=== PATIENT | female | born 1940 | race Caucasian/White ===

== ENCOUNTER 2016-12-04 13:43 | Emergency (ER) | payer MEDICARE ==
[2016-12-04 14:06] VITALS: BP 151/93
--- NOTE | 2016-12-04 14:31 | UC ---
Ear Complaint HPI - HPI Summary HPI Summary: GRAUDUAL ONSET OF DECREASED HEARING OVER THE PAST MONTH. H/O CERUMEN IMPACTIONS. NO OTHER COMPLAINTS. - History of Current Complaint Chief Complaint: UCEar Stated Complaint: LEFT EAR COMPLAINT Time Seen by Provider: 12/04/16 14:17 Hx Obtained From: Patient Hx Last Menstrual Period: n/a Onset/Duration: Gradual Onset, Lasting Weeks, Still Present Severity Initially: Moderate Severity Currently: Moderate Aggravating Factors: Nothing Alleviating Factors: Nothing Associated Signs/Symptoms: Positive: Hearing Loss - Allergies/Home Medications Allergies/Adverse Reactions: Allergies Allergy/AdvReac Type Severity Reaction Status Date / Time Sulfa Drugs Allergy Hives Verified 12/04/16 13:50 PMH/Surg Hx/FS Hx/Imm Hx Endocrine History Of: Denies: Diabetes, Thyroid Disease Cardiovascular History Of: Reports: Cardiac Disorders - RAPID HEART BEAT, Hypertension Respiratory History Of: Denies: COPD, Asthma GI/ History Of: Denies: Ulcer - Surgical History Surgical History: Yes Surgery Procedure, Year, and Place: L4/L5 and L5/S1 [place] [facility] [place] Family History Known Family History: Positive: Cardiac Disease - father with CAD, HTN DM, Hypertension, Diabetes - Social History Occupation: Retired Lives: With Family - SPOUSE RECENTLY PAST. Alcohol Use: None Substance Use Type: None Smoking Status (MU): Never Smoked Tobacco - Immunization History Most Recent Influenza Vaccination: Current for Season Review of Systems Constitutional: Negative Skin: Negative Eyes: Negative ENT: Other - SEE HPI Respiratory: Negative Cardiovascular: Negative Gastrointestinal: Negative Genitourinary: Negative Motor: Negative Neurovascular: Negative Musculoskeletal: Negative Neurological: Negative Psychological: Negative All Other Systems Reviewed And Are Negative: Yes Physical Exam Triage Information Reviewed: Yes Appearance: Well-Appearing, No Pain Distress, Well-Nourished Vital Signs: Initial Vital Signs Temp 98.4 F 12/04/16 13:53 Pulse 84 12/04/16 13:53 Resp 16 12/04/16 13:53 BP 151/93 12/04/16 13:53 Pulse Ox 96 12/04/16 13:53 Vital Signs Reviewed: Yes Eyes: Positive: Conjunctiva Clear. Negative: Discharge ENT: Positive: Hearing grossly normal, Pharynx normal. Negative: TMs normal - TM OCCLUDED WITH CERUMEN ON LEFT, Tonsillar swelling, Muffled/hoarse voice Neck: Positive: Supple, Nontender, No Lymphadenopathy Respiratory: Positive: Lungs clear, Normal breath sounds, No respiratory distress, No accessory muscle use Cardiovascular: Positive: RRR, No Murmur Musculoskeletal Exam: Normal Neurological: Positive: Alert, Muscle Tone Normal Psychological: Positive: Age Appropriate Behavior Skin Exam: Normal Re-Evaluation - Re-Evaluation First Eval Re-Evaluation Time: 14:30 - S/P IRRIGATION Change: Improved Ear Complaint Course/Dx - Differential Dx/Diagnosis Differential Diagnosis/HQI/PQRI: Cerumen Impaction, Otitis Externa, Otitis Media Provider Diagnoses: CERUMEN IMPACTION Discharge - Discharge Plan Condition: Stable Disposition: HOME Patient Education Materials: Cerumen Impaction (ED) Referrals: Suri Villavicencio MD [Primary Care Provider] - If Needed
== END 2016-12-04 14:43 | disposition home or self-care (01) ==
LOC: UCCORT 13:43
DX: H61.22 Impacted cerumen, left ear (principal); I10 Essential (primary) hypertension; Z88.2 Allergy status to sulfonamides
CPT/HCPCS: 99212; G0463

== ENCOUNTER 2018-07-16 06:42 | Inpatient (IN) | payer MEDICARE ==
--- OUTSIDE RECORDS SUMMARY | 2018-07-16 06:55 | XMS REPORT | Continuity of Care Document ---
:1940 External Reference #:[id number] Author Name Richa Eduardo Care Team Providers Name Role Phone Suri Villavicencio MD Primary Care Physician Unavailable Payers Type Date Identification Numbers Payment Provider Subscriber Policy Number: [id number] Medicare Carola Champion PayID: [id number] [address] [place] [address] Policy Number: [id number] [facility] [employer]. Program Carola Champion PayID: [id number] [address] [place] [address] Advance Directives Description No Information Available Problems Date Description Provider Status Onset: 10/27/2010 Spinal stenosis of lumbar region Suri Villavicencio M.D. Active Onset: 10/27/2010 Benign hypertensive heart disease without Suri Villavicencio M.D. Active congestive heart failure Onset: 10/27/2010 Carotid artery occlusion Suri Villavicencio M.D. Active Onset: 10/27/2010 Hyperlipidemia Suri Villavicencio M.D. Active Onset: 10/27/2010 Mitral valve disorder Suri Villavicencio M.D. Active Onset: 10/27/2010 Right bundle branch block Suri Villavicencio M.D. Active Family History Date Family Member(s) Problem(s) Comments General dad had diabetes, mother had cad Father Diabetes Mellitus, II Mother Coronary Artery Disease (CAD) Social History Type Date Description Comments Sex Unknown Marital Status , has cognitive impairment she is primary caregiver Cigarette Use Negative For Never Smoked Cigarettes ETOH Use Denies alcohol use Recreational Drug Use Denies Drug Use Tobacco Use Start: Unknown Patient has never smoked Smoking Status Reviewed: 03/06/18 Patient has never smoked Allergies, Adverse Reactions, Alerts Date Description Reaction Status Severity Comments 07/31/2005 Tagamet Active diarrhea 11/07/2005 Sulfa Active 10/27/2010 Benadryl Active excessive sedation Medications Medication Date Status Form Strength Qnty SIG Indications Ordering Provider Metoprolol 05/14/ Active Tablets ER 25mg 90tab 1 by I11.9 Suri Succinate ER 2017 24HR s mouth Saud, every M.D. evening mdd 1 Betamethasone 04/11/ Active Ointment 0.1% 45gm small L20.9 Suri Valerate 2016 amount to isabel Villavicencio M.DRell area twice a day Pramipexole 03/07/ Active Tablets 0.125mg 90tab one at M48.06 Suri Dihydrochloride 2016 s bedtime Ashley Villavicencio Omeprazole 05/10/ Active Capsules 40mg 90cap Take One K21.[address] s Capsule Saud, By Mouth M.DRell Every Day Enalapril Maleate 05/23/ Active Tablets 2.5mg 180ta Take One Suri 2009 bs Tablet By Saud, Mouth M.D. Twice A Day Blood Pressure 05/10/ Active Kit 1unit as I11.9 Suri Kit Manual 2009 s directed Ashley Villavicencio Aspirin 07/31/ Active Chewtabs 81mg 1 PO qd Suri 2004 Ashley Villavicencio Methimazole / Active Tablets 10mg 1 tab by Unknown 0000 mouth once a day Diclofenac Sodium 03/06/ Hx Tablets DR 50mg 60tab 1 by Suri 2017 - s mouth Saud, 04/29/ twice M.D. 2018 daily Capsaicin 03/06/ Hx Cream 0.1% 42.50 apply to Suri 2018 - 0gm right Saud, 03/13/ hand 4 M.D. 2018 times daily as needed Azithromycin 07/03/ Hx Tablets 250mg 6tabs 2 by J20.9 Suri 2017 - mouth Saud, 10/25/ today, 1 M.D. 2018 by mouth day 2 thru 5 Cyclobenzaprine 11/13/ Hx Tablets 10mg 45tab take 1 M51.9 Suri HCL 2017 - s tablet by Saud, 10/25/ mouth M.D. 2018 three times a day if needed Lidocaine 11/13/ Hx Ointment 5% 60gm apply to S33.5xxA Suri 2017 - affected Saud, 04/11/ area up M.D. 2016 to twice a day Naproxen 11/13/ Hx Tablets 500mg 30tab 1 by S33.5xxA Suri 2016 mouth Saud, 06/25/ twice a M.D. 2017 day as needed Amoxicillin/Clavu 08/09/ Hx Tablets 500-125mg 20tab 1 po bid J01.90 Suri lanate Potassium 2015 Saud, 09/26/ M.D. 2016 Amoxicillin/Clavu 05/29/ Hx Tablets 500-125mg 20tab 1 po bid J20.9 Suri lanate Potassium 2015 Saud, 08/09/ M.D. 2016 Ropinirole HCL 12/29/ Hx Tablets 0.25mg 90tab 1 tab by G25.81 Suri 2015 mouth Saud, 03/07/ every M.D. 2016 night at bedtime may increase to every 8 hours as needed for leg spasms Amoxicillin/Clavu 09/27/ Hx Tablets 500-125mg 20tab 1 po bid J20.8 Suri lanate Potassium 2015 Saud, M.D. 2016 Silver 07/15/ Hx Cream 1% 50gms apply to 682.2 Suri Sulfadiazine 2012 - open Saud, 12/14/ areas bid M.D. 2014 Gabapentin 06/18/ Hx Capsules 100mg 30cap 1 po at 724.02 Suri 2012 hs Saud, M.D. 2016 Metoprolol 02/13/ Hx Tablets ER 25mg 60tab take one I11.9 Suri Succinate ER 2011 - 24HR s tablet by Saud, 05/14/ mouth M.D. 2017 every other day Omeprazole 05/10/ Hx Capsules 40mg 1 po bid 530.81 Suri 2010 Carlton Villavicencio, 05/10/ M.D. 2010 Erythromycin Base 11/09/ Hx Tablets 500mg 20tab 1 by J20.8 Suri 2010 mouth Saud, 12/29/ twice a M.D. 2015 day Benadryl 10/19/ Hx Capsules 25mg 50cap 1 po prn 977.9 Suir 2010 jolly Villavicencio, 10/27/ directed M.D. 2010 Amoxicillin/Clavu 10/19/ Hx Tablets 500-125mg 20tab 1 po bid 977.9 Suri lanate Potassium 2010 Saud, M.D. 2010 Cyclobenzaprine 09/14/ Hx Tablets 10mg 60tab take 1 M51.9 Suri HCL 2010 - tablet by Saud, 11/13/ mouth M.D. 2016 three times a day if needed Naproxen Sodium 09/14/ Hx Tablets 550mg 60tab 1 po bid 722.93 Suri 2010 - s Saud, M.D. 2015 Amlodipine 09/08/ Hx Tablets 5mg 30tab 1 po qd 402.10 Suri Besylate 2010 - s Saud, M.D. 2010 Tramadol HCL 05/10/ Hx Tablets 50mg 60tab 1 po q 6 Suri 2009 - s hours prn Saud, 02/13/ pain M.D. 2011 Omeprazole Hx Capsules 20mg 30cap 1 po qd 530.81 Suri 2009 - DR warren at Saud, 05/10/ bedtime M.D. 2010 Cyclobenzaprine 11/11/ Hx Tablets 5mg 20tab i bid 722.20 Suri HCL 2009 - s Saud, M.D. 2010 Lidoderm 11/11/ Hx Patches 5% 30uni apply 722.20 Suri 2009 - ts patch to Saud, 02/13/ affected M.D. 2011 area of back change daily Flector 11/11/ Hx Patches 1.3% 5unit 1 patch 722.20 Suri 2009 - s to Saud, 02/13/ affected M.D. 2011 area Voltaren 11/11/ Hx Gel 1% 1tube 4 inches 722.20 Suri 2009 - as Saud, 02/13/ directed M.D. 2011 to affected area qid. Fish Oil 07/29/ Hx Capsules 1000mg 1 cap qd Suri 2008 - Saud, 02/13/ M.D. 2011 Lotrisone 01/29/ Hx Cream 0.05%;1 % 15gm Apply AD 692.89 Suri 2005 - sherin Saud, M.D. 2005 Ranitidine 11/07/ Hx Tablets 75mg 15tab 1 qd 995.3 Suri 2005 - s Saud M.D. 2005 Bactrim DS 10/23/ Hx Tablets 160mg;800 14tab 1 PO bid Suri 2006 - mg s Saud, M.DRell 2006 Amoxil 09/25/ Hx Tablets 500mg QS 1 PO tid 381.10 Suri 2005 - X 5 Days Saud, M.DRell 2005 Vasotec 07/31/ Hx Tablets 2.5mg 100ta po qd Suri 2004 - bs Saud, .D. 2009 Vitamin C 07/31/ Hx Tablets 500mg 1 PO qd Suri 2004 Carlton Villavicencio, M.D. 2011 Vitamin E 07/31/ Hx Capsules 400Units 1 PO qd Suri 2004 Saud, M.D. 2011 Calcium Carbonate 07/31/ Hx Tablets 500mg 1 po qd Suri / Vit D 2004 Saud, .D. 2017 Famotidine / Hx Tablets 20mg Unknown 0000 - 2017 Oxycodone-Acetami 00/ Hx Tablets 5-325mg Take One Unknown nophen 0000 - Tablet By 2017 Every 4 To 6 Hours Maximum Daily Dose 6 Ondansetron / Hx Tablets 4mg Unknown 0000 - Dispers 2017 Oxycodone-Acetami 00/ Hx Tablets 5-325mg Unknown nophen 0000 - 2017 Medications Administered in Office Medication Date Status Form Strength Qnty SIG Indications Ordering Provider B-12 Injection Administered Injection Suri Villavicencio M.D. Immunizations CPT Code Status Date Vaccine Lot # [id number] Given 05/14/2018 Influenza Virus (Afluria) Split Virus 3 Years Of Age And Older Q2035 Given 04/30/2017 Influenza Virus (Afluria) Split Virus 3 Years [id number] Of Age And Older Q2037 Given 07/03/2016 Influenza Vaccine (Fluvirin) 3 Years Of Age Or [id number] Older Q2035 Given 06/09/2015 Influenza Virus (Afluria) Split Virus 3 Years [id number] Of Age And Older Q2037 Given 05/04/2014 Influenza Vaccine (Fluvirin) 3 Years Of Age Or Older Q2037 Given 05/04/2014 Influenza Vaccine (Fluvirin) 3 Years Of Age Or [id number] Older Q2035 Given 06/18/2013 Influenza Virus (Afluria) Split Virus 3 Years [id number] Of Age And Older Q2037 Given 06/17/2012 Influenza Vaccine (Fluvirin) 3 Years Of Age Or [id number] Older Q2036 Given 04/27/2011 Flulaval [id number] 82526 Given 05/23/2010 Influenza Vaccine [id number] 35593 Given 05/06/2009 Influenza Vaccine [id number] 90701 Given 01/28/2009 Tetanus Shot [id number] 31817 Given 05/28/2008 Influenza Vaccine [id number] 54399 Given 05/31/2007 Influenza Vaccine [id number] 60005 Given 05/28/2006 Influenza Vaccine [id number] 14454 Given 06/13/2005 Influenza Vaccine [id number] 71453 Given 06/13/2005 Influenza Vaccine 55972 Given 07/22/2004 Influenza Vaccine 40402 Given 04/20/2002 [place] [address] Given 05/20/1997 DT Immunization DIP/Tet (History Only) Vital Signs Date Vital Result Comment 06/25/2018 10:54am BP Systolic 150 mmHg BP Diastolic 80 mmHg Heart Rate 90 /min Height 60 inches 5'0" Weight 160.00 lb BMI (Body Mass Index) 31.2 kg/m2 O2 % BldC Oximetry 94 % 05/14/2018 1:53pm BP Systolic 136 mmHg BP Diastolic 70 mmHg Heart Rate 101 /min Respiratory Rate 18 /min Height 60 inches 5'0" Weight 169.00 lb BMI (Body Mass Index) 33.0 kg/m2 O2 % BldC Oximetry 96 % 04/29/2018 9:58am BP Systolic 138 mmHg BP Diastolic 70 mmHg Heart Rate 116 /min Respiratory Rate 18 /min Height 60 inches 5'0" Weight 169.00 lb BMI (Body Mass Index) 33.0 kg/m2 O2 % BldC Oximetry 95 % 04/01/2018 2:48pm BP Systolic 138 mmHg BP Diastolic 80 mmHg Heart Rate 106 /min Respiratory Rate 18 /min Height 60 inches 5'0" Weight 167.00 lb BMI (Body Mass Index) 32.6 kg/m2 O2 % BldC Oximetry 95 % 03/13/2018 3:24pm BP Systolic 154 mmHg BP Diastolic 80 mmHg Height 60 inches 5'0" Weight 167.00 lb BMI (Body Mass Index) 32.6 kg/m2 03/06/2018 9:44am BP Systolic 152 mmHg BP Diastolic 70 mmHg Height 60 inches 5'0" Weight 167.00 lb BMI (Body Mass Index) 32.6 kg/m2 10/25/2017 9:49am BP Systolic 178 mmHg BP Diastolic 84 mmHg BP Systolic Recheck 140 mmHg BP Diastolic Recheck 82 mmHg Height 60 inches 5'0" Weight 173.00 lb BMI (Body Mass Index) 33.8 kg/m2 07/03/2017 10:36am BP Systolic 160 mmHg BP Diastolic 90 mmHg Heart Rate 86 /min Body Temperature 96.0 F O2 % BldC Oximetry 96 % 04/30/2017 11:19am BP Systolic 160 mmHg BP Diastolic 80 mmHg Height 60 inches 5'0" Weight 177.00 lb BMI (Body Mass Index) 34.6 kg/m2 04/11/2017 1:41pm BP Systolic 158 mmHg BP Diastolic 90 mmHg Height 60 inches 5'0" 12/27/2016 9:57am BP Systolic 140 mmHg BP Diastolic 80 mmHg Height 62 inches 5'2" Weight 177.00 lb BMI (Body Mass Index) 32.4 kg/m2 11/13/2016 1:30pm BP Systolic 150 mmHg BP Diastolic 80 mmHg 09/26/2016 2:38pm BP Systolic 130 mmHg BP Diastolic 90 mmHg 09/12/2016 10:37am BP Systolic 140 mmHg BP Diastolic 90 mmHg 08/09/2016 2:49pm BP Systolic 148 mmHg BP Diastolic 72 mmHg Body Temperature 97.7 F 07/03/2016 11:10am BP Systolic 142 mmHg BP Diastolic 80 mmHg Height 60 inches 5'0" Weight 178.00 lb BMI (Body Mass Index) 34.8 kg/m2 05/29/2016 11:33am BP Systolic 150 mmHg BP Diastolic 90 mmHg Body Temperature 99.5 F 04/18/2016 11:15am BP Systolic 122 mmHg BP Diastolic 74 mmHg Height 60 inches 5'0" Weight 165.00 lb BMI (Body Mass Index) 32.2 kg/m2 03/07/2016 2:22pm BP Systolic 140 mmHg BP Diastolic 80 mmHg 12/30/2015 10:24am BP Systolic 136 mmHg BP Diastolic 70 mmHg Height 60 inches 5'0" Weight 175.00 lb BMI (Body Mass Index) 34.2 kg/m2 09/27/2015 11:50am BP Systolic 130 mmHg BP Diastolic 80 mmHg 06/09/2015 10:58am BP Systolic 140 mmHg BP Diastolic 80 mmHg Height 60 inches 5'0" Weight 176.00 lb BMI (Body Mass Index) 34.4 kg/m2 03/08/2015 11:31am BP Systolic 140 mmHg BP Diastolic 80 mmHg Height 60 inches 5'0" Weight 178.00 lb BMI (Body Mass Index) 34.8 kg/m2 12/14/2014 2:53pm BP Systolic 128 mmHg BP Diastolic 80 mmHg Body Temperature 98.7 F 12/08/2014 11:02am BP Systolic 156 mmHg BP Diastolic 86 mmHg Height 60 inches 5'0" Weight 174.00 lb BMI (Body Mass Index) 34.0 kg/m2 11/09/2014 11:40am BP Systolic 140 mmHg BP Diastolic 80 mmHg 06/15/2014 1:37pm BP Systolic 148 mmHg BP Diastolic 90 mmHg BP Systolic Recheck 136 mmHg BP Diastolic Recheck 82 mmHg Height 60 inches 5'0" Weight 168.00 lb BMI (Body Mass Index) 32.8 kg/m2 12/16/2013 2:02pm BP Systolic 116 mmHg BP Diastolic 70 mmHg Height 60 inches 5'0" Weight 166.00 lb BMI (Body Mass Index) 32.4 kg/m2 07/23/2013 11:13am BP Systolic 140 mmHg BP Diastolic 70 mmHg 06/18/2013 11:12am BP Systolic 130 mmHg BP Diastolic 80 mmHg Height 60 inches 5'0" Weight 169.00 lb BMI (Body Mass Index) 33.0 kg/m2 03/17/2013 10:55am BP Systolic 122 mmHg BP Diastolic 70 mmHg Height 60 inches 5'0" Weight 171.00 lb BMI (Body Mass Index) 33.4 kg/m2 12/16/2012 11:03am BP Systolic 142 mmHg BP Diastolic 88 mmHg Height 60 inches 5'0" Weight 171.00 lb BMI (Body Mass Index) 33.4 kg/m2 08/01/2012 11:50am BP Systolic 140 mmHg BP Diastolic 74 mmHg 06/17/2012 11:08am BP Systolic 142 mmHg BP Diastolic 84 mmHg Height 60 inches 5'0" Weight 172.00 lb BMI (Body Mass Index) 33.6 kg/m2 02/14/2012 11:11am BP Systolic 136 mmHg BP Diastolic 78 mmHg Height 60 inches 5'0" Weight 174.00 lb BMI (Body Mass Index) 34.0 kg/m2 08/09/2011 2:19pm BP Systolic 130 mmHg BP Diastolic 70 mmHg BP Systolic Recheck 114 mmHg BP Diastolic Recheck 68 mmHg Height 60 inches 5'0" Weight 171.00 lb BMI (Body Mass Index) 33.4 kg/m2 05/10/2011 2:55pm BP Systolic 141 mmHg BP Diastolic 80 mmHg Height 60 inches 5'0" Weight 174.00 lb BMI (Body Mass Index) 34.0 kg/m2 04/27/2011 11:16am BP Systolic 130 mmHg BP Diastolic 70 mmHg Weight 174.00 lb 03/20/2011 2:18pm BP Systolic 132 mmHg BP Diastolic 72 mmHg Height 60 inches 5'0" Weight 175.00 lb BMI (Body Mass Index) 34.2 kg/m2 01/23/2011 10:33am BP Systolic 138 mmHg BP Diastolic 70 mmHg Height 60 inches 5'0" Weight 175.00 lb BMI (Body Mass Index) 34.2 kg/m2 11/09/2010 10:27am BP Systolic 132 mmHg BP Diastolic 80 mmHg Body Temperature 98.6 F Height 60 inches 5'0" Weight 175.00 lb BMI (Body Mass Index) 34.2 kg/m2 10/27/2010 12:21pm BP Systolic 120 mmHg BP Diastolic 72 mmHg 10/19/2010 1:32pm BP Systolic 146 mmHg BP Diastolic 80 mmHg Weight 169.00 lb 10/06/2010 10:05am BP Systolic 140 mmHg BP Diastolic 70 mmHg Weight 169.00 lb 09/14/2010 10:29am BP Systolic 156 mmHg BP Diastolic 88 mmHg Weight 169.00 lb 09/08/2010 12:33pm BP Systolic 160 mmHg BP Diastolic 90 mmHg 09/06/2010 10:17am BP Systolic 164 mmHg BP Diastolic 92 mmHg Weight 170.00 lb 08/10/2010 9:52am BP Systolic 138 mmHg BP Diastolic 72 mmHg Height 60 inches 5'0" Weight 170.00 lb BMI (Body Mass Index) 33.2 kg/m2 05/23/2010 10:40am BP Systolic 148 mmHg BP Diastolic 78 mmHg 05/23/2010 10:15am BP Systolic 160 mmHg BP Diastolic 84 mmHg 05/10/2010 12:13pm BP Systolic 180 mmHg BP Diastolic 86 mmHg 05/10/2010 11:18am BP Systolic 210 mmHg BP Diastolic 88 mmHg Height 62 inches 5'2" Weight 173.00 lb BMI (Body Mass Index) 31.6 kg/m2 02/15/2010 10:59am BP Systolic 122 mmHg BP Diastolic 70 mmHg Height 59.50 inches 4'11.50" Weight 170.00 lb BMI (Body Mass Index) 33.8 kg/m2 11/29/2009 10:30am BP Systolic 138 mmHg BP Diastolic 82 mmHg 11/15/2009 10:44am BP Systolic 140 mmHg BP Diastolic 86 mmHg 11/11/2009 1:39pm BP Systolic 128 mmHg BP Diastolic 80 mmHg 07/29/2009 11:50am BP Systolic 146 mmHg BP Diastolic 84 mmHg 07/29/2009 10:28am BP Systolic 154 mmHg BP Diastolic 90 mmHg Weight 170.00 lb 01/28/2009 10:24am BP Systolic 146 mmHg BP Diastolic 78 mmHg Height 59.50 inches 4'11.50" Weight 169.00 lb BMI (Body Mass Index) 33.6 kg/m2 10/02/2008 10:23am BP Systolic 130 mmHg BP Diastolic 80 mmHg Height 59.50 inches 4'11.50" Weight 168.00 lb BMI (Body Mass Index) 33.4 kg/m2 07/30/2008 10:12am BP Systolic 144 mmHg BP Diastolic 90 mmHg Height 59.50 inches 4'11.50" Weight 172.00 lb BMI (Body Mass Index) 34.2 kg/m2 03/18/2008 10:10am BP Systolic 124 mmHg BP Diastolic 68 mmHg Height 59.50 inches 4'11.50" Weight 173.00 lb BMI (Body Mass Index) 34.4 kg/m2 01/30/2008 9:55am BP Systolic 140 mmHg BP Diastolic 88 mmHg Height 59.50 inches 4'11.50" Weight 175.00 lb BMI (Body Mass Index) 34.8 kg/m2 08/01/2007 10:23am BP Systolic 144 mmHg BP Diastolic 86 mmHg Height 59.50 inches 4'11.50" Weight 173.00 lb BMI (Body Mass Index) 34.4 kg/m2 01/24/2007 12:10pm BP Systolic 146 mmHg BP Diastolic 78 mmHg Height 59.50 inches 4'11.50" Weight 175.00 lb BMI (Body Mass Index) 34.8 kg/m2 07/30/2006 1:49pm BP Systolic 138 mmHg BP Diastolic 70 mmHg Height 59.50 inches 4'11.50" Weight 178.00 lb BMI (Body Mass Index) 35.3 kg/m2 01/29/2006 1:54pm BP Systolic 132 mmHg BP Diastolic 84 mmHg Weight 175.00 lb 11/07/2005 12:01pm BP Systolic 130 mmHg BP Diastolic 84 mmHg 10/13/2005 12:03pm BP Systolic 130 mmHg BP Diastolic 82 mmHg Body Temperature 97.7 F Weight 176.00 lb 09/25/2005 1:43pm BP Systolic 142 mmHg BP Diastolic 92 mmHg Weight 176.00 lb Results Test Date Facility Test Result H/L Range Note Laboratory test 01/15/2018 [facility] SEE RESULT [address] [place] [place] [address] [phone] CBC W/ Diff & 10/15/2017 [facility] WBC 5.7 3.8-10.[address] thous/[place] [address] [phone] RBC 5.21 mill/L High 3.80-5.10 Hemoglobin 13.1 g/dL 11.7-15.5 Hematocrit 39.7 % 35.0-45.0 MCV 76.3 FL Low 80.0-100.0 MCH 25.1 pg Low 27.0-33.0 MCHC 32.8 g/dL 32.0-36.0 RDW 14.6 % 11.0-15.0 Platelet Count 188 thous/L 140-400 Platelet Sufficiency PENDING MPV 8.3 FL 7.5-12.5 Neutrophils,Absolute 2710 cells/L 4160-5502 Bands,Absolute PENDING Metamyelocytes,Absolute PENDING Myelocytes,Absolute PENDING Promyelocytes,Absolute PENDING Lymphocytes,Absolute 2370 cells/L 850-3900 Monocytes,Absolute 400 cells/L 200-950 Eosinophils,Absolute 160 cells/L 15-500 Basophils,Absolute 20 cells/L 0-200 Blast Cells,Absolute PENDING Nucleated RBC,Absolute PENDING Total Neutrophils,% 48 % 40-75 Bands,% PENDING Metamyelocytes,% PENDING Myelocytes,% PENDING Promyelocytes,% PENDING Total Lymphocytes,% 42 % 12-47 Monocytes,% 7 % 4-12 Eosinophils,% 3 % 0-4 Basophils,% 0 % 0-1 2 Blasts,% PENDING Nucleated RBC PENDING RBC Morphology PENDING Anisocytosis PENDING Poikilocytosis PENDING Microcytosis PENDING Macrocytosis PENDING Polychromasia PENDING Hypochromasia PENDING Target Cells PENDING Basophilic Stippling PENDING Comment PENDING Basic Metabolic Panel 10/15/2017 [facility] Sodium 141 mmol/L 135-[address] [place] [address] [phone] Potassium 4.2 mmol/L 3.5-5.3 Chloride 106 mmol/L 98-110 Carbon Dioxide 28 mmol/L 20-31 Calcium 9.0 mg/dL 8.6-10.4 Glucose 108 mg/dL High 65-99 3 Urea Nitrogen (BUN) 13 mg/dL 7-25 Creatinine 0.74 mg/dL 0.60-0.93 4 BUN/Creatinine Ratio 17.7 6-22 Egfr Non-Afr. Citizen Of [place] 78 ML/MIN/1.73M2 > Or=60 Egfr 91 ML/MIN/1.73M2 > Or=60 Lipid Panel 10/15/2017 [facility] Cholesterol 161 mg/dL <[address] [place] [address] [phone] HDL Cholesterol 29 mg/dL Low >50 Cholesterol/HDL Ratio 5.6 CALC High <5.0 LDL Chol,Calculated 103 mg/dL High 0-100 5 Triglycerides 170 mg/dL High <150 Non-HDL Cholesterol 132 mg/dL High <130 6 Laboratory test 10/15/2017 [facility] Hemoglobin A1c 5.8 % High 0-5.6 [address] [place] [address] [phone] Laboratory test 07/18/2017 [facility] SEE RESULT [address] [place] [place] [address] [phone] Laboratory test 05/22/2017 [facility] SEE RESULT [address] [place] [place] [address] [phone] Basic Metabolic 04/24/2017 [facility] Sodium 140 mmol/L 135-[address] [place] [address] [phone] Potassium 4.3 mmol/L 3.5-5.3 Chloride 104 mmol/L 98-110 Carbon Dioxide 25 mmol/L 20-31 Calcium 9.2 mg/dL 8.6-10.4 Glucose 129 mg/dL High 65-99 10 Urea Nitrogen 15 mg/dL 7-25 Creatinine 0.82 mg/dL 0.60-0.93 11 BUN/Creatinine Ratio 17.9 6-22 Egfr Non-Afr. Citizen Of [place] 69 ML/MIN/1.73M2 > Or=60 Egfr 80 ML/MIN/1.73M2 > Or=60 Laboratory test 04/24/2017 [facility] Hemoglobin A1c 6.1 % High 0-5.6 [address] [place], [place] [id number] [phone] TSH & T4,Free 04/24/2017 [facility] TSH 1.14 0.40-4.[address] mIU/L [place], [place] [id number] [phone] T4,Free 1.7 ng/dL 0.8-1.8 Iron Deficiency Profile 04/24/2017 [facility] Iron,Total 79 g/dL 45- [address] [place] [address] [phone] Tibc 395 g/dL 250-450 % Saturation 20 % 11-50 Ferritin 19 NG/ML Low 20-288 Ua RFX Micro & 04/19/2017 [facility] Urine Color YELLOW Yellow 14 Culture II [address] [place] [address] [phone] Urine Clarity CLEAR Clear Urine Glucose - Dipstick NEGATIVE mg/dL Negative Urine Bilirubin - Dipstick NEGATIVE Negative Urine Ketone NEGATIVE mg/dL Negative Urine Specific Dale >=1.030 1.010-1.030 Urine Blood NEGATIVE Negative Urine PH 5.0 Low 6.5-7.5 Urine Protein - Dipstick TRACE mg/dL Negative Urine Urobilinogen - Dipstick 0.2 E.U./dL 0.2-1.0 Urine Nitrite - Dipstick NEGATIVE Negative Urine Leuk Esterase NEGATIVE Negative Source: URINE, CLEAN CAT <SEE NOTE> 15 CBS W/Automated 04/19/2017 [facility] White Blood 6.7 K/uL 3.1-10.[address] [place] [address] [phone] Red Blood Count 5.26 M/uL 3.90-5.40 Hemoglobin 13.9 gm/dL 11.6-15.8 Hematocrit 41.2 % 36.0-46.1 Mean Cell Volume 78.3 fl Low 80.9-99.0 Mean Corpuscular HGB 26.4 pg 25.9-32.7 Mean Corpuscular HGB Conc 33.7 g/dL 30.8-34.3 Platelet Count 197 K/uL 150-400 Red Cell Distri Width SD 38.6 fl 3-47 Red Cell Distri Width %CV 13.6 % 11.7-14.4 Mean Platelet Volume 9.5 fL 8.9-12.4 Neut% 55.3 % 40.4-72.8 Lymph % 33.6 % 20.0-42.0 [place] % 8.1 % 4.3-13.2 Eo% 2.7 % 0.0-6.6 Bas% 0.3 % 0.0-1.1 Neut# 3.68 K/uL 1.8-7.0 Lymph # 2.24 K/uL 1.0-4.0 [place] # 0.54 K/uL 0.3-0.9 Eos # 0.18 K/uL 0.0-0.5 Baso # 0.02 K/uL 0.0-0.1 Comprehensive 04/19/2017 [facility] Glucose 190 mg/ dL High 74-106 Metabolic Panel [address] [place], [place] [id number] [phone] BUN 17 mg/dL 7-18 Creatinine 1.0 mg/dL 0.6-1.3 Glom Filtration Rate, Estimate 57 mL/min >60 If >60 mL/min >60 16 BUN/Creat 17.0 ratio Sodium 143 mmol/L 136-145 Potassium 4.0 mmol/L 3.5-5.1 Chloride 109 mmol/L High 98-107 Carbon Dioxide 27 mmol/L 21-32 Anion Gap 7 mEq/L Low 8-16 Calcium 9.0 mg/dL 8.5-10.1 Total Protein 7.7 g/dL 6.4-8.2 Albumin 3.7 g/dL 3.4-5.0 Globulin 4.0 g/dL 1.9-4.3 Alb/Glob 0.9 ratio Bilirubin,Total 0.5 mg/dL 0.2-1.0 Sgot/Ast 42 U/L High 15-37 SGPT/Alt 57 U/L 12-78 Alkaline Phosphatase 113 U/L 45-117 Laboratory test 04/19/2017 [facility] Lipase 353 U/L 73-[address] [place] [address] [phone] Laboratory test 04/19/2017 [facility] Troponin-I < 0.015 [address] ng/[place] [address] [phone] CBC W/ Diff & PLT 12/20/2016 [facility] WBC 6.1 3.8-10.[address] [place] [address] [phone] RBC 5.35 mill/L High 3.80-5.10 Hemoglobin 13.7 g/dL 11.7-15.5 Hematocrit 42.5 % 35.0-45.0 MCV 79.5 FL Low 80.0-100.0 MCH 25.6 pg Low 27.0-33.0 MCHC 32.2 g/dL 32.0-36.0 RDW 14.1 % 11.0-15.0 Platelet Count 213 thous/L 140-400 Platelet Sufficiency PENDING MPV 8.3 FL 7.5-12.5 Neutrophils,Absolute 3370 cells/L 4788-1580 Bands,Absolute PENDING Metamyelocytes,Absolute PENDING Myelocytes,Absolute PENDING Promyelocytes,Absolute PENDING Lymphocytes,Absolute 2110 cells/L 850-3900 Monocytes,Absolute 400 cells/L 200-950 Eosinophils,Absolute 200 cells/L 15-500 Basophils,Absolute 30 cells/L 0-200 Blast Cells,Absolute PENDING Nucleated RBC,Absolute PENDING Total Neutrophils,% 55 % 40-75 Bands,% PENDING Metamyelocytes,% PENDING Myelocytes,% PENDING Promyelocytes,% PENDING Total Lymphocytes,% 35 % 12-47 Monocytes,% 7 % 4-12 Eosinophils,% 3 % 0-4 Basophils,% 0 % 0-1 19 Blasts,% PENDING Nucleated RBC PENDING RBC Morphology PENDING Anisocytosis PENDING Poikilocytosis PENDING Microcytosis PENDING Macrocytosis PENDING Polychromasia PENDING Hypochromasia PENDING Target Cells PENDING Basophilic Stippling PENDING Comment PENDING Basic Metabolic Panel 12/20/2016 [facility] Sodium 141 mmol/L 135-[address] [place] [address] [phone] Potassium 4.3 mmol/L 3.5-5.3 Chloride 107 mmol/L 98-110 Carbon Dioxide 28 mmol/L 20-31 Calcium 9.3 mg/dL 8.6-10.4 Glucose 131 mg/dL High 65-99 20 Urea Nitrogen 13 mg/dL 7-25 Creatinine 0.73 mg/dL 0.60-0.93 21 BUN/Creatinine Ratio 18.2 6-22 Egfr Non-Afr. Citizen Of [place] 80 ML/MIN/1.73M2 > Or=60 Egfr 93 ML/MIN/1.73M2 > Or=60 CBC W/ Diff & PLT 09/12/2016 [facility] WBC 4.6 thous/L 3.8-10.8 [address] [facility] [place] [place] [address] [phone] RBC 5.17 mill/L High 3.80-5.10 Hemoglobin 13.9 g/dL 11.7-15.5 Hematocrit 41.8 % 35.0-45.0 MCV 80.8 FL 80.0-100.0 MCH 26.9 pg Low 27.0-33.0 MCHC 33.3 g/dL 32.0-36.0 RDW 13.9 % 11.0-15.0 Platelet Count 196 thous/L 140-400 Platelet Sufficiency PENDING MPV 8.9 FL 7.5-12.5 Neutrophils,Absolute 2650 cells/L 8428-7216 Bands,Absolute PENDING Metamyelocytes,Absolute PENDING Myelocytes,Absolute PENDING Promyelocytes,Absolute PENDING Lymphocytes,Absolute 1520 cells/L 850-3900 Monocytes,Absolute 280 cells/L 200-950 Eosinophils,Absolute 130 cells/L 15-500 Basophils,Absolute 20 cells/L 0-200 Blast Cells,Absolute PENDING Nucleated RBC,Absolute PENDING Total Neutrophils,% 58 % 40-75 Bands,% PENDING Metamyelocytes,% PENDING Myelocytes,% PENDING Promyelocytes,% PENDING Total Lymphocytes,% 33 % 12-47 Monocytes,% 6 % 4-12 Eosinophils,% 3 % 0-4 Basophils,% 0 % 0-1 22 Blasts,% PENDING Nucleated RBC PENDING RBC Morphology PENDING Anisocytosis PENDING Poikilocytosis PENDING Microcytosis PENDING Macrocytosis PENDING Polychromasia PENDING Hypochromasia PENDING Target Cells PENDING Basophilic Stippling PENDING Comment PENDING Basic Metabolic Panel 09/12/2016 [facility] Sodium 143 mmol/L 135-[address] [place] [address] [phone] Potassium 3.8 mmol/L 3.5-5.3 Chloride 107 mmol/L 98-110 Carbon Dioxide 27 mmol/L 20-31 Calcium 9.5 mg/dL 8.6-10.4 Glucose 165 mg/dL High 65-99 23 Urea Nitrogen 17 mg/dL 7-25 Creatinine 0.88 mg/dL 0.60-0.93 24 BUN/Creatinine Ratio 19.0 6-22 Egfr Non-Afr. Citizen Of [place] 64 ML/MIN/1.73M2 > Or=60 Egfr 74 ML/MIN/1.73M2 > Or=60 BMP W/O Egfr 04/11/2016 [facility] Sodium 141 mmol/L 135-[address] [place] [address] [phone] Potassium 4.2 mmol/L 3.5-5.3 Chloride 107 mmol/L 98-110 Carbon Dioxide 25 mmol/L 20-31 Calcium 9.5 mg/dL 8.6-10.4 Glucose 131 mg/dL High 65-99 25 Urea Nitrogen 19 mg/dL 7-25 Creatinine 0.86 mg/dL 0.60-0.93 26 BUN/Creatinine Ratio 22.3 High 6-22 Laboratory test finding 04/11/2016 [facility] Magnesium 2.1 mg/dL 1.5- 2.[address] [place] [address] [phone] Vitamin B12,Serum 486 pg/mL 200-1100 Iron,Total 89 g/dL 45-160 BMP W/O Egfr 12/13/2015 [facility] Sodium 142 mmol/L 135-[address] [place] [address] [phone] Potassium 4.5 mmol/L 3.5-5.3 Chloride 106 mmol/L 98-110 Carbon Dioxide 27 mmol/L 19-30 Calcium 9.8 mg/dL 8.6-10.4 Glucose 112 mg/dL High 65-99 27 Urea Nitrogen 20 mg/dL 7-25 Creatinine 0.79 mg/dL 0.60-0.93 28 BUN/Creatinine Ratio 25.8 High 6-22 Laboratory test 12/13/2015 [facility] LDL 131 mg/dL High <130 [address] [place] [address] [phone] BMP W/O Egfr 06/02/2015 [facility] Sodium 141 mmol/L 135-146 [address] [facility] [place] [place] [address] [phone] Potassium 4.2 mmol/L 3.5-5.3 Chloride 106 mmol/L 98-110 Carbon Dioxide 27 mmol/L 19-30 Calcium 9.5 mg/dL 8.6-10.4 Glucose 117 mg/dL High 65-99 30 Urea Nitrogen 16 mg/dL 7-25 Creatinine 0.83 mg/dL 0.60-0.93 31 BUN/Creatinine Ratio 19.5 6-22 Lipid Panel 06/02/2015 [facility] Cholesterol 202 mg/dL High 125-200 [address] [facility] [place] [place] [address] [phone] HDL Cholesterol 31 mg/dL Low > Or=46 Cholesterol/HDL Ratio 6.5 High < Or=5.0 LDL Chol,Calculated 128 mg/dL <130 32 Triglycerides 217 mg/dL High <150 Non-HDL Cholesterol 171 mg/dL High 33 CBC W/ Diff & PLT 06/02/2015 [facility] WBC 6.0 thous/L 3.8-10.8 [address] [facility] [place] [place] [address] [phone] RBC 5.02 mill/L 3.80-5.10 Hemoglobin 14.4 g/dL 11.7-15.5 Hematocrit 43.5 % 35.0-45.0 MCV 86.5 FL 80.0-100.0 MCH 28.6 pg 27.0-33.0 MCHC 33.0 g/dL 32.0-36.0 RDW 12.9 % 11.0-15.0 Platelet Count 185 thous/L 140-400 Platelet Sufficiency PENDING MPV 7.9 FL 7.5-11.5 Neutrophils,Absolute 3440 cells/L 0911-5056 Bands,Absolute PENDING Metamyelocytes,Absolute PENDING Myelocytes,Absolute PENDING Promyelocytes,Absolute PENDING Lymphocytes,Absolute 1930 cells/L 850-3900 Monocytes,Absolute 450 cells/L 200-950 Eosinophils,Absolute 130 cells/L 15-500 Basophils,Absolute 30 cells/L 0-200 Blast Cells,Absolute PENDING Nucleated RBC,Absolute PENDING Total Neutrophils,% 58 % 40-75 Bands,% PENDING Metamyelocytes,% PENDING Myelocytes,% PENDING Promyelocytes,% PENDING Total Lymphocytes,% 32 % 12-47 Monocytes,% 8 % 4-12 Eosinophils,% 2 % 0-4 Basophils,% 0 % 0-1 34 Blasts,% PENDING Nucleated RBC PENDING RBC Morphology PENDING Anisocytosis PENDING Poikilocytosis PENDING Microcytosis PENDING Macrocytosis PENDING Polychromasia PENDING Hypochromasia PENDING Target Cells PENDING Basophilic Stippling PENDING Comment PENDING Laboratory test finding 12/01/2014 [facility] LDL 115 mg/dL <130 35 [address] [place] [address] [phone] Cholesterol 183 mg/dL 125-200 Glucose 111 mg/dL High 65-99 36 Laboratory test finding 06/08/2014 [facility] LDL 114 mg/dL <130 37 [address] [place] [address] [phone] Cholesterol 190 mg/dL 125-200 Glucose 102 mg/dL High 65-99 38 BMP W/O Egfr 12/01/2013 [facility] Sodium 143 mmol/L 135-146 [address] [place] [address] [phone] Potassium 4.3 mmol/L 3.5-5.3 Chloride 106 mmol/L 98-110 Carbon Dioxide 27 mmol/L 19-30 Calcium 9.8 mg/dL 8.6-10.4 Glucose 94 mg/dL 65-99 39 Urea Nitrogen 17 mg/dL 7-25 Creatinine 0.83 mg/dL 0.60-0.93 40 BUN/Creatinine Ratio 21.0 6-22 Lipid Panel 12/01/2013 [facility] Cholesterol 212 mg/dL High 125-[address] [place] [address] [phone] HDL Cholesterol 34 mg/dL Low > Or=46 Cholesterol/HDL Ratio 6.2 High < Or=5.0 LDL Chol,Calculated 137 mg/dL High <130 41 Triglycerides 204 mg/dL High <150 Non-HDL Cholesterol 178 mg/dL High 42 CBC W/ Diff & PLT 12/01/2013 [facility] WBC 6.8 thous/L 3.8-10.[address] [place] [address] [phone] RBC 5.16 mill/L High 3.80-5.10 Hemoglobin 15.2 g/dL 11.7-15.5 Hematocrit 44.5 % 35.0-45.0 MCV 86.3 FL 80.0-100.0 MCH 29.4 pg 27.0-33.0 MCHC 34.1 g/dL 32.0-36.0 RDW 13.0 % 11.0-15.0 Platelet Count 190 thous/L 140-400 Neutrophils,Absolute 3890 cells/L 4822-6350 Lymphocytes,Absolute 2250 cells/L 850-3900 Monocytes,Absolute 410 cells/L 200-950 Eosinophils,Absolute 200 cells/L 15-500 Basophils,Absolute 20 cells/L 0-200 Total Neutrophils,% 57 % Not Established Total Lymphocytes,% 33 % Not Established Monocytes,% 6 % Not Established Eosinophils,% 3 % Not Established Basophils,% 0 % Not Established [facility] 12/01/2013 [facility] Vitamin 19 ng/mL Low 30-100 25-Hydroxy D [address] D,25-Oh,Total (D2,D3) LC/MS [place], [place] [id number] [phone] Vitamin D,25-Oh,D3 19 ng/mL Vitamin D,25-Oh,D2 <4 ng/mL 43 BMP W/O Egfr 06/11/2013 [facility] Sodium 142 mmol/L 135-[address] [place] [address] [phone] Potassium 4.1 mmol/L 3.5-5.3 Chloride 105 mmol/L 98-110 Carbon Dioxide 27 mmol/L 19-30 Calcium 9.7 mg/dL 8.6-10.4 Glucose 109 mg/dL High 65-99 44 Urea Nitrogen 15 mg/dL 7-25 Creatinine 0.83 mg/dL 0.60-0.93 45 BUN/Creatinine Ratio 17.8 6-22 Laboratory test 03/10/2013 [facility] Glucose 93 mg/dL 65-99 [address] [place] [address] [phone] Laboratory test 12/02/2012 [facility] LDL 119 mg/dL <130 [address] [place] [address] [phone] BMP W/O Egfr 12/02/2012 [facility] Sodium 143 mmol/L 135-[address] [place] [address] [phone] Potassium 4.0 mmol/L 3.5-5.3 Chloride 105 mmol/L 98-110 Carbon Dioxide 29 mmol/L 19-30 Calcium 9.4 mg/dL 8.6-10.4 Glucose 107 mg/dL High 65-99 48 Urea Nitrogen 20 mg/dL 7-25 Creatinine 0.81 mg/dL 0.60-0.93 49 BUN/Creatinine Ratio 24.4 High 6-22 Laboratory 06/03/2012 [facility] LDL 142 High <130 50 test finding [address] Cholesterol,Direct mg/[place] [address] [phone] Basic 06/03/2012 [facility] Sodium 144 135-[address] mmol/[place] [address] [phone] Potassium 4.5 mmol/L 3.5-5.3 Chloride 108 mmol/L 98-110 Carbon Dioxide 28 mmol/L 21-33 Calcium 9.5 mg/dL 8.6-10.4 Glucose 96 mg/dL 65-99 51 Urea Nitrogen 14 mg/dL 7-25 Creatinine 0.83 mg/dL 0.60-0.93 52 BUN/Creatinine Ratio 17.3 6-22 Egfr Non-Afr. Citizen Of [place] 70 ML/MIN/1.73M2 > Or=60 Egfr 82 ML/MIN/1.73M2 > Or=60 Laboratory 07/26/2011 [facility] LDL Cholesterol,Direct 90 mg/dL <130 53 test finding [address] [place] [address] [phone] Basic 07/26/2011 [facility] Sodium 143 135-[address] mmol/[place] [address] [phone] Potassium 4.2 mmol/L 3.5-5.3 Chloride 107 mmol/L 98-110 Carbon Dioxide 28 mmol/L 21-33 Calcium 9.1 mg/dL 8.6-10.2 Glucose 102 mg/dL High 65-99 54 Urea Nitrogen 17 mg/dL 7-25 Creatinine 0.85 mg/dL 0.63-1.22 BUN/Creatinine Ratio 19.6 6-22 Egfr Non-Afr. Citizen Of [place] 69 ML/MIN/1.73M2 > Or=60 Egfr 80 ML/MIN/1.73M2 > Or=60 Basic Metabolic Panel 05/26/2011 [facility] Sodium 140 mmol/L 135-152 52 [address] [place] [address] [phone] Potassium 4.1 mmol/L 3.5-5.0 Chloride 105 mmol/L 101-111 Co2 (Carbon Dioxide) 29.0 mmol/L 22-32 Anion Gap 6.0 mmol/L 2-11 56 Glucose 106 mg/dL High 70-100 BUN 11 mg/dL 6-24 Creatinine 0.9 mg/dL 0.50-1.40 One Over Creatinine 1.11 BUN/Creatinine Ratio 12.2 8-20 Calcium 9.7 mg/dL 8.1-9.9 eGFR Non- 61.7 > 60 eGFR 79.4 > 60 57 Type And Screen 05/26/2011 [facility] Patient Blood Type A POSITIVE [address] [place] [address] [phone] Antibody Screen NEGATIVE Specimen Discard Date 06/09/11 58 Laboratory test 05/26/2011 [facility] PTT (Aptt) 26.0 25.15- 38.[address] [place] [address] [phone] Protime 05/26/2011 [facility] Inr 0.98 0.82-1.[address] [place] [address] [phone] Protime 11.6 SEC 10.2-14.8 60 CBC Auto Diff 05/26/2011 [facility] White Blood Count 5.8 CUMM 4.8-10.8 [address] [facility] [place] [address] [phone] Red Cell Count 5.03 CUMM 4.2-5.4 Hemoglobin 15.8 g/dL 12.0-16.0 Hematocrit 44 % 35-47 Mean Corpuscular Volume 87 um3 79-97 Mean Corpuscular Hemoglob 31 pg 27-31 Mean Corpuscular HGB Cone 36 g/dL 32-36 Redcell Distribution WDTH 12 % 10.5-15 Platelet Count 192 CUMM 150-450 Mean Platelet Volume 7.5 um3 7.4-10.4 Gran % 63.9 % 38-83 Lymph % 26.2 % 25-47 Mononuclear % 8.0 % 1-9 Eosinophil % 1.4 % 0-6 Basophil % 0.5 % 0-2 Abs Lymphs 1.5 1.0-4.8 Abs Mononuclear 0.5 0-0.8 Absolute Neutrophil Count 3.7 1.5-7.7 Abs Eosinophils 0.1 0-0.6 Abs Basophils 0 0-0.2 61 Basic Metabolic Panel 04/26/2011 [facility] Sodium 144 mmol/L 135-[address] [place] [address] [phone] Potassium 4.8 mmol/L 3.5-5.3 Chloride 109 mmol/L 98-110 Carbon Dioxide 28 mmol/L 21-33 Calcium 9.4 mg/dL 8.6-10.2 Glucose 106 mg/dL High 65-99 62 Urea Nitrogen 16 mg/dL 7-25 Creatinine 0.83 mg/dL 0.63-1.22 BUN/Creatinine Ratio 19.3 6-22 Egfr Non-Afr. Citizen Of [place] 71 ML/MIN/1.73M2 > Or=60 Egfr 82 ML/MIN/1.73M2 > Or=60 Laboratory test finding 04/21/2011 [facility] CK 71 U /L 26-[address] [place] [address] [phone] Troponin-I < 0.02 ng/mL 0.00-0.50 64 Comprehensive 04/21/2011 [facility] Glucose 103 mg/ dL 76-115 Metabolic Panel [address] [place] [address] [phone] BUN 15 mg/dL 5-23 Creatinine 0.9 mg/dL 0.5-1.4 Glom Filtration Rate, Estimate >60 mL/min >60 If >60 mL/min >60 65 BUN/Creat 16.6 ratio Sodium 143 mmol/L 136-145 Potassium 3.8 mmol/L 3.5-5.1 Chloride 107 mmol/L 98-107 Carbon Dioxide 25 mEq/L 18-29 Anion Gap 15 mEq/L 8-16 Calcium 9.2 mg/dL 8.5-10.1 Total Protein 6.6 g/dL 6.3-8.0 Albumin 3.7 g/dL 3.5-5.0 Globulin 2.9 g/dL 1.9-4.3 Alb/Glob 1.3 ratio Bilirubin,Total 0.8 mg/dL 0.2-1.2 Sgot/Ast 30 U/L 16-40 SGPT/Alt 69 U/L High 30-65 Alkaline Phosphatase 59 U/L 50-136 LDL Cholesterol 04/21/2011 [facility] Cholesterol 164 mg/dL 120-[address] [place] [address] [phone] Triglycerides 160 mg/dL 16-231 HDL Cholesterol 28 mg/dL Low 29-83 LDL-Cholesterol 104 mg/dL 62-185 CBC W/Automated 04/21/2011 [facility] White Blood 8.7 K/uL 3.1-10.[address] [place] [address] [phone] Red Blood Count 5.05 M/uL 3.90-5.40 Hemoglobin 15.1 gm/dL 11.6-15.8 Hematocrit 43.2 % 36.0-46.1 Mean Cell Volume 85.5 fl 80.9-99.0 Mean Corpuscular HGB 29.9 pg 25.9-32.7 Mean Corpuscular HGB Conc 35.0 g/dL High 30.8-34.3 Platelet Count 209 K/uL 155-360 Red Cell Distri Width %CV 12.5 % 11.7-14.4 Mean Platelet Volume 9.6 fL 8.9-12.4 Neut% 64.2 % 40.4-72.8 Lymph % 24.3 % 17.0-46.1 Caldwell % 10.2 % 4.3-13.2 Eo% 1.0 % 0.0-6.6 Bas% 0.3 % 0.0-1.1 Neut# 5.61 K/uL 1.0-7.0 Lymph # 2.12 K/uL 0.8-3.4 Caldwell # 0.89 K/uL 0.3-0.9 Eos # 0.09 K/uL 0.0-0.5 Baso # 0.03 K/uL 0.0-0.1 Red Cell Distri Width SD 37.6 fl 3-47 Laboratory test 04/21/2011 [facility] Sedimentation Rate 6 mm/hr 0-30 [address] [place] [address] [phone] Laboratory test 04/21/2011 [facility] CK 73 U/L 26 -190 [address] [place] [address] [phone] Troponin-I < 0.02 ng/mL 0.00-0.50 68 Protime 04/21/2011 [facility] Protime 13.7 seconds 12.2-15.[address] [place] [address] [phone] Inr 1.0 0.9-1.1 69 Laboratory test 04/21/2011 [facility] Act Partial 27.4 seconds 23.4-37.4 [address] [place] [place] [address] [phone] Basic Metabolic 04/20/2011 [facility] Glucose 103 mg/ dL 76-[address] [place] [address] [phone] BUN 13 mg/dL 5-23 Creatinine 0.7 mg/dL 0.5-1.4 Glom Filtration Rate, Estimate >60 mL/min >60 If >60 mL/min >60 71 BUN/Creat 18.5 ratio Sodium 142 mmol/L 136-145 Potassium 3.8 mmol/L 3.5-5.1 Chloride 105 mmol/L 98-107 Carbon Dioxide 27 mEq/L 18-29 Anion Gap 14 mEq/L 8-16 Calcium 10.2 mg/dL High 8.5-10.1 Laboratory test finding 04/20/2011 [facility] CK 91 U /L 26-[address] [place] [address] [phone] Troponin-I < 0.02 ng/mL 0.00-0.50 73 CBC W/Automated 04/20/2011 [facility] White Blood 6.5 K/uL 3.1-10.[address] [place] [address] [phone] Red Blood Count 5.35 M/uL 3.90-5.40 Hemoglobin 16.0 gm/dL High 11.6-15.8 Hematocrit 44.9 % 36.0-46.1 Mean Cell Volume 83.9 fl 80.9-99.0 Mean Corpuscular HGB 29.9 pg 25.9-32.7 Mean Corpuscular HGB Conc 35.6 g/dL High 30.8-34.3 Platelet Count 204 K/uL 155-360 Red Cell Distri Width %CV 12.3 % 11.7-14.4 Mean Platelet Volume 9.5 fL 8.9-12.4 Neut% 55.2 % 40.4-72.8 Lymph % 32.5 % 17.0-46.1 Caldwell % 10.9 % 4.3-13.2 Eo% 1.1 % 0.0-6.6 Bas% 0.3 % 0.0-1.1 Neut# 3.58 K/uL 1.0-7.0 Lymph # 2.11 K/uL 0.8-3.4 Caldwell # 0.71 K/uL 0.3-0.9 Eos # 0.07 K/uL 0.0-0.5 Baso # 0.02 K/uL 0.0-0.1 Red Cell Distri Width SD 36.9 fl 3-47 Basic Metabolic Panel 11/07/2010 [facility] Sodium 143 mmol/L 135-[address] [place] [address] [phone] Potassium 4.2 mmol/L 3.5-5.3 Chloride 105 mmol/L 98-110 Carbon Dioxide 28 mmol/L 21-33 Calcium 9.2 mg/dL 8.6-10.2 Glucose 101 mg/dL High 65-99 74 Urea Nitrogen 12 mg/dL 7-25 Creatinine 0.80 mg/dL 0.63-1.22 BUN/Creatinine Ratio 15.3 6-22 Egfr Non-Afr. Citizen Of [place] 75 ML/MIN/1.73M2 > Or=60 Egfr 87 ML/MIN/1.73M2 > Or=60 CBC W/ Diff & PLT 09/08/2010 [facility] WBC 6.0 thous/L 3.8-10.8 [address] [place], [place] [id number] [phone] RBC 5.12 mill/L High 3.80-5.10 Hemoglobin 15.7 g/dL High 11.7-15.5 Hematocrit 46.0 % High 35.0-45.0 MCV 89.9 FL 80.0-100.0 MCH 30.6 pg 27.0-33.0 MCHC 34.0 g/dL 32.0-36.0 RDW 12.4 % 11.0-15.0 Platelet Count 198 thous/L 140-400 Platelet Sufficiency NORMAL Normal Neutrophils,Absolute 3770 cells/L 6674-3530 Bands,Absolute DNR cells/L 0-750 Metamyelocytes,Absolute DNR cells/L 0 Myelocytes,Absolute DNR cells/L 0 Promyelocytes,Absolute DNR cells/L 0 Lymphocytes,Absolute 1700 cells/L 850-3900 Monocytes,Absolute 410 cells/L 200-950 Eosinophils,Absolute 80 cells/L 15-500 Basophils,Absolute 20 cells/L 0-200 Blast Cells,Absolute DNR cells/L 0 Nucleated RBC,Absolute DNR cells/L 0 Total Neutrophils,% 64 % 38-80 Bands,% DNR % 0-10 Metamyelocytes,% DNR % Myelocytes,% DNR % Promyelocytes,% DNR % Total Lymphocytes,% 28 % 15-49 Monocytes,% 7 % 0-13 Eosinophils,% 1 % 0-8 Basophils,% 0 % 0-2 Blasts,% DNR % Nucleated RBC DNR /100WBC 0 RBC Morphology NORMAL Anisocytosis DNR Poikilocytosis DNR Microcytosis DNR Macrocytosis DNR Polychromasia DNR Hypochromasia DNR Target Cells DNR Basophilic Stippling DNR Comment DNR Basic Metabolic Panel 09/08/2010 [facility] Sodium 142 mmol/L 135-[address] [place] [address] [phone] Potassium 4.1 mmol/L 3.5-5.3 Chloride 106 mmol/L 98-110 Carbon Dioxide 27 mmol/L 21-33 Calcium 9.7 mg/dL 8.6-10.2 Glucose 86 mg/dL 65-99 75 Urea Nitrogen 16 mg/dL 7-25 Creatinine 0.70 mg/dL 0.63-1.22 BUN/Creatinine Ratio 23.0 High 6-22 Egfr Non-Afr. Citizen Of [place] >60 ML/MIN/1.73M2 > Or=60 Egfr >60 ML/MIN/1.73M2 > Or=60 Basic Metabolic Panel 08/03/2010 [facility] Sodium 143 mmol/L 135-[address] [place] [address] [phone] Potassium 4.2 mmol/L 3.5-5.3 Chloride 107 mmol/L 98-110 Carbon Dioxide 27 mmol/L 21-33 Calcium 9.2 mg/dL 8.6-10.2 Glucose 103 mg/dL High 65-99 76 Urea Nitrogen 15 mg/dL 7-25 Creatinine 0.83 mg/dL 0.63-1.22 BUN/Creatinine Ratio 18.6 6-22 Egfr Non-Afr. Citizen Of [place] >60 ML/MIN/1.73M2 > Or=60 Egfr >60 ML/MIN/1.73M2 > Or=60 Lipid Panel 01/27/2010 [facility] Cholesterol 197 mg/dL 125-[address] [place] [address] [phone] HDL Cholesterol 32 mg/dL Low > Or=46 Triglycerides 279 mg/dL High <150 Cholesterol/HDL Ratio 6.2 High < Or=5.0 LDL Chol,Calculated 109 mg/dL <130 78 Basic Metabolic Panel 01/27/2010 [facility] Sodium 143 mmol/L 135-[address] [place] [address] [phone] Potassium 4.2 mmol/L 3.5-5.3 Chloride 105 mmol/L 98-110 Carbon Dioxide 30 mmol/L 21-33 Calcium 9.6 mg/dL 8.6-10.2 Glucose 97 mg/dL 65-99 79 Urea Nitrogen 14 mg/dL 7-25 Creatinine 0.78 mg/dL 0.60-1.18 BUN/Creatinine Ratio 17.8 6-22 Egfr Non-Afr. Citizen Of [place] >60 ML/MIN/1.73M2 > Or=60 Egfr >60 ML/MIN/1.73M2 > Or=60 Basic Metabolic Panel 07/20/2009 [facility] Sodium 142 mmol/L 135-[address] [place] [address] [phone] Potassium 4.3 mmol/L 3.5-5.3 Chloride 105 mmol/L 98-110 Carbon Dioxide 27 mmol/L 21-33 Calcium 9.0 mg/dL 8.6-10.2 Glucose 93 mg/dL 65-99 80 Urea Nitrogen 15 mg/dL 7-25 Creatinine 0.75 mg/dL 0.60-1.18 BUN/Creatinine Ratio 20.0 6- Egfr Non-Afr. Citizen Of [place] >60 ML/MIN/1.73M2 > Or=60 Egfr >60 ML/MIN/1.73M2 > Or=60 Lipid Panel 07/20/2009 [facility] Cholesterol 187 mg/dL 125-200 [address] [place] [address] [phone] HDL Cholesterol 28 mg/dL Low > Or=46 Triglycerides 289 mg/dL High <150 Cholesterol/HDL Ratio 6.7 High < Or=5.0 LDL Chol,Calculated 101 mg/dL <130 81 CBC W/ Diff & PLT 07/20/2009 [facility] WBC 6.6 thous/L 3.8-10.8 [address] [place] [address] [phone] RBC 5.17 mill/L High 3.80-5.10 Hemoglobin 16.0 g/dL High 11.7-15.5 Hematocrit 45.0 % 35.0-45.0 MCV 87.0 FL 80.0-100.0 MCH 30.9 pg 27.0-33.0 MCHC 35.5 g/dL 32.0-36.0 RDW 12.5 % 11.0-15.0 Platelet Count 199 thous/L 140-400 Platelet Sufficiency NORMAL Normal Neutrophils,Absolute 3720 cells/L 0376-1184 Bands,Absolute DNR cells/L 0-750 Metamyelocytes,Absolute DNR cells/L 0 Myelocytes,Absolute DNR cells/L 0 Promyelocytes,Absolute DNR cells/L 0 Lymphocytes,Absolute 2220 cells/L 850-3900 Monocytes,Absolute 430 cells/L 200-950 Eosinophils,Absolute 160 cells/L 15-500 Basophils,Absolute 20 cells/L 0-200 Blast Cells,Absolute DNR cells/L 0 Nucleated RBC,Absolute DNR cells/L 0 Total Neutrophils,% 57 % 38-80 Bands,% DNR % 0-10 Metamyelocytes,% DNR % Myelocytes,% DNR % Promyelocytes,% DNR % Total Lymphocytes,% 34 % 15-49 Monocytes,% 7 % 0-13 Eosinophils,% 2 % 0-8 Basophils,% 0 % 0-2 Blasts,% DNR % Nucleated RBC DNR /100WBC 0 RBC Morphology NORMAL Anisocytosis DNR Poikilocytosis DNR Microcytosis DNR Macrocytosis DNR Polychromasia DNR Hypochromasia DNR Target Cells DNR Basophilic Stippling DNR Comment DNR Culture,Urine,Voided 01/28/2009 [facility] URINE-VOIDED [address] [place] [address] [phone] Preliminary Report DNR Interim Report DNR Final Report (SEE NOTE) 82 Organism #1 DNR Organism #2 DNR Organism #3 DNR Organism #4 [id number] DNR Lipid Panel 01/14/2009 [facility] Cholesterol 188 mg/dL 125-200 [address] [place], [place] [id number] [phone] HDL Cholesterol 32 mg/dL Low > Or=46 Cholesterol/HDL Ratio 5.9 High < Or=5.0 LDL Chol,Calculated 111 mg/dL <130 83 Triglycerides 223 mg/dL High <150 CBC W/ Diff & PLT 07/09/2008 [facility] WBC 6.1 thous/L 3.8-10.8 [address] [place] [address] [phone] RBC 5.08 mill/L 3.80-5.10 Hemoglobin 15.0 g/dL 11.7-15.5 Hematocrit 43.5 % 35.0-45.0 MCV 85.6 FL 80.0-100.0 MCH 29.4 pg 27.0-33.0 MCHC 34.4 g/dL 32.0-36.0 RDW 12.4 % 11.0-15.0 Platelet Count 199 thous/L 140-400 Platelet Sufficiency NORMAL Normal Neutrophils,Absolute 3310 cells/L 5914-8032 Bands,Absolute DNR cells/L 0-750 Metamyelocytes,Absolute DNR cells/L 0 Myelocytes,Absolute DNR cells/L 0 Promyelocytes,Absolute DNR cells/L 0 Lymphocytes,Absolute 2130 cells/L 850-3900 Monocytes,Absolute 460 cells/L 200-950 Eosinophils,Absolute 110 cells/L 15-500 Basophils,Absolute 40 cells/L 0-200 Blast Cells,Absolute DNR cells/L 0 Nucleated RBC,Absolute DNR cells/L 0 Total Neutrophils,% 54 % 38-80 Bands,% DNR % 0-10 Metamyelocytes,% DNR % Myelocytes,% DNR % Promyelocytes,% DNR % Total Lymphocytes,% 35 % 15-49 Monocytes,% 8 % 0-13 Eosinophils,% 2 % 0-8 Basophils,% 1 % 0-2 Blasts,% DNR % Nucleated RBC DNR /100WBC 0 RBC Morphology NORMAL Anisocytosis DNR Poikilocytosis DNR Microcytosis DNR Macrocytosis DNR Polychromasia DNR Hypochromasia DNR Target Cells DNR Basophilic Stippling DNR Comment DNR Basic Metabolic Panel 07/09/2008 [facility] Sodium 145 mmol/L 135-[address] [place], [place] [id number] [phone] Potassium 4.1 mmol/L 3.5-5.3 Chloride 107 mmol/L 98-110 Carbon Dioxide 29 mmol/L 21-33 Calcium 9.5 mg/dL 8.6-10.2 Glucose 99 mg/dL 65-99 84 Urea Nitrogen 15 mg/dL 7-25 Creatinine 0.80 mg/dL 0.50-1.20 BUN/Creatinine Ratio 18.8 6-22 Egfr Non-Afr. Citizen Of [place] >60 ML/MIN/1.73M2 > Or=60 Egfr >60 ML/MIN/1.73M2 > Or=60 Lipid Panel 07/09/2008 [facility] Cholesterol 181 mg/dL 125-[address] [place] [address] [phone] HDL Cholesterol 31 mg/dL Low > Or=46 Cholesterol/HDL Ratio 5.8 High < Or=5.0 LDL Chol,Calculated 91 mg/dL <130 85 Triglycerides 294 mg/dL High <150 Laboratory test 07/09/2008 [facility] TSH,3RD 4.04 mU/L 0.40-4.[address] [place] [address] [phone] T4,Free 1.3 ng/dL 0.8-1.8 Laboratory test finding 03/13/2008 [facility] CK 63 U /L 26-[address] [place] [address] [phone] Troponin-I 0.0 NG/ML 0.0-0.6 87 Laboratory test 03/13/2008 [facility] Thyroid Stim 3.77 0.49-4.67 [address] Hormone uIU/[place] [address] [phone] Basic Metabolic 03/13/2008 [facility] Glucose 119 mg/ dL High 76-[address] [place] [address] [phone] BUN 11 mg/dL 5-23 Estimated GFR (SEE NOTE) Creatinine 1.0 mg/dL 0.5-1.4 BUN/Creat 11.0 Sodium 143 mEq/L 136-145 Potassium 3.3 mEq/L Low 3.5-5.1 Chloride 105 mEq/L 98-107 Carbon Dioxide 32 mEq/L 21-32 Anion Gap 9 mEq/L 8-16 Calcium 9.1 mg/dL 8.5-10.1 Laboratory test 03/13/2008 [facility] Magnesium 1.9 mg/dL 1.7-2.[address] [place] [address] [phone] LDL Cholesterol 03/13/2008 [facility] Cholesterol 161 mg/dL 120-[address] [place] [address] [phone] Triglycerides 230 mg/dL High 0-210 HDL Cholesterol 29 mg/dL Low 32-96 LDL-Cholesterol 86 mg/dL 62-185 Laboratory test finding 03/13/2008 [facility] CK 68 U /L 26-[address] [place] [address] [phone] Troponin-I 0.0 NG/ML 0.0-0.6 89 CBC 03/13/2008 [facility] White Blood Count 8.8 K/uL 3.1-10.[address] [place] [address] [phone] Red Blood Count 4.94 M/uL 3.90-5.40 Hemoglobin 14.5 gm/dL 11.6-15.8 Hematocrit 42.2 % 36.0-46.1 Mean Cell Volume 85.4 fl 80.9-99.0 Mean Corpuscular HGB 29.4 pg 25.9-32.7 Mean Corpuscular HGB Conc 34.4 g/dL High 30.8-34.3 Platelet Count 210 K/uL 155-360 Red Cell Distri Width %CV 12.3 % 11.7-14.4 Mean Platelet Volume 9.4 fL 8.9-12.4 Protime 03/13/2008 [facility] Protime 13.2 seconds 12.1-14.6 [address] [place] [address] [phone] Inr 1.0 0.9-1.1 90 Laboratory test 03/13/2008 [facility] Act Partial 27.9 seconds 22.0-36.[address] [place] [address] [phone] Basic Metabolic 01/16/2008 [facility] Sodium 142 mmol/L 135-[address] [place] [address] [phone] Potassium 4.4 mmol/L 3.5-5.3 Chloride 105 mmol/L 98-110 Carbon Dioxide 29 mmol/L 21-33 Calcium 9.6 mg/dL 8.6-10.2 Glucose 101 mg/dL High 65-99 92 Urea Nitrogen 17 mg/dL 7-25 Creatinine 0.83 mg/dL 0.50-1.20 BUN/Creatinine Ratio 20.0 6-22 Egfr Non-Afr. Citizen Of The [place] >60 ML/MIN/1. > Or=60 Egfr >60 ML/MIN/1. > Or=60 CBC W/ Diff & PLT 01/16/2008 [facility] WBC 7.1 thous/L 3.8-10.[address] [place] [address] [phone] RBC 5.33 mill/L High 3.80-5.10 Hemoglobin 16.0 g/dL High 11.7-15.5 Hematocrit 46.3 % High 35.0-45.0 MCV 86.9 FL 80.0-100.0 MCH 30.1 pg 27.0-33.0 MCHC 34.6 g/dL 32.0-36.0 RDW 12.6 % 11.0-15.0 Platelet Count 221 thous/L 140-400 Platelet Sufficiency NORMAL Normal Neutrophils,Absolute 3880 cells/L 3340-8252 Bands,Absolute DNR cells/L 0-750 Metamyelocytes,Absolute DNR cells/L 0 Myelocytes,Absolute DNR cells/L 0 Promyelocytes,Absolute DNR cells/L 0 Lymphocytes,Absolute 2540 cells/L 850-3900 Monocytes,Absolute 500 cells/L 200-950 Eosinophils,Absolute 140 cells/L 15-500 Basophils,Absolute 10 cells/L 0-200 Blast Cells,Absolute DNR cells/L 0 Nucleated RBC,Absolute DNR cells/L 0 Total Neutrophils,% 55 % 38-80 Bands,% DNR % 0-10 Metamyelocytes,% DNR % Myelocytes,% DNR % Promyelocytes,% DNR % Total Lymphocytes,% 36 % 15-49 Monocytes,% 7 % 0-13 Eosinophils,% 2 % 0-8 Basophils,% 0 % 0-2 Blasts,% DNR % Nucleated RBC DNR /100WBC 0 RBC Morphology NORMAL Anisocytosis DNR Poikilocytosis DNR Microcytosis DNR Macrocytosis DNR Polychromasia DNR Hypochromasia DNR Target Cells DNR Basophilic Stippling DNR Comment DNR Lipid Panel 01/16/2008 [facility] Cholesterol 204 mg/dL High 125-[address] [place] [address] [phone] HDL Cholesterol 34 mg/dL Low > Or=40 93 Cholesterol/HDL Ratio 6.0 High < Or=5.0 LDL Chol,Calculated 103 mg/dL <130 94 Triglycerides 334 mg/dL High <150 Basic Metabolic Panel 07/18/2007 [facility] Sodium 143 mmol/L 135-146 6 [place] [address] [phone] Potassium 4.1 mmol/L 3.5-5.3 Chloride 106 mmol/L 98-110 Carbon Dioxide 27 mmol/L 21-33 Calcium 9.4 mg/dL 8.6-10.2 Glucose 102 mg/dL High 65-99 95 Urea Nitrogen 18 mg/dL 7-25 Creatinine 0.89 mg/dL 0.50-1.20 BUN/Creatinine Ratio 20.1 6-22 Egfr Non-Afr. Citizen Of [place] >60 ML/MIN/1.7 > Or=60 Egfr >60 ML/MIN/1.7 > Or=60 CBC W/ Diff & PLT 07/18/2007 [facility] WBC 5.8 thous/L 3.8-10.8 6 [place] [address] [phone] RBC 5.25 mill/L High 3.80-5.10 Hemoglobin 16.0 g/dL High 11.7-15.5 Hematocrit 45.8 % High 35.0-45.0 MCV 87.3 FL 80.0-100.0 MCH 30.5 pg 27.0-33.0 MCHC 34.9 g/dL 32.0-36.0 RDW 12.2 % 11.0-15.0 Platelet Count 202 thous/L 140-400 Platelet Sufficiency NORMAL Normal Neutrophils,Absolute 3260 cells/L 4238-5935 Bands,Absolute DNR cells/L 0-750 Metamyelocytes,Absolute DNR cells/L 0 Myelocytes,Absolute DNR cells/L 0 Promyelocytes,Absolute DNR cells/L 0 Lymphocytes,Absolute 2080 cells/L 850-3900 Monocytes,Absolute 300 cells/L 200-950 Eosinophils,Absolute 110 cells/L 15-500 Basophils,Absolute 10 cells/L 0-200 Blast Cells,Absolute DNR cells/L 0 Nucleated RBC,Absolute DNR cells/L 0 Total Neutrophils,% 57 % 38-80 Bands,% DNR % 0-10 Metamyelocytes,% DNR % Myelocytes,% DNR % Promyelocytes,% DNR % Total Lymphocytes,% 36 % 15-49 Monocytes,% 5 % 0-13 Eosinophils,% 2 % 0-8 Basophils,% 0 % 0-2 Blasts,% DNR % Nucleated RBC DNR /100WBC 0 RBC Morphology NORMAL Anisocytosis DNR Poikilocytosis DNR Microcytosis DNR Macrocytosis DNR Polychromasia DNR Hypochromasia DNR Target Cells DNR Basophilic Stippling DNR Comment DNR Lipid Panel 07/18/2007 [facility] Cholesterol 184 mg/dL 125-[address] [place], [place] [address] [phone] HDL Cholesterol 29 mg/dL Low > Or=40 96 Cholesterol/HDL Ratio 6.3 High < Or=5.0 LDL Chol,Calculated 89 mg/dL <130 97 Triglycerides 329 mg/dL High <150 Laboratory test 07/18/2007 [facility] TSH,3RD 2.64 mU/L 0.40-4.50 [address] [place] [address] [phone] T4,Free 1.3 ng/dL 0.8-1.8 Basic Metabolic Panel 01/10/2007 [facility] Sodium 142 mmol/L 135-[address] [place] [address] [phone] Potassium 4.0 mmol/L 3.5-5.3 Chloride 105 mmol/L 98-110 Carbon Dioxide 29 mmol/L 21-33 Calcium 9.7 mg/dL 8.6-10.2 Glucose 105 mg/dL High 65-99 99 Urea Nitrogen 13 mg/dL 7-25 Creatinine 0.9 mg/dL 0.5-1.2 BUN/Creatinine Ratio 14.6 6-22 GFR Estimated >60 ML/MIN/1.7 >59 100 Lipid Panel 01/10/2007 [facility] Cholesterol 197 mg/dL 125-[address] [place] [address] [phone] HDL Cholesterol 35 mg/dL Low > Or=40 101 Cholesterol/HDL Ratio 5.6 High < Or=5.0 LDL Chol,Calculated 114 mg/dL <130 102 Triglycerides 239 mg/dL High <150 Lipid Panel 07/23/2006 [facility] Cholesterol 197 mg/dL <200 6 [place] [address] [phone] HDL Cholesterol 33 mg/dL Low >40 103 Cholesterol/HDL Ratio 6.0 High <4.4 LDL Chol,Calculated 93 mg/dL <130 104 Triglycerides 355 mg/dL High <150 Comp Metabolic Panel 07/23/2006 [facility] Sodium 142 mmol/L 135-146 6 [place] [address] [phone] Potassium 4.8 mmol/L 3.5-5.3 Chloride 106 mmol/L 98-110 Carbon Dioxide 29 mmol/L 21-33 Calcium 9.6 mg/dL 8.5-10.4 Alkaline Phosphatase 73 U/L 20-125 Ast 25 U/L 3-35 Alt 40 U/L 3-40 Bilirubin,Total 0.9 mg/dL 0.2-1.3 Glucose 106 mg/dL High 65-99 105 Urea Nitrogen 14 mg/dL 7-30 Creatinine 0.9 mg/dL 0.5-1.2 BUN/Creatinine Ratio 15.2 6-25 Protein,Total 6.8 g/dL 6.0-8.3 Albumin 4.2 g/dL 3.2-4.6 Globulin,Calculated 2.6 g/dL 2.2-4.2 A/G Ratio 1.7 0.8-2.0 GFR Estimated >60 ML/MIN/1.7 >59 106 CBC W/ Diff & PLT 07/23/2006 [facility] WBC 6.3 thous/L 3.8-10.8 6 [place] [address] [phone] RBC 5.27 mill/L High 3.80-5.10 Hemoglobin 15.7 g/dL High 11.7-15.5 Hematocrit 44.8 % 35.0-45.0 MCV 85.0 FL 80.0-100.0 MCH 29.8 pg 27.0-33.0 MCHC 35.0 g/dL 32.0-36.0 RDW 12.4 % 11.0-15.0 Platelet Count 211 thous/L 140-400 Platelet Sufficiency NORMAL Normal Neutrophils,Absolute 3380 cells/L 4154-4513 Bands,Absolute DNR cells/L 0-750 Metamyelocytes,Absolute DNR cells/L 0 Myelocytes,Absolute DNR cells/L 0 Promyelocytes,Absolute DNR cells/L 0 Lymphocytes,Absolute 2230 cells/L 850-3900 Monocytes,Absolute 510 cells/L 200-950 Eosinophils,Absolute 160 cells/L 15-500 Basophils,Absolute 60 cells/L 0-200 Blast Cells,Absolute DNR cells/L 0 Nucleated RBC,Absolute DNR cells/L 0 Total Neutrophils,% 54 % 38-80 Bands,% DNR % 0-10 Metamyelocytes,% DNR % Myelocytes,% DNR % Promyelocytes,% DNR % Total Lymphocytes,% 35 % 15-49 Monocytes,% 8 % 0-13 Eosinophils,% 2 % 0-8 Basophils,% 1 % 0-2 Blasts,% DNR % Nucleated RBC DNR /100WBC 0 RBC Morphology NORMAL Anisocytosis DNR Poikilocytosis DNR Microcytosis DNR Macrocytosis DNR Polychromasia DNR Hypochromasia DNR Target Cells DNR Basophilic Stippling DNR Comment DNR Laboratory test finding 07/23/2006 [facility] TSH 2.06 mU/L 0.40-5.50 6 [place] [address] [phone] T4,Free 1.3 ng/dL 0.8-1.8 Lipid Panel 07/20/2005 [facility] Cholesterol 189 mg/dL <200 6 [place] [address] [phone] HDL Cholesterol 29 mg/dL Low >40 107 Cholesterol/HDL Ratio 6.5 High <4.4 LDL Chol,Calculated 106 mg/dL <130 108 Triglycerides 270 mg/dL High <150 Laboratory test finding 07/20/2005 [facility] TSH 1.67 mU/L 0.40-5.50 6 [place] [address] [phone] CBC W/ Diff & PLT 07/20/2005 [facility] WBC 5.2 thous/L 3.8-10.8 6 [place] [address] [phone] RBC 5.23 mill/L High 3.80-5.10 Hemoglobin 15.8 g/dL High 11.7-15.5 Hematocrit 44.8 % 35.0-45.0 MCV 85.6 FL 80.0-100.0 MCH 30.3 pg 27.0-33.0 MCHC 35.3 g/dL 32.0-36.0 RDW 12.1 % 11.0-15.0 Platelet Count 213 thous/L 140-400 Platelet Sufficiency NORMAL Neutrophils,Absolute 2790 cells/L 4715-6391 Bands,Absolute DNR cells/L 0-750 Metamyelocytes,Absolute DNR cells/L 0 Myelocytes,Absolute DNR cells/L 0 Promyelocytes,Absolute DNR cells/L 0 Lymphocytes,Absolute 1910 cells/L 850-3900 Monocytes,Absolute 350 cells/L 200-950 Eosinophils,Absolute 150 cells/L 15-500 Basophils,Absolute 10 cells/L 0-200 Blast Cells,Absolute DNR cells/L 0 Nucleated RBC,Absolute DNR cells/L 0 Total Neutrophils,% 53 % 38-80 Bands,% DNR % 0-10 Metamyelocytes,% DNR % Myelocytes,% DNR % Promyelocytes,% DNR % Total Lymphocytes,% 37 % 15-49 Monocytes,% 7 % 0-13 Eosinophils,% 3 % 0-8 Basophils,% 0 % 0-2 Blasts,% DNR % Nucleated RBC DNR /100WBC 0 RBC Morphology NORMAL Anisocytosis DNR Poikilocytosis DNR Microcytosis DNR Macrocytosis DNR Polychromasia DNR Hypochromasia DNR Target Cells DNR Basophilic Stippling DNR Comment DNR Basic Metabolic Panel 07/20/2005 [facility] Sodium 143 mmol/L 135-146 [address] [place] [address] [phone] Potassium 4.1 mmol/L 3.5-5.3 Chloride 107 mmol/L 98-110 Carbon Dioxide 24 mmol/L 21-33 Calcium 9.3 mg/dL 8.5-10.4 Glucose 100 mg/dL High 65-99 109 Urea Nitrogen 17 mg/dL 7-30 Creatinine 0.9 mg/dL 0.5-1.2 BUN/Creatinine Ratio 19.1 6-25 GFR Estimated >60 ML/MIN/1.7 >59 110 1 SEE RESULT BELOW Name: CAROLA CHAMPION : [address]: Eliud Teran MD Acct: [id number] Unit: [id number] AGE: 77 Location: ENDO Re01/15/18 SEX: F Status: REG REF SPEC: [id number] MARLEE: 01/15/18-1240 [facility] DR: Eliud Teran MD REQ: [id number] RECD: 01/15/18 STATUS: MOSES ANGLIN DR: Suri Villavicencio MD _ ORDERED: LEVEL 4/2, IMMUNO-FIRST/2 H. pylori immunohistochemical stains, with appropriately reacting controls, were performed on sections cut from specimen 1 and specimen 2 and are negative for Helicobacter organisms. Addendum Signed (signature on file) Carola Corcoran MD 09/06 1252 FINAL DIAGNOSIS 1. Stomach, greater curvature, biopsy: -- Body-type gastric mucosa with moderate chronic gastritis; see comment. 2. Stomach, antrum, biopsy: -- Antral-type gastric mucosa with chronic, focally active gastritis; see comment. COMMENT: H. pylori immunohistochemical stains are pending and the results will be reported in an addendum. CLINICAL HISTORY Screening/Surveillance for malignancy in asymptomatic patient; follow up gastric polyp POST-OPERATIVE DIAGNOSIS EGD: larynx ? not seen; esophagus ? normal, esophagogastric junction 38 cm, snug (? ring); stomach ? (2) 2-2.5 mm nodules ? removed x2; duodenum ? normal bulb, 2nd to 3rd; conclusion/plan: gastric polyps GROSS DESCRIPTION 1. The specimen is received in formalin labeled, Biopsy Gastric Greater Curvature, and consists of two sepulveda-pink irregular soft tissue fragments measuring 0.4 x 0.3 x 0.1 cm and 0.9 x 0.2 x 0.2 cm which are submitted entirely in one cassette. 2. The specimen is received in formalin labeled, Biopsy Gastric Antrum, and consists of CONTINUED ON NEXT PAGE DEPARTMENT OF PATHOLOGY, [address] [place] [address] James Barnes M.D. Director [facility] # [id number] RUN DATE: 01/18/18 [facility] LAB LIVE PAGE 2 Patient: CAROLA CHAMPION Ajay [id number] (Continued) GROSS DESCRIPTION (Continued) GROSS DESCRIPTION (Continued) two sepulveda-pink irregular soft tissue fragments averaging 0.4 x 0.3 x 0.2 cm which are submitted entirely in one cassette. Signed by and Reported on: Carola Corcoran MD 01/16/18 1249 END OF REPORT DEPARTMENT OF PATHOLOGY, [address] [place] [address] James Barnes M.D. Director [facility] # [id number] 2 Relative blood cell counts (%) should be compared with absolute cell counts (cells/mcL). Relative counts may not be clinically meaningful if the absolute count of one or more cell type is decreased. Reference ranges for relative cell counts derived from: A Manual of Laboratory and Diagnostics Tests, 9th Ed, [employer], 2015. Pediatric Reference Intervals, 7th Ed, [employer], 2011. 3 GLUCOSE REFERENCE RANGE BASED ON FASTING SPECIMEN. 4 The upper reference limit for Creatinine is approximately 13% higher for people identified as -Citizen Of The [place]. 5 LDL-C is now calculated using the Marvin-Nigel calculation, which is a validated novel method providing better accuracy than the Friedewald equation in the estimation of LDL-C. Marvin COLMENARES et al.CHAVO.2013;310(19):0011-9478 (http://education.[employer].com/faq/JPA166) Desirable range <100 mg/dL for patients with CHD or Diabetes and <70 mg/dL for Diabetic patients with known heart disease 6 For patients with diabetes plus 1 major ASCVD risk factor, treating to a non-HDL-C goal of <100 mg/dL (LDL-C of <70 mg/ dL) is considered a therapeutic option. 7 For someone without known diabetes, a hemoglobin A1C value between 5.7% and 6.4% is consistent with prediabetes and should be confirmed with a follow-up test. For someone with known diabetes, a value <7% indicates that their diabetes is well controlled. A1C targets should be individualized based on duration of diabetes, age, co-morbid conditions and other considerations. This assay result is consistent with an increased risk of diabetes. Currently, no consensus exists regarding use of hemoglobin A1C for diagnosis of diabetes in children. FOR DIAGNOSTIC PURPOSES: A1C VALUE(% OF TOTAL HEMOGLOBIN) INTERPRETATION < 5.7 CONSISTENT WITH THE ABSENCE OF DIABETES 5.7 - 6.4 CONSISTENT WITH INCREASED RISK OF DIABETES > OR=6.5 CONSISTENT WITH DIABETES FOR MONITORING PURPOSES (ADA GUIDELINNES): A1C VALUE(% OF TOTAL HEMOGLOBIN) INTERPRETATION < 6.5 ACHIEVES STRINGENT GLYCEMIC GOAL < 7.0 ACHIEVES GENERAL GLYCEMIC GOAL(NON- ADULTS) < 8.0 ACHIEVES LESS STRINGENT GLYCEMIC GOAL 8 SEE RESULT BELOW Name: CAROLA CHAMPION : [address]: Eliud Teran MD Acct: [id number] Unit: [id number] AGE: 77 Location: ENDO Re07/18/17 SEX: F Status: DEP REF SPEC: [id number] MARLEE: 07/18/[address]: Eliud Teran MD REQ: [id number] RECD: 07/18/17 STATUS: MOSES ANGLIN DR: Suri Villavicencio MD _ ORDERED: LEVEL 4/4 FINAL DIAGNOSIS 1. Colon, sigmoid, biopsy: -- Tubular adenoma. -- No high grade dysplasia or malignancy. 2. Colon, cecum, biopsy: -- Tubular adenoma. -- No high grade dysplasia or malignancy. 3. Colon, rectum at 7 cm, biopsy: -- Tubular adenoma. -- No high grade dysplasia or malignancy. 4. Colon, rectum at 4 cm, biopsy: -- Hyperplastic polyp. CLINICAL HISTORY Screening/Surveillance for malignancy in asymptomatic patient. First exam POST-OPERATIVE DIAGNOSIS Colonoscopy to cecum T lift helpful. Conclusions/Plan: 4 polyps; follow-up 5 years to be considered GROSS DESCRIPTION 1. The specimen is received in formalin labeled, Sigmoid Colon Polyp, and consists of a 0.4 x 0.2 x 0.2 cm sepulveda-pink polypoid soft tissue fragment which is submitted entirely in one cassette. 2. The specimen is received in formalin labeled, Cecal Polyp, and consists of two sepulveda-white polypoid soft tissue fragments measuring 0.4 x 0.3 x 0.2 cm and 0.5 x 0.3 x 0.2 cm CONTINUED ON NEXT PAGE * ML=Testing performed at Main Lab DEPARTMENT OF PATHOLOGY, [address] [place] [address] James Barnes M.D. Director [facility] # [id number] RUN DATE: 07/19/17 [facility] LAB LIVE PAGE 2 Patient: CAROLA CHAMPION [id number] (Continued) GROSS DESCRIPTION (Continued) GROSS DESCRIPTION (Continued) which are submitted entirely in one cassette. 3. The specimen is received in formalin labeled, Rectal Polyp at 7 cm, and consists of a 0.5 x 0.2 x 0.2 cm sepulveda-pink polypoid soft tissue fragment which is inked, bisected and submitted entirely in one cassette. 4. The specimen is received in formalin labeled, Rectal Polyp at 4 cm, and consists of a 0.5 x 0.3 x 0.3 cm sepulveda-pink polypoid soft tissue fragment which is inked, bisected and submitted entirely in one cassette. Signed (signature on file) Carola Corcoran MD 1134 END OF REPORT * ML=Testing performed at Main Lab DEPARTMENT OF PATHOLOGY, [address] [place] [address] James Barnes M.D. Director [facility] # [id number] 9 SEE RESULT BELOW Name: CAROLA CHAMPION : [address]: Eliud Teran MD Acct: [id number] Unit: [id number] AGE: 77 Location: ENDO Re05/22/17 SEX: F Status: DEP REF SPEC: [id number] MARLEE: 05/22/17 [facility] DR: Eliud Teran MD REQ: [id number] RECD: 05/22/17 STATUS: MOSES ANGLIN DR: Suri Villavicencio MD _ ORDERED: LEVEL 4/2 FINAL DIAGNOSIS 1. Stomach, antrum, biopsy: -- Hyperplastic polyp. 2. Stomach, body, biopsy: -- Fundic gland polyp. CLINICAL HISTORY Abdominal pain POST-OPERATIVE DIAGNOSIS Larynx - normal; esophagus - normal, esophagogastric 38-39; stomach - rough, polyp antrum ISHAN approximately 7 cm, body greater curvature 14 cm; duodenum normal. Conclusions/Plan: Gastric polyps, gastroesophageal reflux disease; pain, gallstones GROSS DESCRIPTION 1. The specimen is received in formalin labeled, Gastric Antrum Polyp, and consists of a 0.6 x 0.5 x 0.4 cm sepulveda-pink polypoid soft tissue fragment which is inked, bisected and submitted entirely in one cassette. 2. The specimen is received in formalin labeled, Gastric Body Polyp, and consists of two sepulveda-red polypoid soft tissue fragments measuring 0.3 x 0.2 x 0.1 cm and 1.3 x 0.7 x 0.5 cm. The larger fragment is inked, trisected and the specimen is entirely submitted in one cassette. Signed (signature on file) Carola Corcoran MD 12/04 1048 END OF REPORT * ML=Testing performed at Main Lab DEPARTMENT OF PATHOLOGY, [address] [place] [address] James Barnes M.D. Director [facility] # [id number] 10 GLUCOSE REFERENCE RANGE BASED ON FASTING SPECIMEN. 11 The upper reference limit for Creatinine is approximately 13% higher for people identified as -Citizen Of The [place]. 12 For someone without known diabetes, a hemoglobin A1C value between 5.7% and 6.4% is consistent with prediabetes and should be confirmed with a follow-up test. For someone with known diabetes, a value <7% indicates that their diabetes is well controlled. A1C targets should be individualized based on duration of diabetes, age, co-morbid conditions and other considerations. This assay result is consistent with an increased risk of diabetes. Currently, no consensus exists regarding use of hemoglobin A1C for diagnosis of diabetes in children. FOR DIAGNOSTIC PURPOSES: A1C VALUE(% OF TOTAL HEMOGLOBIN) INTERPRETATION < 5.7 CONSISTENT WITH THE ABSENCE OF DIABETES 5.7 - 6.4 CONSISTENT WITH INCREASED RISK OF DIABETES > OR=6.5 CONSISTENT WITH DIABETES FOR MONITORING PURPOSES (ADA GUIDELINNES): A1C VALUE(% OF TOTAL HEMOGLOBIN) INTERPRETATION < 6.5 ACHIEVES STRINGENT GLYCEMIC GOAL < 7.0 ACHIEVES GENERAL GLYCEMIC GOAL(NON- ADULTS) < 8.0 ACHIEVES LESS STRINGENT GLYCEMIC GOAL 13 REFERENCE RANGES BELOW ARE APPLICABLE TO FEMALES FIRST TRIMESTER - 0.26 - 2.66 mIU/L SECOND TRIMESTER - 0.55 - 2.73 mIU/L THIRD TRIMESTER - 0.43 - 2.91 mIU/L 14 UPPER ABD PAIN 15 URINE, CLEAN CATCH 16 Note: Persistent reduction for 3 months or more in an eGFR <60 mL/min/1.73 m2 defines CKD. Patients with eGFR values >/=60 mL/min/1.73 m2 may also have CKD if evidence of persistent proteinuria is present. The original MDRD equation for estimated GFR is not valid for patients less than 18 years of age. Additional information may be found at www.kdoqi.org. 17 0.0 - 0.045 ng/mL: Normal 0.046 - 0.5 ng/mL: Suggestive 0.6 - 1.5 ng/mL: Consistent 18 FASTING 19 Relative blood cell counts (%) should be compared with absolute cell counts (cells/mcL). Relative counts may not be clinically meaningful if the absolute count of one or more cell type is decreased. Reference ranges for relative cell counts derived from: A Manual of Laboratory and Diagnostics Tests, 9th Ed, [employer], 2015. Pediatric Reference Intervals, 7th Ed, [employer], 2011. 20 GLUCOSE REFERENCE RANGE BASED ON FASTING SPECIMEN. 21 The upper reference limit for Creatinine is approximately 13% higher for people identified as -Citizen Of [place]. 22 Relative blood cell counts (%) should be compared with absolute cell counts (cells/mcL). Relative counts may not be clinically meaningful if the absolute count of one or more cell type is decreased. Reference ranges for relative cell counts derived from: A Manual of Laboratory and Diagnostics Tests, 9th Ed, [employer], 2015. Pediatric Reference Intervals, 7th Ed, [employer], 2011. 23 GLUCOSE REFERENCE RANGE BASED ON FASTING SPECIMEN. 24 The upper reference limit for Creatinine is approximately 13% higher for people identified as -Citizen Of [place]. 25 GLUCOSE REFERENCE RANGE BASED ON FASTING SPECIMEN. 26 The upper reference limit for Creatinine is approximately 13% higher for people identified as -Citizen Of [place]. 27 GLUCOSE REFERENCE RANGE BASED ON FASTING SPECIMEN. 28 The upper reference limit for Creatinine is approximately 13% higher for people identified as -Citizen Of [place]. 29 LDL-CHOLESTEROL RISK CATEGORY* GOAL VERY HIGH (E.G. DIABETES + CVD) <70 MG/DL HIGH (DIABETICS; CHD RISK EQUIVALENTS) <100 MG/DL MODERATELY HIGH (MULTIPLE(2+) RISK FACTORS) <130 MG/DL 0 TO 1 RISK FACTORS <160 MG/DL * NCEP REPORT. CIRCULATION 2004; 110: 227-239 30 GLUCOSE REFERENCE RANGE BASED ON FASTING SPECIMEN. 31 The upper reference limit for Creatinine is approximately 13% higher for people identified as -Citizen Of [place]. 32 LDL-CHOLESTEROL RISK CATEGORY* GOAL VERY HIGH (E.G. DIABETES + CVD) <70 MG/DL HIGH (DIABETICS; CHD RISK EQUIVALENTS) <100 MG/DL MODERATELY HIGH (MULTIPLE(2+) RISK FACTORS) <130 MG/DL 0 TO 1 RISK FACTORS <160 MG/DL * NCEP REPORT. CIRCULATION 2004; 110: 227-239 33 Target for non-HDL cholesterol is 30 mg/dL higher than LDL cholesterol target. 34 Relative blood cell counts (%) should be compared with absolute cell counts (cells/mcL). Relative counts may not be clinically meaningful if the absolute count of one or more cell type is decreased. Reference ranges for relative cell counts derived from: A Manual of Laboratory and Diagnostics Tests, 9th Ed, [employer], 2015. Pediatric Reference Intervals, 7th Ed, [employer], 2011. 35 LDL-CHOLESTEROL RISK CATEGORY* GOAL VERY HIGH (E.G. DIABETES + CVD) <70 MG/DL HIGH (DIABETICS; CHD RISK EQUIVALENTS) <100 MG/DL MODERATELY HIGH (MULTIPLE(2+) RISK FACTORS) <130 MG/DL 0 TO 1 RISK FACTORS <160 MG/DL * NCEP REPORT. CIRCULATION 2004; 110: 227-239 36 GLUCOSE REFERENCE RANGE BASED ON FASTING SPECIMEN. 37 LDL-CHOLESTEROL RISK CATEGORY* GOAL VERY HIGH (E.G. DIABETES + CVD) <70 MG/DL HIGH (DIABETICS; CHD RISK EQUIVALENTS) <100 MG/DL MODERATELY HIGH (MULTIPLE(2+) RISK FACTORS) <130 MG/DL 0 TO 1 RISK FACTORS <160 MG/DL * NCEP REPORT. CIRCULATION 2004; 110: 227-239 38 GLUCOSE REFERENCE RANGE BASED ON FASTING SPECIMEN. 39 GLUCOSE REFERENCE RANGE BASED ON FASTING SPECIMEN. 40 The upper reference limit for Creatinine is approximately 13% higher for people identified as -Citizen Of [place]. 41 LDL-CHOLESTEROL RISK CATEGORY* GOAL VERY HIGH (E.G. DIABETES + CVD) <70 MG/DL HIGH (DIABETICS; CHD RISK EQUIVALENTS) <100 MG/DL MODERATELY HIGH (MULTIPLE(2+) RISK FACTORS) <130 MG/DL 0 TO 1 RISK FACTORS <160 MG/DL * NCEP REPORT. CIRCULATION 2004; 110: 227-239 42 Target for non-HDL cholesterol is 30 mg/dL higher than LDL cholesterol target. 43 25-OHD3 indicates both endogenous production and supplementation. 25-OHD2 is an indicator of exogenous sources such as diet or supplementation. Therapy is based on measurement of Total 25-OHD, with levels <20 ng/mL indicative of Vitamin D deficiency while levels between 20 ng/mL and 30 ng/mL suggest insufficiency. Optimal levels are > or=30ng/mL. For more information on this test, go to http://[employer]/faq/25-OHVitaminD 44 GLUCOSE REFERENCE RANGE BASED ON FASTING SPECIMEN. 45 The upper reference limit for Creatinine is approximately 13% higher for people identified as -Citizen Of The [place]. 46 GLUCOSE REFERENCE RANGE BASED ON FASTING SPECIMEN. 47 LDL-CHOLESTEROL RISK CATEGORY* GOAL VERY HIGH (E.G. DIABETES + CVD) <70 MG/DL HIGH (DIABETICS; CHD RISK EQUIVALENTS) <100 MG/DL MODERATELY HIGH (MULTIPLE(2+) RISK FACTORS) <130 MG/DL 0 TO 1 RISK FACTORS <160 MG/DL * NCEP REPORT. CIRCULATION 2004; 110: 227-239 48 GLUCOSE REFERENCE RANGE BASED ON FASTING SPECIMEN. 49 The upper reference limit for Creatinine is approximately 13% higher for people identified as -Citizen Of [place]. 50 LDL-CHOLESTEROL RISK CATEGORY* GOAL VERY HIGH (E.G. DIABETES + CVD) <70 MG/DL HIGH (DIABETICS; CHD RISK EQUIVALENTS) <100 MG/DL MODERATELY HIGH (MULTIPLE(2+) RISK FACTORS) <130 MG/DL 0 TO 1 RISK FACTORS <160 MG/DL * NCEP REPORT. CIRCULATION 2004; 110: 227-239 51 GLUCOSE REFERENCE RANGE BASED ON FASTING SPECIMEN. 52 The upper reference limit for Creatinine is approximately 13% higher for people identified as -Citizen Of [place]. 53 LDL-CHOLESTEROL RISK CATEGORY* GOAL VERY HIGH (E.G. DIABETES + CVD) <70 MG/DL HIGH (DIABETICS; CHD RISK EQUIVALENTS) <100 MG/DL MODERATELY HIGH (MULTIPLE(2+) RISK FACTORS) <130 MG/DL 0 TO 1 RISK FACTORS <160 MG/DL * NCEP REPORT. CIRCULATION 2004; 110: 227-239 54 GLUCOSE REFERENCE RANGE BASED ON FASTING SPECIMEN. 55 AA 06/06/11 56 Anion gap measurement may be of limited value in the presence of any alkalosis, especially in a combined acid base disorder. . 57 Because ethnic data is not always readily available, this report includes an eGFR for both -Americans and non- Americans. The National Kidney Disease Education Program (NKDEP) does not endorse the use of the MDRD equation for patients that are not between the ages of 18 and 70, are , have extremes of body size, muscle mass, or nutritional status, or are non- or non-. According to the National Kidney Foundation, irrespective of diagnosis, the stage of the disease is based on the level of kidney function: Stage Description GFR(mL/min/1.73 m(2)) 1 Kidney damage with normal or decreased GFR 90 2 Kidney damage with mild decrease in GFR 60-89 3 Moderate decrease in GFR 30-59 4 Severe decrease in GFR 15-29 5 Kidney failure <15 (or dialysis) 58 PREADMISSION TESTING SAMPLES FOR BLOOD BANK WILL BE HELD FOR 14 DAYS FROM THE DATE OF COLLECTION *IF* THE FOLLOWING CRITERIA ARE MET: 1) THE PATIENT HAS *NOT* BEEN IN THE LAST 3 MONTHS. 2) THE PATIENT HAS *NOT* BEEN TRANSFUSED IN THE LAST 3 MONTHS. PREADMISSION TESTING SAMPLES WILL *NOT* BE HELD FOR 14 DAYS FROM PATIENTS WHO IN THE LAST 3 MONTHS: 1) HAVE BEEN 2) HAVE BEEN TRANSFUSED THESE PATIENTS *MUST* BE COLLECTED WITHIN 3 DAYS OF THE SURGERY DATE. 59 Recommended INR for Patients on Oral Anticoagulants Prophylaxis 2.0 - 3.0 Treatment of thrombosis 2.0 - 3.0 Prevention of embolism 2.0 - 3.0 Prevention of embolism from prosthetic heart valves 2.5 - 3.5 60 DIAGNOSIS,TREATMENT,AND THERAPY MUST BE BASED ON THE INR VALUE ALONE. 61 H H Check Failed 62 GLUCOSE REFERENCE RANGE BASED ON FASTING SPECIMEN. 63 QUERY: @ForMune Pat ID: QUERY: @ForMune Req #: 64 0 - 0.5 ng/mL: No evidence of myocardial injury 0.6 - 1.4 ng/mL: Mild elevation, suggesting possible myocardial injury > 1.4 ng/mL: Consisten with myocardial injury 65 Note: Persistent reduction for 3 months or more in an eGFR <60 mL/min/1.73 m2 defines CKD. Patients with eGFR values >/=60 mL/min/1.73 m2 may also have CKD if evidence of persistent proteinuria is present. The original MDRD equation for estimated GFR is not valid for patients less than 18 years of age. Additional information may be found at www.[email or web address]. 66 QUERY: @ForMune Pat ID: QUERY: @ForMune Req #: 67 QUERY: @ForMune Pat ID: QUERY: @ForMune Req #: 68 0 - 0.5 ng/mL: No evidence of myocardial injury 0.6 - 1.4 ng/mL: Mild elevation, suggesting possible myocardial injury > 1.4 ng/mL: Consisten with myocardial injury 69 THERAPEUTIC INR RANGE: 2.0 - 3.0 DVT, Pulmonary embolus, prophylaxis against venous thrombosis or systemic embolization in high risk patients. 2.5 - 3.5 Mechanical heart valves 70 Is patient on heparin protocol? N Is patient on anticoagulants? None QUERY: @EMR Pat ID: QUERY: @EMR Req #: QUERY: Anticoagulant Therapy? QUERY: Date of Last Dose: QUERY: Time of Last Dose: 71 Note: Persistent reduction for 3 months or more in an eGFR <60 mL/min/1.73 m2 defines CKD. Patients with eGFR values >/=60 mL/min/1.73 m2 may also have CKD if evidence of persistent proteinuria is present. The original MDRD equation for estimated GFR is not valid for patients less than 18 years of age. Additional information may be found at www.[email or web address]. 72 QUERY: @EMR Pat ID: QUERY: @EMR Req #: 73 0 - 0.5 ng/mL: No evidence of myocardial injury 0.6 - 1.4 ng/mL: Mild elevation, suggesting possible myocardial injury > 1.4 ng/mL: Consisten with myocardial injury 74 GLUCOSE REFERENCE RANGE BASED ON FASTING SPECIMEN. 75 GLUCOSE REFERENCE RANGE BASED ON FASTING SPECIMEN. 76 GLUCOSE REFERENCE RANGE BASED ON FASTING SPECIMEN. 77 FASTING 78 LDL-CHOLESTEROL RISK CATEGORY* GOAL VERY HIGH (E.G. DIABETES + CVD) <70 MG/DL HIGH (DIABETICS; CHD RISK EQUIVALENTS) <100 MG/DL MODERATELY HIGH (MULTIPLE(2+) RISK FACTORS) <130 MG/DL 0 TO 1 RISK FACTORS <160 MG/DL * NCEP REPORT. CIRCULATION 2004; 110: [id number] 79 GLUCOSE REFERENCE RANGE BASED ON FASTING SPECIMEN. 80 GLUCOSE REFERENCE RANGE BASED ON FASTING SPECIMEN. 81 LDL-CHOLESTEROL RISK CATEGORY* GOAL VERY HIGH (E.G. DIABETES + CVD) <70 MG/DL HIGH (DIABETICS; CHD RISK EQUIVALENTS) <100 MG/DL MODERATELY HIGH (MULTIPLE(2+) RISK FACTORS) <130 MG/DL 0 TO 1 RISK FACTORS <160 MG/DL * NCEP REPORT. CIRCULATION 2004; 110: [phone] 82 NO GROWTH 83 LDL-CHOLESTEROL RISK CATEGORY* GOAL VERY HIGH (E.G. DIABETES + CVD) <70 MG/DL HIGH (DIABETICS; CHD RISK EQUIVALENTS) <100 MG/DL MODERATELY HIGH (MULTIPLE(2+) RISK FACTORS) <130 MG/DL 0 TO 1 RISK FACTORS <160 MG/DL * NCEP REPORT. CIRCULATION 2004; 110: 227-239 84 GLUCOSE REFERENCE RANGE BASED ON FASTING SPECIMEN. 85 LDL-CHOLESTEROL RISK CATEGORY* GOAL VERY HIGH (E.G. DIABETES + CVD) <70 MG/DL HIGH (DIABETICS; CHD RISK EQUIVALENTS) <100 MG/DL MODERATELY HIGH (MULTIPLE(2+) RISK FACTORS) <130 MG/DL 0 TO 1 RISK FACTORS <160 MG/DL * NCEP REPORT. CIRCULATION 2004; 110: 227-239 86 TSH REFERENCE RANGE: FIRST TRIMESTER - 0.20 - 4.70 mU/L SECOND TRIMESTER - 0.30 - 4.10 mU/L THIRD TRIMESTER - 0.40 - 2.70 mU/L 87 0 - 0.6 NG/ML: NO EVIDENCE OF MYOCARDIAL INJURY 0.7 - 1.5 NG/ML: MILD ELEVATION, SUGGESTING POSSIBLE MYOCARDIAL INJURY > 1.5 NG/ML: CONSISTENT WITH MYOCARDIAL INJURY 88 Specimen: [id number] - TESTS: CBC, PT, PTT IS PATIENT ON HEPARIN PROTOCOL ? N IS PATIENT ON ANTICOAGULANTS? NONE TEST: CBC TEST: PT QUERY: Anticoagulant Therapy? QUERY: Date of Last Dose: QUERY: Time of Last Dose: TEST: PTT QUERY: Anticoagulant Therapy? QUERY: Date of Last Dose: QUERY: Time of Last Dose: 89 0 - 0.6 NG/ML: NO EVIDENCE OF MYOCARDIAL INJURY 0.7 - 1.5 NG/ML: MILD ELEVATION, SUGGESTING POSSIBLE MYOCARDIAL INJURY > 1.5 NG/ML: CONSISTENT WITH MYOCARDIAL INJURY 90 THERAPEUTIC INR RANGE: 2.0 - 3.0 DVT, Pulmonary embolus, prophylaxis against venous thrombosis or systemic embolization in high risk patients. 2.5 - 3.5 Mechanical heart valves 91 FASTING 92 GLUCOSE REFERENCE RANGE BASED ON FASTING SPECIMEN. 93 HDL REFERENCE RANGES ADULTS (20 YEARS & OLDER) DESIRABLE: > OR=60 MG/DL HIGHER RISK: <40 MG/DL 94 LDL-CHOLESTEROL RISK CATEGORY* GOAL VERY HIGH (E.G. DIABETES + CVD) <70 MG/DL HIGH (DIABETICS; CHD RISK EQUIVALENTS) <100 MG/DL MODERATELY HIGH (MULTIPLE(2+) RISK FACTORS) <130 MG/DL 0 TO 1 RISK FACTORS <160 MG/DL * NCEP REPORT. CIRCULATION 2004; 110: 227-239 95 GLUCOSE REFERENCE RANGE BASED ON FASTING SPECIMEN. 96 HDL REFERENCE RANGES ADULTS (20 YEARS & OLDER) DESIRABLE: > OR=60 MG/DL HIGHER RISK: <40 MG/DL 97 LDL-CHOLESTEROL RISK CATEGORY* GOAL VERY HIGH (E.G. DIABETES + CVD) <70 MG/DL HIGH (DIABETICS; CHD RISK EQUIVALENTS) <100 MG/DL MODERATELY HIGH (MULTIPLE(2+) RISK FACTORS) <130 MG/DL 0 TO 1 RISK FACTORS <160 MG/DL * NCEP REPORT. CIRCULATION 2004; 110: 227-239 98 TSH REFERENCE RANGE: FIRST TRIMESTER - 0.20 - 4.70 mU/L SECOND TRIMESTER - 0.30 - 4.10 mU/L THIRD TRIMESTER - 0.40 - 2.70 mU/L 99 GLUCOSE REFERENCE RANGE BASED ON FASTING SPECIMEN. 10 THE GFR ESTIMATE IS NOT ADJUSTED FOR RACE, IF THE 0 PATIENT RACE IS -[place], THE GFR ESTIMATE MUST BE MULTIPLIED BY A FACTOR OF 1.21. 10 HDL REFERENCE RANGES 1 ADULTS (20 YEARS & OLDER) DESIRABLE: > OR=60 MG/DL HIGHER RISK: <40 MG/DL 10 LDL-CHOLESTEROL 2 RISK CATEGORY* GOAL VERY HIGH (E.G. DIABETES + CVD) <70 MG/DL HIGH (DIABETICS; CHD RISK EQUIVALENTS) <100 MG/DL MODERATELY HIGH (MULTIPLE(2+) RISK FACTORS) <130 MG/DL 0 TO 1 RISK FACTORS <160 MG/DL * NCEP REPORT. CIRCULATION 2004; 110: 227-239 10 HDL REFERENCE RANGES 3 ADULTS (20 YEARS & OLDER) DESIRABLE: > OR=60 MG/DL HIGHER RISK: <40 MG/DL 10 LDL-CHOLESTEROL 4 RISK CATEGORY* GOAL VERY HIGH (E.G. DIABETES + CVD) <70 MG/DL HIGH (DIABETICS; CHD RISK EQUIVALENTS) <100 MG/DL MODERATELY HIGH (MULTIPLE(2+) RISK FACTORS) <130 MG/DL 0 TO 1 RISK FACTORS <160 MG/DL * NCEP REPORT. CIRCULATION 2004; 110: 227-239 10 GLUCOSE REFERENCE RANGE BASED ON FASTING SPECIMEN. 5 10 THE GFR ESTIMATE IS NOT ADJUSTED FOR RACE, IF THE 6 PATIENT RACE IS -[place], THE GFR ESTIMATE MUST BE MULTIPLIED BY A FACTOR OF 1.21. 10 HDL REFERENCE RANGES 7 ADULTS (20 YEARS & OLDER) DESIRABLE: > OR=60 MG/DL HIGHER RISK: <40 MG/DL 10 8 LDL-CHOLESTEROL RISK CATEGORY* GOAL VERY HIGH (E.G. DIABETES + CVD) <70 MG/DL HIGH (DIABETICS; CHD RISK EQUIVALENTS) <100 MG/DL MODERATELY HIGH (MULTIPLE(2+) RISK FACTORS) <130 MG/DL 0 TO 1 RISK FACTORS <160 MG/DL * NCEP REPORT. CIRCULATION 2004; 110: 227-239 10 GLUCOSE REFERENCE RANGE BASED ON FASTING SPECIMEN. 9 11 THE GFR ESTIMATE IS NOT ADJUSTED FOR RACE, IF THE 0 PATIENT'S RACE IS -[place], THE GFR ESTIMATE MUST BE MULTIPLIED BY A FACTOR OF 1.21. Procedures Date Code Description Status 10/17/2017 80776 Non-Invcorrotid/Comp /Bilat Study Completed 10/15/2017 44606 Echocardiography Completed 10/15/2017 46280 EKG-Tracing & Report Completed 12/21/2016 07974 Echocardiography Completed 12/20/2016 33944 EKG-Tracing & Report Completed 12/18/2016 98800 Non-Invcorrotid/Comp /Bilat Study Completed 12/14/2015 35297 EKG-Tracing & Report Completed 12/13/2015 29635 Holter Monitor Office Completed 12/09/2015 [id number] Bone Mineral Density Test Completed 12/09/2015 88392 Echocardiography Completed 12/09/2015 73819 Dxa Bone Density [employer] Vertebral Fracture Completed Assessment 12/07/2015 16266 Non-Invcorrotid/Comp /Bilat Study Completed 03/02/2015 50328 Holter Monitor Office Completed 11/26/2014 78912 Non-Invcorrotid/Comp /Bilat Study Completed 11/24/2014 30264 Echocardiography Completed 12/01/2013 09615 EKG-Tracing & Report Completed 11/27/2013 37005 Bone Density,Vertebral Fracture Completed 11/27/2013 89591 Bone Density Completed 11/25/2013 09306 Non-Invcorrotid/Comp /Bilat Study Completed 11/24/2013 49098 Echocardiography Completed 12/02/2012 04641 EKG-Tracing & Report Completed 04/26/2011 57376 EKG-Tracing & Report Completed 09/08/2010 34960 EKG-Tracing & Report Completed 01/31/2010 53378 Non-Invcorrotid/Comp /Bilat Study Completed 01/31/2010 70858 Echocardiography Completed 01/27/2010 37007 EKG-Tracing & Report Completed 01/14/2009 05225 EKG-Tracing & Report Completed 01/13/2009 32137 Echocardiography Completed 07/09/2008 90623 Non-Invcorrotid/Comp /Bilat Study Completed 07/18/2007 58743 Non-Invcorrotid/Comp /Bilat Study Completed 07/18/2007 03330 Doppler Color Flow Velocity Completed 07/18/2007 44063 Doppler/ECHO Completed 07/18/2007 16011 ECHO-2D W/Wo M-Mode Completed 07/18/2007 09721 EKG-Tracing & Report Completed 01/10/2007 61670 Bone Density,Vertebral Fracture Completed 01/10/2007 61238 Bone Density Completed 07/23/2006 50421 EKG-Tracing & Report Completed 09/25/2005 56446 Ear Lavage Completed 07/20/2005 49211 Doppler Color Flow Velocity Completed 07/20/2005 78963 Doppler/ECHO Completed 07/20/2005 25121 ECHO-2D W/Wo M-Mode Completed 07/20/2005 41713 EKG-Tracing & Report Completed 07/11/2004 55657 Bone Density Study Completed 07/04/2004 45227 Stress Test Interp/Report Only Completed 07/04/2004 91750 Stress Test Physician Supervision Completed 06/28/2004 43872 EKG-Tracing & Report Completed 06/24/2004 37332 Non-Invcorrotid/Comp /Bilat Study Completed 06/24/2004 64437 Doppler Color Flow Velocity Completed 06/24/2004 00996 Doppler/ECHO Completed 06/24/2004 77944 ECHO-2D W/Wo M-Mode Completed 11/15/2003 46549 EKG-Inter.& Hosp. Report Completed Encounters Type Date Location Provider Dx Diagnosis Office Visit 05/14/2018 Main Office Suri Villavicencio M.D. 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 unspecified Office Visit 10/25/2017 Main Office Suri Villavicencio, R73.01 Impaired fasting glucose 10:00a M.D. I11.9 Hypertensive heart disease without heart failure E78.2 Mixed hyperlipidemia Office Visit 07/03/2017 10:30a Main Office Suri Villavicencio J20.9 Acute bronchitis, M.D. unspecified Office Visit 04/30/2017 11:30a Main Office Suri Villavicencio, K80.20 Calculus of M.D. gallbladder w/o cholecystitis w/o obstruction R73.01 Impaired fasting glucose I11.9 Hypertensive heart disease without heart failure Z23 Encounter for immunization Office Visit 04/11/2017 1:45p Main Office Suri Villavicencio, L20.9 Atopic dermatitis, M.D. unspecified S90.412A Abrasion, left great toe, initial encounter Office Visit 12/27/2016 10:00a Main Office Suri Villavicencio, E78.2 Mixed hyperlipidemia M.D. I11.9 Hypertensive heart disease without heart failure R73.01 Impaired fasting glucose G25.81 Restless legs syndrome Office Visit 11/13/2016 1:30p Main Office Suri Villavicencio, S33.5xxA Sprain of M.D. ligaments of lumbar spine, initial encounter M48.06 Spinal stenosis, lumbar region Office Visit 09/26/2016 2:45p Main Office Suri Villavicencio, I11.9 Hypertensive heart M.D. disease without heart failure M48.06 Spinal stenosis, lumbar region Office Visit 09/12/2016 10:45a Main Office uSri Villavicencio, R10.30 Lower abdominal M.D. pain, unspecified Office Visit 08/09/2016 3:00p Main Office Suri Villavicencio, J01.90 Acute sinusitis, M.D. unspecified Office Visit 07/03/2016 11:00a Main Office Suri Villavicencio M48.06 Spinal stenosis, M.D. lumbar region I11.9 Hypertensive heart disease without heart failure E78.5 Hyperlipidemia, unspecified Z23 Encounter for immunization Office Visit 05/29/2016 11:30a Main Office Suri Villavicencio J20.9 Acute bronchitis, M.D. unspecified Office Visit 04/18/2016 11:15a Main Office Suri Villavicencio M48.06 Spinal stenosis, M.D. lumbar region G25.81 Restless legs syndrome R73.01 Impaired fasting glucose I11.9 Hypertensive heart disease without heart failure Office Visit 03/07/2016 2:30p Main Office Suri Villavicencio M48.06 Spinal stenosis, M.D. lumbar region G25.81 Restless legs syndrome Office Visit 12/30/2015 10:30a Main Office Suri Villavicencio M.D. G25.81 Restless legs syndrome R73.01 Impaired fasting glucose I11.9 Hypertensive heart disease without heart failure Office Visit 09/27/2015 11:45a Main Office Suri Villavicencio, J20.8 Acute bronchitis due M.D. to other specified organisms Office Visit 06/09/2015 11:00a Main Office Suri Villavicencio, I11.9 Hypertensive heart M.D. disease without heart failure E78.5 Hyperlipidemia, unspecified R73.01 Impaired fasting glucose K21.9 Gastro-esophageal reflux disease without esophagitis Z23 Encounter for immunization Office Visit 03/08/2015 11:15a Main Office Suri Villavicencio, 402.10 Hypertensive Heart M.D. Disease Benign W/O Heart Failure 272.4 Hyperlipidemia Other Unspec Office Visit 12/14/2014 2:45p Main Office Suri Villavicencio, 466.00 Acute Bronchitis M.D. Office Visit 12/08/2014 11:00a Main Office Suri Villavicencio, 402.10 Hypertensive Heart M.D. Disease Benign W/O Heart Failure 272.4 Hyperlipidemia Other Unspec 790.21 Impaired Fasting Glucose Office Visit 11/09/2014 11:45a Main Office Suri Villavicencio, 386.31 Labyrinthitis Serous M.D. Office Visit 06/15/2014 1:30p Main Office Suri Villavicencio, 402.10 Hypertensive Heart M.D. Disease Benign W/O Heart Failure 272.4 Hyperlipidemia Other Unspec Office Visit 12/16/2013 2:30p Main Office Suri Villavicencio, 272.4 Hyperlipidemia Other M.D. Unspec 402.10 Hypertensive Heart Disease Benign W/O Heart Failure Office Visit 07/23/2013 11:15a Main Office Suri Villavicencio, 682.2 Cellulitis & Abscess M.D. Trunk E905.1 Poisoning & Toxic Reaction Due To Venomous Spiders 402.10 Hypertensive Heart Disease Benign W/O Heart Failure 272.4 Hyperlipidemia Other Unspec Office Visit 07/15/2013 11:45a Main Office Suri Villavicencio, E905.1 Poisoning & Toxic M.D. Reaction Due To Venomous Spiders 682.2 Cellulitis & Abscess Trunk Office Visit 06/18/2013 11:00a Main Office Srui Villavicencio 402.10 Hypertensive Heart M.D. Disease Benign W/O Heart Failure 272.4 Hyperlipidemia Other Unspec 724.02 Spinal Stenosis Lumbar Region 790.21 Impaired Fasting Glucose 530.81 Esophageal Reflux V04.81 Need For Prophylactic Vaccination & Inoculation/Influenza Office Visit 03/17/2013 11:00a Main Office Suri Villavicencio, 402.10 Hypertensive Heart M.D. Disease Benign W/O Heart Failure 272.4 Hyperlipidemia Other Unspec 724.02 Spinal Stenosis Lumbar Region Office Visit 12/16/2012 11:00a Main Office Suri Villavicencio 272.4 Hyperlipidemia Other M.D. Unspec 402.10 Hypertensive Heart Disease Benign W/O Heart Failure 790.21 Impaired Fasting Glucose Office Visit 08/01/2012 12:00p Main Office Suri Villavicencio, 847.2 Sprains & Strains M.D. Lumbar Office Visit 06/17/2012 11:15a Main Office Suri Villavicencio 402.10 Hypertensive Heart M.D. Disease Benign W/O Heart Failure 272.4 Hyperlipidemia Other Unspec 530.81 Esophageal Reflux V04.81 Need For Prophylactic Vaccination & Inoculation/Influenza Office Visit 02/14/2012 11:15a Main Office Suri Villavicencio, 402.10 Hypertensive Heart M.D. Disease Benign W/O Heart Failure 724.02 Spinal Stenosis Lumbar Region 272.4 Hyperlipidemia Other Unspec 433.10 Occlusion & Stenosis Carotid Artery W/O Cerebral Infarction 424.0 Mitral Valve Disorder 426.40 Right Bundle Branch Block Office Visit 08/09/2011 2:15p Main Office Suri Villavicencio M.D. 724.02 Spinal Stenosis Lumbar Region 402.10 Hypertensive Heart Disease Benign W/O Heart Failure 433.10 Occlusion & Stenosis Carotid Artery W/O Cerebral Infarction 272.4 Hyperlipidemia Other Unspec 424.0 Mitral Valve Disorder 426.40 Right Bundle Branch Block Office Visit 05/10/2011 2:30p Main Office Suri Villavicencio M.D. 530.81 Esophageal Reflux 272.4 Hyperlipidemia Other Unspec 786.50 Pain Chest Unspec 724.02 Spinal Stenosis Lumbar Region Office Visit 04/27/2011 10:45a Main Office Suri Villavicencio 272.4 Hyperlipidemia Other M.D. Unspec 530.81 Esophageal Reflux 786.50 Pain Chest Unspec V04.81 Need For Prophylactic Vaccination & Inoculation/Influenza Office Visit 03/20/2011 2:15p Main Office Suri Villavicencio, 706.2 Sebaceous Cyst M.D. Office Visit 02/08/2011 10:00a Main Office Suri Villavicencio 724.02 Spinal Stenosis M.D. Lumbar Region 845.10 Sprains & Strains Foot Unspec Site Office Visit 01/23/2011 10:00a Main Office Suri Villavicencio M.D. 724.02 Spinal Stenosis Lumbar Region 845.10 Sprains & Strains Foot Unspec Site Office Visit 11/09/2010 10:15a Main Office Suri Villavicencio, 466.00 Acute Bronchitis M.D. Office Visit 10/19/2010 1:30p Main Office Suri Villavicencio, 977.9 Poisoning By M.D. Medicinal Substance Unspec Office Visit 10/06/2010 10:15a Main Office Suri Villavicencio, 402.10 Hypertensive Heart M.D. Disease Benign W/O Heart Failure 722.93 Disc Disorder Other & Unspec Lumbar Region Office Visit 09/14/2010 10:30a Main Office Suri Villavicencio 722.93 Disc Disorder Other M.D. & Unspec Lumbar Region Office Visit 09/08/2010 11:45a Main Office Suri Villavicencio 402.10 Hypertensive Heart M.D. Disease Benign W/O Heart Failure Office Visit 08/10/2010 10:00a Main Office Suri Villavicencio 402.10 Hypertensive Heart M.D. Disease Benign W/O Heart Failure 724.3 Sciatica 722.93 Disc Disorder Other & Unspec Lumbar Region Office Visit 05/23/2010 10:00a Main Office Suri Villavicencio 402.10 Hypertensive Heart M.D. Disease Benign W/O Heart Failure 724.3 Sciatica V04.81 Need For Prophylactic Vaccination & Inoculation/Influenza Office Visit 05/10/2010 11:30a Main Office Suri Villavicencio M.D. 722.93 Disc Disorder Other & Unspec Lumbar Region 402.10 Hypertensive Heart Disease Benign W/O Heart Failure Office Visit 02/15/2010 11:00a Main Office Suri Villavicencio 433.10 Occlusion & M.D. Stenosis Carotid Artery W/O Cerebral Infarction 402.10 Hypertensive Heart Disease Benign W/O Heart Failure 530.81 Esophageal Reflux 272.4 Hyperlipidemia Other Unspec Office Visit 11/29/2009 10:15a Main Office Suri Villavicencio M.D. 724.3 Sciatica 272.4 Hyperlipidemia Other Unspec 530.81 Esophageal Reflux Office Visit 11/15/2009 10:45a Main Office Suri Villavicencio M.D. 722.20 Herniated Disc 724.3 Sciatica Office Visit 11/11/2009 2:00p Main Office Suri Villavicencio M.D. 722.20 Herniated Disc 724.3 Sciatica Office Visit 07/29/2009 10:30a Main Office Suri Villavicencio 402.10 Hypertensive Heart M.D. Disease Benign W/O Heart Failure 272.4 Hyperlipidemia Other Unspec Office Visit 01/28/2009 10:30a Main Office Suri Villavicencio M.D. 599.0 UTI Urinary Tract Infection Site Not Spec 272.4 Hyperlipidemia Other Unspec 402.10 Hypertensive Heart Disease Benign W/O Heart Failure V03.7 Tetanus Toxoid Vaccination & Inoculation Office Visit 10/02/2008 10:20a Main Office Jose Juan Mcnally MD 558.9 Gastroenteritis & Colitis Noninfectious Other GENERAL General Office Visit 07/30/2008 10:00a Main Office Suri Villavicencio 402.10 Hypertensive Heart M.D. Disease Benign W/O Heart Failure 530.81 Esophageal Reflux Office Visit 03/18/2008 10:00a Main Office Suri Villavicencio 530.81 Esophageal Reflux M.D. Office Visit 01/30/2008 10:00a Main Office Suri Villavicencio 402.10 Hypertensive Heart M.D. Disease Benign W/O Heart Failure 272.4 Hyperlipidemia Other Unspec 272.40 Hyperlipidemia Office Visit 08/01/2007 10:30a Main Office Suri Villavicencio M.D. 272.40 Hyperlipidemia 402.10 Hypertensive Heart Disease Benign W/O Heart Failure Office Visit 01/24/2007 11:30a Main Office Suri Villavicencio M.D. 272.40 Hyperlipidemia 402.10 Hypertensive Heart Disease Benign W/O Heart Failure Office Visit 07/30/2006 2:00p Main Office Suri Villavicencio M.D. 272.40 Hyperlipidemia 426.40 Right Bundle Branch Block 402.10 Hypertensive Heart Disease Benign W/O Heart Failure Office Visit 01/29/2006 2:00p Main Office Suri Villavicencio 402.10 Hypertensive Heart M.D. Disease Benign W/O Heart Failure 692.89 Dermatitis Due To Spec Agents Other Office Visit 11/07/2005 11:45a Main Office Suri Villavicencio M.D. 995.3 Allergy Unspec Office Visit 10/13/2005 12:00p Main Office Jose Juan Mcnally MD 380.4 Impacted Cerumen Office Visit 09/25/2005 1:45p Main Office Suri Villavicencio M.D. 380.4 Impacted Cerumen 381.10 Otitis Media Simple Or Unspec Chronic Office Visit 07/31/2005 1:30p Main Office Suri Villavicencio M.D. 426.40 Right Bundle Branch Block 402.10 Hypertensive Heart Disease Benign W/O Heart Failure 733.01 Osteoporosis Senile Office Visit 01/11/2005 2:00p Main Office Suri Villavicencio 402.10 Hypertensive Heart M.D. Disease Benign W/O Heart Failure Office Visit 07/12/2004 11:00a Main Office Suri Villavicencio 402.10 Hypertensive Heart M.D. Disease Benign W/O Heart Failure 746.60 Mitral Regurgitation Office Visit 05/23/2004 10:30a Main Office Suri Villaviecncio 402.10 Hypertensive Heart M.D. Disease Benign W/O Heart Failure 272.40 Hyperlipidemia Office Visit 12/03/2003 1:00p Main Office Suri Villavicencio, 726.19 Shoulder Disorders Ashley Other Spec Office Visit 11/25/2003 3:00p Main Office Suri Villavicencio 722.20 Herniated Disc Ashley 959.20 Shoulder, Arm Injury Office Visit 11/18/2003 3:00p Main Office Suri Villavicencio M.D. 719.47 Pain Joint Ankle & Foot Plan of Treatment Future Appointment(s):08/27/2018 10:00 am - Suri Villavicencio M.D[facility] [id number] - Suri Villavicencio M.D.E05.00 Thyrotoxicosis with diffuse goiter without thyrotoxic crisisComments:continue metoprolol for now discussed blood pressure monitoring, remains on tjubamdwgerI57.9 Hypertensive heart disease without heart failureComments:see note above
--- OUTSIDE RECORDS SUMMARY | 2018-07-16 06:56 | XMS REPORT | Continuity of Care Document ---
:1940 External Reference #:[id number] Author Name Gabby Lopez Care Team Providers Name Role Phone Suri Villavicencio MD Primary Care Physician Unavailable Payers Type Date Identification Numbers Payment Provider Subscriber Policy Number: [id number] Medicare Carola Champion PayID: [id number] [address] [place] [address] Policy Number: [id number] [facility] [employer] Ins. Program Carola Champion PayID: [id number] [address] [place] [address] Advance Directives Description No Information Available Problems [...] small L20.9 Suri Valerate 2016 amount to pavel Villavicenciod M.DRell area twice a day Pramipexole 03/07/ Active Tablets 0.125mg 90tab one at M48.06 Suri Dihydrochloride 2016 s bedtime Ashley Villavicencio Omeprazole 05/10/ Active Capsules 40mg 90cap Take One K21.9 Suri 2010 s Capsule Saud, By Mouth M.DRell Every Day Enalapril Maleate 05/23/ Active Tablets 2.5mg 180ta Take One Suri 2009 bs Tablet By Saud, Mouth M.DRell Twice A Day Blood Pressure 05/10/ Active [...] po at 724.02 Suri 2012 hs Saud, 03/07/ M.D. 2016 Metoprolol 02/13/ Hx Tablets ER [...] Capsules 25mg 50cap 1 po prn 977.9 Suri 2010 jolly Villavicencio, 10/27/ directed M.D. 2010 Amoxicillin/Clavu 10/19/ Hx Tablets 500-125mg 20tab 1 po bid 977.9 Suri lanate Potassium 2011 Carlton Villavicencio, M.D. 2010 Cyclobenzaprine 09/14/ Hx Tablets 10mg [...] prn Saud, 02/13/ pain M.D. 2011 Omeprazole 11/29/ Hx Capsules 20mg 30cap 1 po qd 530.81 Suri 2009 Carlton Villavicencio, 05/10/ bedtime M.D. 2010 Cyclobenzaprine 11/11/ Hx [...] 07/29/ Hx Capsules 1000mg 1 cap qd Suir 2008 - Saud, M.D. 2011 Lotrisone 01/29/ Hx Cream 0.05%;1 % 15gm Apply AD 692.89 Suri 2005 - zuhair Villavicencio, M.D. 2005 Ranitidine 11/07/ Hx Tablets 75mg 15tab 1 qd 995.3 Suri 2005 - s Saud, M.D. 2005 Bactrim DS 10/23/ Hx Tablets 160mg;800 14tab 1 PO bid Suri 2006 - mg s Saud, M.DRell 2005 Amoxil 09/25/ Hx Tablets 500mg QS 1 PO tid 381.10 Suri 2005 - X 5 Days Saud, M.DRell 2005 Vasotec 07/31/ Hx Tablets 2.5mg 100ta po qd Suri 2004 - bs Saud, .D. 2009 Vitamin C 07/31/ Hx Tablets 500mg 1 PO qd Suri 2004 Saud, M.D. 2011 Vitamin E 07/31/ Hx Capsules 400Units 1 PO qd Suri 2004 Saud, .D. 2011 Calcium Carbonate 07/31/ Hx Tablets 500mg 1 po qd Suri / Vit D 2004 Saud, .D. 2017 Famotidine // Hx Tablets 20mg Unknown 0000 - 2017 Oxycodone-Acetami 00/ Hx Tablets 5-325mg Take One Unknown nophen 0000 - Tablet By 2017 Every 4 To 6 Hours Maximum Daily Dose 6 Ondansetron 00/ Hx Tablets 4mg Unknown 0000 - Dispers [...] Influenza Virus (Afluria) Split Virus 3 Years [id number] Of Age And Older Q2037 Given 07/03/2016 Influenza Vaccine (Fluvirin) 3 Years Of Age Or [id number] Older Q2035 Given 06/09/2015 Influenza Virus (Afluria) Split Virus 3 Years [id number] Of Age And Older Q2037 Given 05/04/2014 Influenza Vaccine (Fluvirin) 3 Years Of Age Or Older Q2037 Given 05/04/2014 Influenza Vaccine (Fluvirin) 3 Years Of Age Or [id number] Older Q2035 Given 06/18/2013 Influenza Virus (Afluria) Split Virus 3 Years [id number] Of Age And Older Q2037 Given 06/17/2012 Influenza Vaccine (Fluvirin) 3 Years Of Age Or [id number] Older Q2036 Given 04/27/2011 Flulaval [id number] 66100 Given 05/23/2010 Influenza Vaccine [id number] 97922 Given 05/06/2009 Influenza Vaccine [id number] 32865 Given 01/28/2009 Tetanus Shot [id number] 61935 Given 05/28/2008 Influenza Vaccine [id number] 20221 Given 05/31/2007 Influenza Vaccine 59984 03929 Given 05/28/2006 Influenza Vaccine 02570 32024 Given 06/13/2005 Influenza Vaccine [id number] 05940 Given 06/13/2005 Influenza Vaccine 00842 Given 07/22/2004 Influenza Vaccine 12885 Given 04/20/2002 [place] [address] Given 05/20/1997 DT Immunization DIP/Tet (History Only) [...] Result H/L Range Note Laboratory test 01/15/2018 [facility] SEE RESULT [address] Interface Order BELOW [place] [address] [phone] CBC W/ Diff & 10/15/2017 [facility] WBC 5.7 3.8-10.[address] thous/[place] [address] [phone] RBC 5.21 mill/L High 3.80-5.10 Hemoglobin 13.1 g/dL 11.7-15.5 Hematocrit 39.7 % 35.0-45.0 MCV 76.3 FL Low 80.0-100.0 MCH 25.1 pg Low 27.0-33.0 MCHC 32.8 g/dL 32.0-36.0 RDW 14.6 % 11.0-15.0 Platelet Count 188 thous/L 140-400 Platelet Sufficiency PENDING MPV 8.3 FL 7.5-12.5 Neutrophils,Absolute 2710 cells/L [phone] Bands,Absolute PENDING Metamyelocytes,Absolute PENDING Myelocytes,Absolute PENDING Promyelocytes,Absolute [...] [facility] Sodium 141 mmol/L 135-[address] [place] [address] [phone] Potassium 4.2 mmol/L 3.5-5.3 Chloride 106 mmol/L 98-110 Carbon Dioxide 28 mmol/L 20-31 Calcium 9.0 mg/dL 8.6-10.4 Glucose 108 mg/dL High 65-99 3 Urea Nitrogen (BUN) 13 mg/dL 7-25 Creatinine 0.74 mg/dL 0.60-0.93 4 BUN/Creatinine Ratio 17.7 6-22 Egfr Non-Afr. Kuwaiti 78 ML/MIN/1.73M2 > Or=60 Egfr 91 ML/MIN/1.73M2 > Or=60 Lipid Panel 10/15/2017 [facility] Cholesterol 161 mg/dL <[address] [place] [address] [phone] HDL Cholesterol 29 mg/dL Low >50 Cholesterol/HDL Ratio 5.6 CALC High <5.0 LDL Chol,Calculated 103 mg/dL High 0-100 5 Triglycerides 170 mg/dL High <150 Non-HDL Cholesterol 132 mg/dL High <130 6 Laboratory test 10/15/2017 [facility] Hemoglobin A1c 5.8 % High 0-5.6 [address] [place] [address] [phone] Laboratory test 07/18/2017 [facility] SEE RESULT [address] [place] [address] [phone] Laboratory test 05/22/2017 [facility] SEE RESULT [address] [place] [place] [address] [phone] Basic Metabolic 04/24/2017 [facility] Sodium 140 mmol/L 135-[address] [place] [address] [phone] Potassium 4.3 mmol/L 3.5-5.3 Chloride 104 mmol/L 98-110 Carbon Dioxide 25 mmol/L 20-31 Calcium 9.2 mg/dL 8.6-10.4 Glucose 129 mg/dL High 65-99 10 Urea Nitrogen 15 mg/dL 7-25 Creatinine 0.82 mg/dL 0.60-0.93 11 BUN/Creatinine Ratio 17.9 6-22 Egfr Non-Afr. Kuwaiti 69 ML/MIN/1.73M2 > Or=60 Egfr 80 ML/MIN/1.73M2 > Or=60 Laboratory test 04/24/2017 [facility] Hemoglobin A1c 6.1 % High 0-5.6 [address] [place], [place] [address] [phone] TSH & T4,Free 04/24/2017 [facility] TSH 1.14 0.40-4.[address] mIU/L [place], [place] [address] [phone] T4,Free 1.7 ng/dL 0.8-1.8 Iron Deficiency Profile 04/24/2017 [facility] Iron,Total 79 g/dL 45- [address] [place] [address] [phone] Tibc 395 g/dL 250-450 % Saturation 20 % 11-50 Ferritin 19 NG/ML Low 20-288 Ua RFX Micro & 04/19/2017 [facility] Urine Color YELLOW Yellow 14 Culture II [address] [place] [address] [phone] Urine Clarity CLEAR Clear Urine Glucose - Dipstick NEGATIVE mg/dL Negative Urine Bilirubin - Dipstick NEGATIVE Negative Urine Ketone NEGATIVE mg/dL Negative Urine Specific [place] >=1.030 1.010-1.030 Urine Blood NEGATIVE Negative Urine PH 5.0 Low 6.5-7.5 Urine Protein - Dipstick TRACE mg/dL Negative Urine Urobilinogen - Dipstick 0.2 E.U./dL 0.2-1.0 Urine Nitrite - Dipstick NEGATIVE Negative Urine Leuk Esterase NEGATIVE Negative Source: URINE, CLEAN CAT <SEE NOTE> 15 CBS W/Automated 04/19/2017 [facility] White Blood 6.7 K/uL 3.1-10.[address] [place] [address] [phone] Red Blood Count 5.26 M/uL 3.90-5.40 Hemoglobin [...] % 40.4-72.8 Lymph % 33.6 % 20.0-42.0 Evans % 8.1 % 4.3-13.2 Eo% 2.7 % 0.0-6.6 Bas% 0.3 % 0.0-1.1 Neut# 3.68 K/uL 1.8-7.0 Lymph # 2.24 K/uL 1.0-4.0 Evans # 0.54 K/uL 0.3-0.9 Eos # 0.18 K/uL 0.0-0.5 Baso # 0.02 K/uL 0.0-0.1 Comprehensive 04/19/2017 [facility] Glucose 190 mg/ dL High 74-106 Metabolic Panel [address] [place], [place] [id number] [phone] BUN 17 mg/dL 7-18 Creatinine 1.0 mg/dL [...] Phosphatase 113 U/L 45-117 Laboratory test 04/19/2017 [facility] Lipase 353 U/L 73-[address] [place] [address] [phone] Laboratory test 04/19/2017 [facility] Troponin-I < 0.015 [address] ng/[place] [address] [phone] CBC W/ Diff & PLT 12/20/2016 [facility] WBC 6.1 3.8-10.[address] thous/[place] [address] [phone] RBC 5.35 mill/L High 3.80-5.10 Hemoglobin 13.7 g/dL 11.7-15.5 Hematocrit 42.5 % 35.0-45.0 MCV 79.5 FL Low 80.0-100.0 MCH 25.6 pg Low 27.0-33.0 MCHC 32.2 g/dL 32.0-36.0 RDW 14.1 % 11.0-15.0 Platelet Count 213 thous/L 140-400 Platelet Sufficiency PENDING MPV 8.3 FL 7.5-12.5 Neutrophils,Absolute 3370 cells/L 0074-2023 Bands,Absolute PENDING Metamyelocytes,Absolute PENDING Myelocytes,Absolute PENDING Promyelocytes,Absolute [...] [facility] Sodium 141 mmol/L 135-146 [address] [place] [address] [phone] Potassium 4.3 mmol/L 3.5-5.3 Chloride 107 mmol/L 98-110 Carbon Dioxide 28 mmol/L 20-31 Calcium 9.3 mg/dL 8.6-10.4 Glucose 131 mg/dL High 65-99 20 Urea Nitrogen 13 mg/dL 7-25 Creatinine 0.73 mg/dL 0.60-0.93 21 BUN/Creatinine Ratio 18.2 6-22 Egfr Non-Afr. Kuwaiti 80 ML/MIN/1.73M2 > Or=60 Egfr 93 ML/MIN/1.73M2 > Or=60 CBC W/ Diff & PLT 09/12/2016 [facility] WBC 4.6 thous/L 3.8-10.8 [address] [facility] [place] [address] [phone] RBC 5.17 mill/L High 3.80-5.10 Hemoglobin 13.9 g/dL 11.7-15.5 Hematocrit 41.8 % 35.0-45.0 MCV 80.8 FL 80.0-100.0 MCH 26.9 pg Low 27.0-33.0 MCHC 33.3 g/dL 32.0-36.0 RDW 13.9 % 11.0-15.0 Platelet Count 196 thous/L 140-400 Platelet Sufficiency PENDING MPV 8.9 FL 7.5-12.5 Neutrophils,Absolute 2650 cells/L [phone] Bands,Absolute PENDING Metamyelocytes,Absolute PENDING Myelocytes,Absolute PENDING Promyelocytes,Absolute [...] [facility] Sodium 143 mmol/L 135-[address] [place] [address] [phone] Potassium 3.8 mmol/L 3.5-5.3 Chloride 107 mmol/L 98-110 Carbon Dioxide 27 mmol/L 20-31 Calcium 9.5 mg/dL 8.6-10.4 Glucose 165 mg/dL High 65-99 23 Urea Nitrogen 17 mg/dL 7-25 Creatinine 0.88 mg/dL 0.60-0.93 24 BUN/Creatinine Ratio 19.0 6-22 Egfr Non-Afr. Kuwaiti 64 ML/MIN/1.73M2 > Or=60 Egfr 74 ML/MIN/1.73M2 > Or=60 BMP W/O Egfr 04/11/2016 [facility] Sodium 141 mmol/L 135-[address] [place] [address] [phone] Potassium 4.2 mmol/L 3.5-5.3 Chloride 107 mmol/L 98-110 Carbon Dioxide 25 mmol/L 20-31 Calcium 9.5 mg/dL 8.6-10.4 Glucose 131 mg/dL High 65-99 25 Urea Nitrogen 19 mg/dL 7-25 Creatinine 0.86 mg/dL 0.60-0.93 26 BUN/Creatinine Ratio 22.3 High 6-22 Laboratory test finding 04/11/2016 [facility] Magnesium 2.1 mg/dL 1.5- 2.[address] [place] [address] [phone] Vitamin B12,Serum 486 pg/mL 200-1100 Iron,Total 89 g/dL 45-160 BMP W/O Egfr 12/13/2015 [facility] Sodium 142 mmol/L 135-[address] [place] [address] [phone] Potassium 4.5 mmol/L 3.5-5.3 Chloride 106 mmol/L 98-110 Carbon Dioxide 27 mmol/L 19-30 Calcium 9.8 mg/dL 8.6-10.4 Glucose 112 mg/dL High 65-99 27 Urea Nitrogen 20 mg/dL 7-25 Creatinine 0.79 mg/dL 0.60-0.93 28 BUN/Creatinine Ratio 25.8 High 6-22 Laboratory test 12/13/2015 [facility] Direct LDL 131 mg/dL High <130 [address] [place] [address] [phone] BMP W/O Egfr 06/02/2015 [facility] Sodium 141 mmol/L 135-146 [address] [facility] [place] [address] [phone] Potassium 4.2 mmol/L 3.5-5.3 Chloride 106 mmol/L 98-110 Carbon Dioxide 27 mmol/L 19-30 Calcium 9.5 mg/dL 8.6-10.4 Glucose 117 mg/dL High 65-99 30 Urea Nitrogen 16 mg/dL 7-25 Creatinine 0.83 mg/dL 0.60-0.93 31 BUN/Creatinine Ratio 19.5 6-22 Lipid Panel 06/02/2015 [facility] Cholesterol 202 mg/dL High 125-200 [address] [facility] [place] [address] [phone] HDL Cholesterol 31 mg/dL Low > Or=46 Cholesterol/HDL Ratio 6.5 High < Or=5.0 LDL Chol,Calculated 128 mg/dL <130 32 Triglycerides 217 mg/dL High <150 Non-HDL Cholesterol 171 mg/dL High 33 CBC W/ Diff & PLT 06/02/2015 [facility] WBC 6.0 thous/L 3.8-10.8 [address] [facility] [place] [address] [phone] RBC 5.02 mill/L 3.80-5.10 Hemoglobin 14.4 g/dL 11.7-15.5 Hematocrit 43.5 % 35.0-45.0 MCV 86.5 FL 80.0-100.0 MCH 28.6 pg 27.0-33.0 MCHC 33.0 g/dL 32.0-36.0 RDW 12.9 % 11.0-15.0 Platelet Count 185 thous/L 140-400 Platelet Sufficiency PENDING MPV 7.9 FL 7.5-11.5 Neutrophils,Absolute 3440 cells/L [phone] Bands,Absolute PENDING Metamyelocytes,Absolute PENDING Myelocytes,Absolute PENDING Promyelocytes,Absolute [...] Direct LDL 115 mg/dL <130 35 [address] [place] [address] [phone] Cholesterol 183 mg/dL 125-200 Glucose 111 mg/dL High 65-99 36 Laboratory test finding 06/08/2014 [facility] Direct LDL 114 mg/dL <130 37 [address] [place] [address] [phone] Cholesterol 190 mg/dL 125-200 Glucose 102 mg/dL High 65-99 38 BMP W/O Egfr 12/01/2013 [facility] Sodium 143 mmol/L 135-146 6 [place] [address] [phone] Potassium 4.3 mmol/L 3.5-5.3 Chloride 106 mmol/L 98-110 Carbon Dioxide 27 mmol/L 19-30 Calcium 9.8 mg/dL 8.6-10.4 Glucose 94 mg/dL 65-99 39 Urea Nitrogen 17 mg/dL 7-25 Creatinine 0.83 mg/dL 0.60-0.93 40 BUN/Creatinine Ratio 21.0 6-22 Lipid Panel 12/01/2013 [facility] Cholesterol 212 mg/dL High 125-[address] [place] [address] [phone] HDL Cholesterol 34 mg/dL Low > Or=46 Cholesterol/HDL Ratio 6.2 High < Or=5.0 LDL Chol,Calculated 137 mg/dL High <130 41 Triglycerides 204 mg/dL High <150 Non-HDL Cholesterol 178 mg/dL High 42 CBC W/ Diff & PLT 12/01/2013 [facility] WBC 6.8 thous/L 3.8-10.[address] [place] [address] [phone] RBC 5.16 mill/L High 3.80-5.10 Hemoglobin 15.2 g/dL 11.7-15.5 Hematocrit 44.5 % 35.0-45.0 MCV 86.3 FL 80.0-100.0 MCH 29.4 pg 27.0-33.0 MCHC 34.1 g/dL 32.0-36.0 RDW 13.0 % 11.0-15.0 Platelet Count 190 thous/L 140-400 Neutrophils,Absolute 3890 cells/L [phone] Lymphocytes,Absolute 2250 cells/L [phone] Monocytes,Absolute 410 cells/L 200-950 Eosinophils,Absolute 200 cells/L 15-500 Basophils,Absolute 20 cells/L 0-200 Total Neutrophils,% 57 % Not Established Total Lymphocytes,% 33 % Not Established Monocytes,% 6 % Not Established Eosinophils,% 3 % Not Established Basophils,% 0 % Not Established [facility] 12/01/2013 [facility] Vitamin 19 ng/mL Low 30-100 25-Hydroxy D [address] D,25-Oh,Total (D2,D3) LC/MS [place], [place] [id number] [phone] Vitamin D,25-Oh,D3 19 ng/mL Vitamin D,25-Oh,D2 <4 ng/mL 43 BMP W/O Egfr 06/11/2013 [facility] Sodium 142 mmol/L 135-[address] [place] [address] [phone] Potassium 4.1 mmol/L 3.5-5.3 Chloride 105 mmol/L 98-110 Carbon Dioxide 27 mmol/L 19-30 Calcium 9.7 mg/dL 8.6-10.4 Glucose 109 mg/dL High 65-99 44 Urea Nitrogen 15 mg/dL 7-25 Creatinine 0.83 mg/dL 0.60-0.93 45 BUN/Creatinine Ratio 17.8 6-22 Laboratory test 03/10/2013 [facility] Glucose 93 mg/dL 65-99 [address] [place] [address] [phone] Laboratory test 12/02/2012 [facility] Direct LDL 119 mg/dL <130 [address] [place] [address] [phone] BMP W/O Egfr 12/02/2012 [facility] Sodium 143 mmol/L 135-[address] [place], [place] [address] [phone] Potassium 4.0 mmol/L 3.5-5.3 Chloride 105 mmol/L 98-110 Carbon Dioxide 29 mmol/L 19-30 Calcium 9.4 mg/dL 8.6-10.4 Glucose 107 mg/dL High 65-99 48 Urea Nitrogen 20 mg/dL 7-25 Creatinine 0.81 mg/dL 0.60-0.93 49 BUN/Creatinine Ratio 24.4 High 6-22 Laboratory 06/03/2012 [facility] LDL 142 High <130 50 test finding [address] Cholesterol,Direct mg/dL [place], [place] [address] [phone] Basic 06/03/2012 [facility] Sodium 144 135-[address] mmol/[place] [address] [phone] Potassium 4.5 mmol/L 3.5-5.3 Chloride 108 mmol/L 98-110 Carbon Dioxide 28 mmol/L 21-33 Calcium 9.5 mg/dL 8.6-10.4 Glucose 96 mg/dL 65-99 51 Urea Nitrogen 14 mg/dL 7-25 Creatinine 0.83 mg/dL 0.60-0.93 52 BUN/Creatinine Ratio 17.3 6-22 Egfr Non-Afr. Kuwaiti 70 ML/MIN/1.73M2 > Or=60 Egfr 82 ML/MIN/1.73M2 > Or=60 Laboratory 07/26/2011 [facility] LDL Cholesterol,Direct 90 mg/dL <130 53 test finding [address] [place] [address] [phone] Basic 07/26/2011 [facility] Sodium 143 135-[address] mmol/[place] [address] [phone] Potassium 4.2 mmol/L 3.5-5.3 Chloride 107 mmol/L 98-110 Carbon Dioxide 28 mmol/L 21-33 Calcium 9.1 mg/dL 8.6-10.2 Glucose 102 mg/dL High 65-99 54 Urea Nitrogen 17 mg/dL 7-25 Creatinine 0.85 mg/dL 0.63-1.22 BUN/Creatinine Ratio 19.6 6-22 Egfr Non-Afr. Kuwaiti 69 ML/MIN/1.73M2 > Or=60 Egfr 80 ML/MIN/1.73M2 > Or=60 Basic Metabolic Panel 05/26/2011 [facility] Sodium 140 mmol/L 135-522 06 [address] [place] [address] [phone] Potassium 4.1 mmol/L 3.5-5.0 Chloride 105 mmol/L 101-111 Co2 (Carbon Dioxide) 29.0 mmol/L 22-32 Anion Gap 6.0 mmol/L 2-11 56 Glucose 106 mg/dL High 70-100 BUN 11 mg/dL 6-24 Creatinine 0.9 mg/dL 0.50-1.40 One Over Creatinine 1.11 BUN/Creatinine Ratio 12.2 8-20 Calcium 9.7 mg/dL 8.1-9.9 eGFR Non- 61.7 > 60 eGFR 79.4 > 60 57 Type And Screen 05/26/2011 [facility] Patient Blood Type A POSITIVE [address] [place] [address] [phone] Antibody Screen NEGATIVE Specimen Discard Date 06/09/11 58 Laboratory test 05/26/2011 [facility] PTT (Aptt) 26.0 25.15- 38.[address] [place] [address] [phone] Protime 05/26/2011 [facility] Inr 0.98 0.82-1.[address] [place] [address] [phone] Protime 11.6 SEC 10.2-14.8 60 CBC Auto Diff 05/26/2011 [facility] White Blood Count 5.8 CUMM 4.8-10.[address] [facility] [place] [place] [address] [phone] Red Cell Count 5.03 CUMM 4.2-5.4 Hemoglobin [...] [facility] Sodium 144 mmol/L 135-[address] [place] [address] [phone] Potassium 4.8 mmol/L 3.5-5.3 Chloride 109 mmol/L 98-110 Carbon Dioxide 28 mmol/L 21-33 Calcium 9.4 mg/dL 8.6-10.2 Glucose 106 mg/dL High 65-99 62 Urea Nitrogen 16 mg/dL 7-25 Creatinine 0.83 mg/dL 0.63-1.22 BUN/Creatinine Ratio 19.3 6-22 Egfr Non-Afr. Kuwaiti 71 ML/MIN/1.73M2 > Or=60 Egfr 82 ML/MIN/1.73M2 > Or=60 Laboratory test finding 04/21/2011 [facility] CK 71 U /L 26-[address] [place] [address] [phone] Troponin-I < 0.02 ng/mL 0.00-0.50 64 Comprehensive 04/21/2011 [facility] Glucose 103 mg/ dL 76-115 Metabolic Panel [address] [place] [address] [phone] BUN 15 mg/dL 5-23 Creatinine 0.9 mg/dL [...] Phosphatase 59 U/L 50-136 LDL Cholesterol 04/21/2011 [facility] Cholesterol 164 mg/dL 120-[address] [place] [address] [phone] Triglycerides 160 mg/dL 16-231 HDL Cholesterol 28 mg/dL Low 29-83 LDL-Cholesterol 104 mg/dL 62-185 CBC W/Automated 04/21/2011 [facility] White Blood 8.7 K/uL 3.1-10.[address] [place] [address] [phone] Red Blood Count 5.05 M/uL 3.90-5.40 Hemoglobin 15.1 gm/dL 11.6-15.8 Hematocrit 43.2 % 36.0-46.1 Mean Cell Volume 85.5 fl 80.9-99.0 Mean Corpuscular HGB 29.9 pg 25.9-32.7 Mean Corpuscular HGB Conc 35.0 g/dL High 30.8-34.3 Platelet Count 209 K/uL 155-360 Red Cell Distri Width %CV 12.5 % 11.7-14.4 Mean Platelet Volume 9.6 fL 8.9-12.4 Neut% 64.2 % 40.4-72.8 Lymph % 24.3 % 17.0-46.1 Evans % 10.2 % 4.3-13.2 Eo% 1.0 % 0.0-6.6 Bas% 0.3 % 0.0-1.1 Neut# 5.61 K/uL 1.0-7.0 Lymph # 2.12 K/uL 0.8-3.4 Evans # 0.89 K/uL 0.3-0.9 Eos # 0.09 K/uL 0.0-0.5 Baso # 0.03 K/uL 0.0-0.1 Red Cell Distri Width SD 37.6 fl 3-47 Laboratory test 04/21/2011 [facility] Sedimentation Rate 6 mm/hr 0-30 [address] [place] [address] [phone] Laboratory test 04/21/2011 [facility] CK 73 U/L 26 -190 [address] [place] [address] [phone] Troponin-I < 0.02 ng/mL 0.00-0.50 68 Protime 04/21/2011 [facility] Protime 13.7 seconds 12.2-15.[address] [place] [address] [phone] Inr 1.0 0.9-1.1 69 Laboratory test 04/21/2011 [facility] Act Partial 27.4 seconds 23.4-37.4 [address] [place] [address] [phone] Basic Metabolic 04/20/2011 [facility] Glucose 103 mg/ dL 76-[address] [place] [address] [phone] BUN 13 mg/dL 5-23 Creatinine 0.7 mg/dL 0.5-1.4 Glom Filtration Rate, Estimate >60 mL/min >60 If >60 mL/min >60 71 BUN/Creat 18.5 ratio Sodium 142 mmol/L 136-145 Potassium 3.8 mmol/L 3.5-5.1 Chloride 105 mmol/L 98-107 Carbon Dioxide 27 mEq/L 18-29 Anion Gap 14 mEq/L 8-16 Calcium 10.2 mg/dL High 8.5-10.1 Laboratory test finding 04/20/2011 [facility] CK 91 U /L 26-[address] [place] [address] [phone] Troponin-I < 0.02 ng/mL 0.00-0.50 73 CBC W/Automated 04/20/2011 [facility] White Blood 6.5 K/uL 3.1-10.[address] [place] [address] [phone] Red Blood Count 5.35 M/uL 3.90-5.40 Hemoglobin 16.0 gm/dL High 11.6-15.8 Hematocrit 44.9 % 36.0-46.1 Mean Cell Volume 83.9 fl 80.9-99.0 Mean Corpuscular HGB 29.9 pg 25.9-32.7 Mean Corpuscular HGB Conc 35.6 g/dL High 30.8-34.3 Platelet Count 204 K/uL 155-360 Red Cell Distri Width %CV 12.3 % 11.7-14.4 Mean Platelet Volume 9.5 fL 8.9-12.4 Neut% 55.2 % 40.4-72.8 Lymph % 32.5 % 17.0-46.1 Evans % 10.9 % 4.3-13.2 Eo% 1.1 % 0.0-6.6 Bas% 0.3 % 0.0-1.1 Neut# 3.58 K/uL 1.0-7.0 Lymph # 2.11 K/uL 0.8-3.4 Evans # 0.71 K/uL 0.3-0.9 Eos # 0.07 K/uL 0.0-0.5 Baso # 0.02 K/uL 0.0-0.1 Red Cell Distri Width SD 36.9 fl 3-47 Basic Metabolic Panel 11/07/2010 [facility] Sodium 143 mmol/L 135-[address] [place] [address] [phone] Potassium 4.2 mmol/L 3.5-5.3 Chloride 105 mmol/L 98-110 Carbon Dioxide 28 mmol/L 21-33 Calcium 9.2 mg/dL 8.6-10.2 Glucose 101 mg/dL High 65-99 74 Urea Nitrogen 12 mg/dL 7-25 Creatinine 0.80 mg/dL 0.63-1.22 BUN/Creatinine Ratio 15.3 6-22 Egfr Non-Afr. Kuwaiti 75 ML/MIN/1.73M2 > Or=60 Egfr 87 ML/MIN/1.73M2 > Or=60 CBC W/ Diff & PLT 09/08/2010 [facility] WBC 6.0 thous/L 3.8-10.8 [address] [facility]. [place], [place] [id number] [phone] RBC 5.12 mill/L High 3.80-5.10 Hemoglobin 15.7 g/dL High 11.7-15.5 Hematocrit 46.0 % High 35.0-45.0 MCV 89.9 FL 80.0-100.0 MCH 30.6 pg 27.0-33.0 MCHC 34.0 g/dL 32.0-36.0 RDW 12.4 % 11.0-15.0 Platelet Count 198 thous/L 140-400 Platelet Sufficiency NORMAL Normal Neutrophils,Absolute 3770 cells/L [phone] Bands,Absolute DNR cells/L 0-750 Metamyelocytes,Absolute DNR cells/L [...] [facility] Sodium 142 mmol/L 135-[address] [place] [address] [phone] Potassium 4.1 mmol/L 3.5-5.3 Chloride 106 mmol/L 98-110 Carbon Dioxide 27 mmol/L 21-33 Calcium 9.7 mg/dL 8.6-10.2 Glucose 86 mg/dL 65-99 75 Urea Nitrogen 16 mg/dL 7-25 Creatinine 0.70 mg/dL 0.63-1.22 BUN/Creatinine Ratio 23.0 High 6-22 Egfr Non-Afr. [place]i >60 ML/MIN/1.73M2 > Or=60 Egfr >60 ML/MIN/1.73M2 > Or=60 Basic Metabolic Panel 08/03/2010 [facility] Sodium 143 mmol/L 135-[address] [place] [address] [phone] Potassium 4.2 mmol/L 3.5-5.3 Chloride 107 mmol/L 98-110 Carbon Dioxide 27 mmol/L 21-33 Calcium 9.2 mg/dL 8.6-10.2 Glucose 103 mg/dL High 65-99 76 Urea Nitrogen 15 mg/dL 7-25 Creatinine 0.83 mg/dL 0.63-1.22 BUN/Creatinine Ratio 18.6 6-22 Egfr Non-Afr. [place]i >60 ML/MIN/1.73M2 > Or=60 Egfr >60 ML/MIN/1.73M2 > Or=60 Lipid Panel 01/27/2010 [facility] Cholesterol 197 mg/dL 125-[address] [place] [address] [phone] HDL Cholesterol 32 mg/dL Low > Or=46 Triglycerides 279 mg/dL High <150 Cholesterol/HDL Ratio 6.2 High < Or=5.0 LDL Chol,Calculated 109 mg/dL <130 78 Basic Metabolic Panel 01/27/2010 [facility] Sodium 143 mmol/L 135-[address] [place] [address] [phone] Potassium 4.2 mmol/L 3.5-5.3 Chloride 105 mmol/L 98-110 Carbon Dioxide 30 mmol/L 21-33 Calcium 9.6 mg/dL 8.6-10.2 Glucose 97 mg/dL 65-99 79 Urea Nitrogen 14 mg/dL 7-25 Creatinine 0.78 mg/dL 0.60-1.18 BUN/Creatinine Ratio 17.8 6-22 Egfr Non-Afr. [place]i >60 ML/MIN/1.73M2 > Or=60 Egfr >60 ML/MIN/1.73M2 > Or=60 Basic Metabolic Panel 07/20/2009 [facility] Sodium 142 mmol/L 135-146 [address] [place] [address] [phone] Potassium 4.3 mmol/L 3.5-5.3 Chloride 105 mmol/L 98-110 Carbon Dioxide 27 mmol/L 21-33 Calcium 9.0 mg/dL 8.6-10.2 Glucose 93 mg/dL 65-99 80 Urea Nitrogen 15 mg/dL 7-25 Creatinine 0.75 mg/dL 0.60-1.18 BUN/Creatinine Ratio 20.0 6-22 Egfr Non-Afr. Kuwaiti >60 ML/MIN/1.73M2 > Or=60 Egfr >60 ML/MIN/1.73M2 > Or=60 Lipid Panel 07/20/2009 [facility] Cholesterol 187 mg/dL 125-200 [address] [place] [address] [phone] HDL Cholesterol 28 mg/dL Low > Or=46 Triglycerides 289 mg/dL High <150 Cholesterol/HDL Ratio 6.7 High < Or=5.0 LDL Chol,Calculated 101 mg/dL <130 81 CBC W/ Diff & PLT 07/20/2009 [facility] WBC 6.6 thous/L 3.8-10.8 6 [place] [address] [phone] RBC 5.17 mill/L High 3.80-5.10 Hemoglobin 16.0 g/dL High 11.7-15.5 Hematocrit 45.0 % 35.0-45.0 MCV 87.0 FL 80.0-100.0 MCH 30.9 pg 27.0-33.0 MCHC 35.5 g/dL 32.0-36.0 RDW 12.5 % 11.0-15.0 Platelet Count 199 thous/L 140-400 Platelet Sufficiency NORMAL Normal Neutrophils,Absolute 3720 cells/L 3759-4667 Bands,Absolute DNR cells/L 0-750 Metamyelocytes,Absolute DNR cells/L [...] Culture,Urine,Voided 01/28/2009 [facility] URINE-VOIDED [address] [place] [address] [phone] Preliminary Report DNR Interim Report DNR Final Report (SEE NOTE) 82 Organism #1 DNR Organism #2 DNR Organism #3 DNR Organism #4 DNR 4399 DNR Lipid Panel 01/14/2009 [facility] Cholesterol 188 mg/dL 125-200 6 [place] [address] [phone] HDL Cholesterol 32 mg/dL Low > Or=46 Cholesterol/HDL Ratio 5.9 High < Or=5.0 LDL Chol,Calculated 111 mg/dL <130 83 Triglycerides 223 mg/dL High <150 CBC W/ Diff & PLT 07/09/2008 [facility] WBC 6.1 thous/L 3.8-10.8 6 [place] [address] [phone] RBC 5.08 mill/L 3.80-5.10 Hemoglobin 15.0 g/dL 11.7-15.5 Hematocrit 43.5 % 35.0-45.0 MCV 85.6 FL 80.0-100.0 MCH 29.4 pg 27.0-33.0 MCHC 34.4 g/dL 32.0-36.0 RDW 12.4 % 11.0-15.0 Platelet Count 199 thous/L 140-400 Platelet Sufficiency NORMAL Normal Neutrophils,Absolute 3310 cells/L 5255-9152 Bands,Absolute DNR cells/L 0-750 Metamyelocytes,Absolute DNR cells/L [...] [facility] Sodium 145 mmol/L 135-146 [address] [place] [address] [phone] Potassium 4.1 mmol/L 3.5-5.3 Chloride 107 mmol/L 98-110 Carbon Dioxide 29 mmol/L 21-33 Calcium 9.5 mg/dL 8.6-10.2 Glucose 99 mg/dL 65-99 84 Urea Nitrogen 15 mg/dL 7-25 Creatinine 0.80 mg/dL 0.50-1.20 BUN/Creatinine Ratio 18.8 6-22 Egfr Non-Afr. Kuwaiti >60 ML/MIN/1.73M2 > Or=60 Egfr >60 ML/MIN/1.73M2 > Or=60 Lipid Panel 07/09/2008 [facility] Cholesterol 181 mg/dL 125-[address] [place], [place] [id number] [phone] HDL Cholesterol 31 mg/dL Low > Or=46 Cholesterol/HDL Ratio 5.8 High < Or=5.0 LDL Chol,Calculated 91 mg/dL <130 85 Triglycerides 294 mg/dL High <150 Laboratory test 07/09/2008 [facility] TSH,3RD 4.04 mU/L 0.40-4.[address] [place] [address] [phone] T4,Free 1.3 ng/dL 0.8-1.8 Laboratory test finding 03/13/2008 [facility] CK 63 U /L 26-[address] [place] [address] [phone] Troponin-I 0.0 NG/ML 0.0-0.6 87 Laboratory test 03/13/2008 [facility] Thyroid Stim 3.77 0.49-4.67 [address] Hormone uIU/[place] [address] [phone] Basic Metabolic 03/13/2008 [facility] Glucose 119 mg/ dL High 76-[address] [place] [address] [phone] BUN 11 mg/dL 5-23 Estimated GFR (SEE NOTE) Creatinine 1.0 mg/dL 0.5-1.4 BUN/Creat 11.0 Sodium 143 mEq/L 136-145 Potassium 3.3 mEq/L Low 3.5-5.1 Chloride 105 mEq/L 98-107 Carbon Dioxide 32 mEq/L 21-32 Anion Gap 9 mEq/L 8-16 Calcium 9.1 mg/dL 8.5-10.1 Laboratory test 03/13/2008 [facility] Magnesium 1.9 mg/dL 1.7-2.[address] [place] [address] [phone] LDL Cholesterol 03/13/2008 [facility] Cholesterol 161 mg/dL 120-[address] [place], [place] [id number] [phone] Triglycerides 230 mg/dL High 0-210 HDL Cholesterol 29 mg/dL Low 32-96 LDL-Cholesterol 86 mg/dL 62-185 Laboratory test finding 03/13/2008 [facility] CK 68 U /L 26-[address] [place] [address] [phone] Troponin-I 0.0 NG/ML 0.0-0.6 89 CBC 03/13/2008 [facility] White Blood Count 8.8 K/uL 3.1-10.[address] [place] [address] [phone] Red Blood Count 4.94 M/uL 3.90-5.40 Hemoglobin 14.5 gm/dL 11.6-15.8 Hematocrit 42.2 % 36.0-46.1 Mean Cell Volume 85.4 fl 80.9-99.0 Mean Corpuscular HGB 29.4 pg 25.9-32.7 Mean Corpuscular HGB Conc 34.4 g/dL High 30.8-34.3 Platelet Count 210 K/uL 155-360 Red Cell Distri Width %CV 12.3 % 11.7-14.4 Mean Platelet Volume 9.4 fL 8.9-12.4 Protime 03/13/2008 [facility] Protime 13.2 seconds 12.1-14.[address] [place] [address] [phone] Inr 1.0 0.9-1.1 90 Laboratory test 03/13/2008 [facility] Act Partial 27.9 seconds 22.0-36.[address] [place] [address] [phone] Basic Metabolic 01/16/2008 [facility] Sodium 142 mmol/L 135-[address] [place] [address] [phone] Potassium 4.4 mmol/L 3.5-5.3 Chloride 105 mmol/L 98-110 Carbon Dioxide 29 mmol/L 21-33 Calcium 9.6 mg/dL 8.6-10.2 Glucose 101 mg/dL High 65-99 92 Urea Nitrogen 17 mg/dL 7-25 Creatinine 0.83 mg/dL 0.50-1.20 BUN/Creatinine Ratio 20.0 6-22 Egfr Non-Afr. Kuwaiti >60 ML/MIN/1. > Or=60 Egfr >60 ML/MIN/1. > Or=60 CBC W/ Diff & PLT 01/16/2008 [facility] WBC 7.1 thous/L 3.8-10.8 [address] [place] [address] [phone] RBC 5.33 mill/L High 3.80-5.10 Hemoglobin 16.0 g/dL High 11.7-15.5 Hematocrit 46.3 % High 35.0-45.0 MCV 86.9 FL 80.0-100.0 MCH 30.1 pg 27.0-33.0 MCHC 34.6 g/dL 32.0-36.0 RDW 12.6 % 11.0-15.0 Platelet Count 221 thous/L 140-400 Platelet Sufficiency NORMAL Normal Neutrophils,Absolute 3880 cells/L 3441-0924 Bands,Absolute DNR cells/L 0-750 Metamyelocytes,Absolute DNR cells/L [...] Lab Cholesterol 204 mg/dL High 125-200 [address] [place] [facility] [place] [address] [phone] HDL Cholesterol 34 mg/dL Low > Or=40 93 Cholesterol/HDL Ratio 6.0 High < Or=5.0 LDL Chol,Calculated 103 mg/dL <130 94 Triglycerides 334 mg/dL High <150 Basic Metabolic Panel 07/18/2007 [facility] Sodium 143 mmol/L 135-146 6 [facility] [place] [address] [phone] Potassium 4.1 mmol/L 3.5-5.3 Chloride 106 mmol/L 98-110 Carbon Dioxide 27 mmol/L 21-33 Calcium 9.4 mg/dL 8.6-10.2 Glucose 102 mg/dL High 65-99 95 Urea Nitrogen 18 mg/dL 7-25 Creatinine 0.89 mg/dL 0.50-1.20 BUN/Creatinine Ratio 20.1 6-22 Egfr Non-Afr. Kuwaiti >60 ML/MIN/1.7 > Or=60 Egfr >60 ML/MIN/1.7 > Or=60 CBC W/ Diff & PLT 07/18/2007 [facility] WBC 5.8 thous/L 3.8-10.8 [address] [facility] [place] [address] [phone] RBC 5.25 mill/L High 3.80-5.10 Hemoglobin 16.0 g/dL High 11.7-15.5 Hematocrit 45.8 % High 35.0-45.0 MCV 87.3 FL 80.0-100.0 MCH 30.5 pg 27.0-33.0 MCHC 34.9 g/dL 32.0-36.0 RDW 12.2 % 11.0-15.0 Platelet Count 202 thous/L 140-400 Platelet Sufficiency NORMAL Normal Neutrophils,Absolute 3260 cells/L 8857-6770 Bands,Absolute DNR cells/L 0-750 Metamyelocytes,Absolute DNR cells/L [...] [facility] Cholesterol 184 mg/dL 125-[address] [place] [address] [phone] HDL Cholesterol 29 mg/dL Low > Or=40 96 Cholesterol/HDL Ratio 6.3 High < Or=5.0 LDL Chol,Calculated 89 mg/dL <130 97 Triglycerides 329 mg/dL High <150 Laboratory test 07/18/2007 [facility] TSH,3RD 2.64 mU/L 0.40-4.50 [address] [place] [address] [phone] T4,Free 1.3 ng/dL 0.8-1.8 Basic Metabolic Panel 01/10/2007 [facility] Sodium 142 mmol/L 135-[address] [place] [address] [phone] Potassium 4.0 mmol/L 3.5-5.3 Chloride 105 mmol/L 98-110 Carbon Dioxide 29 mmol/L 21-33 Calcium 9.7 mg/dL 8.6-10.2 Glucose 105 mg/dL High 65-99 99 Urea Nitrogen 13 mg/dL 7-25 Creatinine 0.9 mg/dL 0.5-1.2 BUN/Creatinine Ratio 14.6 6-22 GFR Estimated >60 ML/MIN/1.7 >59 100 Lipid Panel 01/10/2007 [facility] Cholesterol 197 mg/dL 125-[address] [place] [address] [phone] HDL Cholesterol 35 mg/dL Low > Or=40 101 Cholesterol/HDL Ratio 5.6 High < Or=5.0 LDL Chol,Calculated 114 mg/dL <130 102 Triglycerides 239 mg/dL High <150 Lipid Panel 07/23/2006 [facility] Cholesterol 197 mg/dL <200 6 [place] [address] [phone] HDL Cholesterol 33 mg/dL Low >40 103 Cholesterol/HDL Ratio 6.0 High <4.4 LDL Chol,Calculated 93 mg/dL <130 104 Triglycerides 355 mg/dL High <150 Comp Metabolic Panel 07/23/2006 [facility] Sodium 142 mmol/L 135-146 6 [place] [address] [phone] Potassium 4.8 mmol/L 3.5-5.3 Chloride 106 mmol/L [...] [facility] WBC 6.3 thous/L 3.8-10.8 6 [place] [address] [phone] RBC 5.27 mill/L High 3.80-5.10 Hemoglobin 15.7 g/dL High 11.7-15.5 Hematocrit 44.8 % 35.0-45.0 MCV 85.0 FL 80.0-100.0 MCH 29.8 pg 27.0-33.0 MCHC 35.0 g/dL 32.0-36.0 RDW 12.4 % 11.0-15.0 Platelet Count 211 thous/L 140-400 Platelet Sufficiency NORMAL Normal Neutrophils,Absolute 3380 cells/L 5698-4837 Bands,Absolute DNR cells/L 0-750 Metamyelocytes,Absolute DNR cells/L [...] [facility] TSH 2.06 mU/L 0.40-5.50 6 [place] [address] [phone] T4,Free 1.3 ng/dL 0.8-1.8 Lipid Panel 07/20/2005 [facility] Cholesterol 189 mg/dL <200 6 [place] [address] [phone] HDL Cholesterol 29 mg/dL Low >40 107 Cholesterol/HDL Ratio 6.5 High <4.4 LDL Chol,Calculated 106 mg/dL <130 108 Triglycerides 270 mg/dL High <150 Laboratory test finding 07/20/2005 [facility] TSH 1.67 mU/L 0.40-5.50 6 [place] [address] [phone] CBC W/ Diff & PLT 07/20/2005 [facility] WBC 5.2 thous/L 3.8-10.8 6 [place] [address] [phone] RBC 5.23 mill/L High 3.80-5.10 Hemoglobin 15.8 g/dL High 11.7-15.5 Hematocrit 44.8 % 35.0-45.0 MCV 85.6 FL 80.0-100.0 MCH 30.3 pg 27.0-33.0 MCHC 35.3 g/dL 32.0-36.0 RDW 12.1 % 11.0-15.0 Platelet Count 213 thous/L 140-400 Platelet Sufficiency NORMAL Neutrophils,Absolute 2790 cells/L 5771-1616 Bands,Absolute DNR cells/L 0-750 Metamyelocytes,Absolute DNR cells/L [...] [facility] Sodium 143 mmol/L 135-[address] [place] [address] [phone] Potassium 4.1 mmol/L 3.5-5.3 Chloride 107 mmol/L 98-110 Carbon Dioxide 24 mmol/L 21-33 Calcium 9.3 mg/dL 8.5-10.4 Glucose 100 mg/dL High 65-99 109 Urea Nitrogen 17 mg/dL 7-30 Creatinine 0.9 mg/dL 0.5-1.2 BUN/Creatinine Ratio 19.1 6-25 GFR Estimated >60 ML/MIN/1.7 >59 110 1 SEE RESULT BELOW Name: CAROLA CHAMPION : [address]: Eliud Teran MD Acct: [id number] Unit: [id number] AGE: 77 Location: ENDO Re01/15/18 SEX: F Status: REG REF SPEC: [id number] MARLEE: 01/15/18-12[address] [facility] [address]: Eliud Teran MD REQ: [id number] RECD: 01/15/18 STATUS: MOSES ANGLIN DR: Suri [...] CONTINUED ON NEXT PAGE DEPARTMENT OF PATHOLOGY, [address] [place] [address] James Barnes M.D. Director [facility] # [id number] RUN DATE: 01/18/18 [facility] LAB LIVE PAGE 2 Patient: CAROLA CHAMPION Ajay [id number] (Continued) GROSS DESCRIPTION (Continued) GROSS DESCRIPTION (Continued) two sepulveda-pink irregular soft tissue fragments averaging 0.4 x 0.3 x 0.2 cm which are submitted entirely in one cassette. Signed by and Reported on: Carola Corcoran MD 01/16/18 1249 END OF REPORT DEPARTMENT OF PATHOLOGY, [address] [place] [address] James Barnes M.D. Director [facility] # [id number] 2 Relative blood cell counts (%) should be compared with absolute cell counts (cells/mcL). Relative counts may not be clinically meaningful if the absolute count of one or more cell type is decreased. Reference ranges for relative cell counts derived from: A Manual of Laboratory and Diagnostics Tests, 9th Ed, Claudia Алекс[employer], 2015. Pediatric Reference Intervals, 7th Ed, [facility] [employer], 2011. 3 GLUCOSE REFERENCE RANGE BASED ON FASTING SPECIMEN. 4 The upper reference limit for Creatinine is approximately 13% higher for people identified as -Kuwaiti. 5 LDL-C is now calculated using the Marvin-Nigel calculation, which is a validated novel method providing better accuracy than the Friedewald equation in the estimation of LDL-C. Marvin COLMENARES et al.CHAVO.2013;310(19):5235-7229 (http://education.Nugg-it.com/faq/EPW943) Desirable range <100 mg/dL for patients with [...] GLYCEMIC GOAL 8 SEE RESULT BELOW Name: JOSECAROLA SANTIAGO : [address]: Eliud Teran MD Acct: [id number] Unit: [id number] AGE: 77 Location: [facility] Re07/18/17 SEX: F Status: DEP REF SPEC: [id number] MARLEE: 07/18/17-[address]: Eliud Teran MD REQ: [id number] RECD: 07/18/17 STATUS: MOSES ANGLIN DR: Suri Gauss MD _ ORDERED: LEVEL 4/4 FINAL DIAGNOSIS [...] performed at Main Lab DEPARTMENT OF PATHOLOGY, [address] [place] [address] James Barnes M.D. Director [facility] # [id number] RUN DATE: 07/19/17 [facility] LAB LIVE PAGE 2 Patient: CAROLA CHAMPION [id number] (Continued) GROSS DESCRIPTION (Continued) GROSS DESCRIPTION (Continued) [...] performed at Main Lab DEPARTMENT OF PATHOLOGY, [address] [place] [address] James Barnes M.D. Director [facility] # [id number] 9 SEE RESULT BELOW Name: CAROLA CHAMPION : [address]: Eliud Teran MD Acct: [id number] Unit: [id number] AGE: 77 Location: ENDO Re05/22/17 SEX: F Status: DEP REF SPEC: [id number] MARLEE: 05/22/17 [facility] [address]: Eliud Teran MD REQ: [id number] RECD: 05/22/17 STATUS: MOSES ANGLIN DR: Suri [...] performed at Main Lab DEPARTMENT OF PATHOLOGY, [address] [place] [address] James Barnes M.D. Director [facility] # [id number] 10 GLUCOSE REFERENCE RANGE BASED ON FASTING SPECIMEN. 11 The upper reference limit for Creatinine is approximately 13% higher for people identified as -Kuwaiti. 12 For someone without known diabetes, a [...] approximately 13% higher for people identified as -Kuwaiti. 22 Relative blood cell counts (%) should [...] approximately 13% higher for people identified as -Kuwaiti. 25 GLUCOSE REFERENCE RANGE BASED ON FASTING SPECIMEN. 26 The upper reference limit for Creatinine is approximately 13% higher for people identified as -Kuwaiti. 27 GLUCOSE REFERENCE RANGE BASED ON FASTING SPECIMEN. 28 The upper reference limit for Creatinine is approximately 13% higher for people identified as -Kuwaiti. 29 LDL-CHOLESTEROL RISK CATEGORY* GOAL VERY HIGH [...] approximately 13% higher for people identified as -Kuwaiti. 32 LDL-CHOLESTEROL RISK CATEGORY* GOAL VERY HIGH [...] approximately 13% higher for people identified as -Kuwaiti. 41 LDL-CHOLESTEROL RISK CATEGORY* GOAL VERY HIGH [...] more information on this test, go to http://Reacción[email or web address]/faq/25-OHVitaminD 44 GLUCOSE REFERENCE RANGE BASED ON FASTING SPECIMEN. 45 The upper reference limit for Creatinine is approximately 13% higher for people identified as -Kuwaiti. 46 GLUCOSE REFERENCE RANGE BASED ON FASTING [...] approximately 13% higher for people identified as -Kuwaiti. 50 LDL-CHOLESTEROL RISK CATEGORY* GOAL VERY HIGH [...] approximately 13% higher for people identified as -Kuwaiti. 53 LDL-CHOLESTEROL RISK CATEGORY* GOAL VERY HIGH [...] RANGE BASED ON FASTING SPECIMEN. 63 QUERY: @DailyBurn Pat ID: QUERY: @DailyBurn Req #: 64 0 - 0.5 ng/mL: [...] may be found at www.kdoqi.org. 66 QUERY: @DailyBurn Pat ID: QUERY: @EMR Req #: 67 QUERY: @DailyBurn Pat ID: QUERY: @DailyBurn Req #: 68 0 - 0.5 ng/mL: [...] NG/ML: CONSISTENT WITH MYOCARDIAL INJURY 88 Specimen: [id number] - TESTS: CBC, PT, PTT IS PATIENT [...] RACE, IF THE 0 PATIENT RACE IS -CHINESE, THE GFR ESTIMATE MUST BE MULTIPLIED BY [...] RACE, IF THE 6 PATIENT RACE IS -CHINESE, THE GFR ESTIMATE MUST BE MULTIPLIED BY [...] RACE, IF THE 0 PATIENT'S RACE IS -CHINESE, THE GFR ESTIMATE MUST BE MULTIPLIED BY A FACTOR OF 1.21. Procedures Date Code Description Status 10/17/2017 43281 Non-Invcorrotid/Comp /Bilat Study Completed 10/15/2017 24340 Echocardiography Completed 10/15/2017 40052 EKG-Tracing & Report Completed 12/21/2016 14511 Echocardiography Completed 12/20/2016 66053 EKG-Tracing & Report Completed 12/18/2016 92659 Non-Invcorrotid/Comp /Bilat Study Completed 12/14/2015 49212 EKG-Tracing & Report Completed 12/13/2015 58519 Holter Monitor Office Completed 12/09/2015 [id number] Bone Mineral Density Test Completed 12/09/2015 72670 Echocardiography Completed 12/09/2015 12306 Dxa Bone Density [employer] Vertebral Fracture Completed Assessment 12/07/2015 31628 Non-Invcorrotid/Comp /Bilat Study Completed 03/02/2015 90984 Holter Monitor Office Completed 11/26/2014 11723 Non-Invcorrotid/Comp /Bilat Study Completed 11/24/2014 23931 Echocardiography Completed 12/01/2013 18427 EKG-Tracing & Report Completed 11/27/2013 90961 Bone Density,Vertebral Fracture Completed 11/27/2013 69372 Bone Density Completed 11/25/2013 61658 Non-Invcorrotid/Comp /Bilat Study Completed 11/24/2013 28817 Echocardiography Completed 12/02/2012 53600 EKG-Tracing & Report Completed 04/26/2011 11328 EKG-Tracing & Report Completed 09/08/2010 55552 EKG-Tracing & Report Completed 01/31/2010 98993 Non-Invcorrotid/Comp /Bilat Study Completed 01/31/2010 49298 Echocardiography Completed 01/27/2010 74570 EKG-Tracing & Report Completed 01/14/2009 67404 EKG-Tracing & Report Completed 01/13/2009 41056 Echocardiography Completed 07/09/2008 75800 Non-Invcorrotid/Comp /Bilat Study Completed 07/18/2007 95958 Non-Invcorrotid/Comp /Bilat Study Completed 07/18/2007 26148 Doppler Color Flow Velocity Completed 07/18/2007 48753 Doppler/ECHO Completed 07/18/2007 27319 ECHO-2D W/Wo M-Mode Completed 07/18/2007 80409 EKG-Tracing & Report Completed 01/10/2007 55646 Bone Density,Vertebral Fracture Completed 01/10/2007 90955 Bone Density Completed 07/23/2006 63464 EKG-Tracing & Report Completed 09/25/2005 34053 Ear Lavage Completed 07/20/2005 81052 Doppler Color Flow Velocity Completed 07/20/2005 62380 Doppler/ECHO Completed 07/20/2005 62729 ECHO-2D W/Wo M-Mode Completed 07/20/2005 81083 EKG-Tracing & Report Completed 07/11/2004 21760 Bone Density Study Completed 07/04/2004 34053 Stress Test Interp/Report Only Completed 07/04/2004 33581 Stress Test Physician Supervision Completed 06/28/2004 02771 EKG-Tracing & Report Completed 06/24/2004 19188 Non-Invcorrotid/Comp /Bilat Study Completed 06/24/2004 15188 Doppler Color Flow Velocity Completed 06/24/2004 89616 Doppler/ECHO Completed 06/24/2004 26948 ECHO-2D W/Wo M-Mode Completed 11/15/2003 12755 EKG-Inter.& Hosp. Report Completed Encounters Type Date [...] Office Visit 11/13/2016 1:30p Main Office Suri Villavicencio S33.5xxA Sprain of M.D. ligaments of lumbar spine, initial encounter M48.06 Spinal stenosis, lumbar region Office Visit 09/26/2016 2:45p Main Office Suri Gauss, I11.9 Hypertensive heart M.D. disease without heart failure M48.06 Spinal stenosis, lumbar region Office Visit 09/12/2016 10:45a Main Office Suri Villavicencio, R10.30 Lower abdominal M.D. pain, unspecified [...] Office Visit 03/07/2016 2:30p Main Office Suri Villavicencio, M48.06 Spinal stenosis, M.D. lumbar region G25.81 [...] Trunk Office Visit 06/18/2013 11:00a Main Office Suri Villavicencio 402.10 Hypertensive Heart M.D. Disease Benign W/O Heart Failure 272.4 Hyperlipidemia Other Unspec 724.02 Spinal Stenosis Lumbar Region 790.21 Impaired Fasting Glucose 530.81 Esophageal Reflux V04.81 Need For Prophylactic Vaccination & Inoculation/Influenza Office Visit 03/17/2013 11:00a Main Office Suri Villavicencio 402.10 Hypertensive Heart M.D. Disease Benign W/O Heart Failure 272.4 Hyperlipidemia Other Unspec 724.02 Spinal Stenosis Lumbar Region Office Visit 12/16/2012 11:00a Main Office Suri Villavicencio, 272.4 Hyperlipidemia Other M.D. Unspec 402.10 Hypertensive Heart Disease Benign W/O Heart Failure 790.21 Impaired Fasting Glucose Office Visit 08/01/2012 12:00p Main Office Suri Villavicencio 847.2 Sprains & Strains M.D. Lumbar Office [...] Office Visit 10/19/2010 1:30p Main Office Suri Villavicencio 977.9 Poisoning By M.D. Medicinal Substance Unspec [...] Office Visit 05/23/2010 10:00a Main Office Suri Villavicencio, 402.10 Hypertensive Heart [...] Office Visit 05/23/2004 10:30a Main Office Suri Villavicencio 402.10 Hypertensive Heart M.D. Disease Benign W/O Heart Failure 272.40 Hyperlipidemia Office Visit 12/03/2003 1:00p Main Office Suri Villavicencio, 726.19 Shoulder Disorders Ashley Other Spec Office Visit 11/25/2003 3:00p Main Office Suri Villavicencio, 722.20 Herniated Disc Ashley 959.20 Shoulder, Arm Injury Office Visit 11/18/2003 3:00p Main Office Suri Villavicencio M.D. 719.47 Pain Joint Ankle & Foot Plan of Treatment 05/14/2018 - Suri Villavicencio M.D.E05.00 Thyrotoxicosis with diffuse goiter without thyrotoxic crisisComments:low dose beta ian started for tachycardia, she is travelling to [place] later this week, so will not be too aggresive in dose [id number] Tachycardia, unspecifiedComments:increase metoprolol to 25 mg [id number] Encounter for immunizationAllNew Medication:Metoprolol Succinate ER 25 mg - 1 by mouth every evening mdd 1
--- NOTE | 2018-07-16 07:49 | ED ---
Shortness of Breath - HPI Summary HPI Summary: Patient is a 78 y/o F w/ c/o SOB and difficulty lying in supine position. and daughter of patient are present in the room. Patient states that this morning she awoke with chest pain. Afterwards, as she went to get up, she states she "couldn't breathe". This prompted today's ED visit. In the room, patient reports breathing and chest pain has improved. Patient states that chest pain has been present for "quite a while" and claims that her PCP told her that this pain was caused by her breast plate pressing against her aorta. She notes that she experiences exacerbation of SOB when lying flat. Patient states she slept in a chair last night. Patient reports SOB has been present for "some time" and notes exacerbation in the past two days. Nonproductive cough is reported as well, but patient states that she feels congested. PMHx of blood clots, CHF, pulmonary edema is denied. 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 She denies upper back pain, recent weight gain, vomiting, and diarrhea. FMHx of blood clots is denied, FMHx of cardiac disease is endorsed. She states she is not on a water pill, only BP medication. Patient has goiter problem, states that she has appointment with Dr. Colorado on July 25. Fever, chills, erythema of eyes, sore throat, abdominal pain, nausea, dysuria, hematuria, myalgia, edema, rash and dizziness are not reported. On triage, pain is denied, lying down and exertion are reported to aggravate Sx. Home medications and allergies are reviewed. - History of Current Complaint Chief Complaint: EDGeneral Hx Obtained From: Patient Onset/Duration: Lasting Days - cough, two days, Lasting Weeks - patient reports chest pain and SOB for "a while", Resolved - SOB and chest pain are reported to have improved Current Severity: None Dyspnea At: Orthopena Aggrevating Factors: Other - exertion, lying flat Alleviating Factors: Nothing Associated Signs & Symptoms: Cough (Nonproductive) - Allergy/Home Medications Allergies/Adverse Reactions: Allergies Allergy/AdvReac Type Severity Reaction Status Date / Time diphenhydramine Allergy Intermediate See Comment Verified 07/16/18 06:48 cimetidine [From Tagamet] Allergy Diarrhea Verified 07/16/18 06:48 Sulfa (Sulfonamide Allergy Hives Verified 07/16/18 06:48 Antibiotics) PMH/Surg Hx/FS Hx/Imm Hx Endocrine/Hematology History: Denies: Hx Diabetes, Hx Thyroid Disease Cardiovascular History: Reports: Hx Hypertension Respiratory History: Denies: Hx Asthma, Hx Chronic Obstructive Pulmonary Disease (COPD) GI History: Denies: Hx Ulcer - Surgical History Surgery Procedure, Year, and Place: L4/L5 and L5/S1 Herniated Disc Repair,2011, [facility], Tubal Ligation Infectious Disease History: No Infectious Disease History: Denies: Hx Clostridium Difficile, Hx Hepatitis, Hx Human Immunodeficiency Virus (HIV), Hx of Known/Suspected MRSA, Hx Shingles, Hx Tuberculosis, Hx Known/ Suspected VRE, Hx Known/Suspected VRSA, History Other Infectious Disease, Traveled Outside the [place] in Last 30 Days - Family History Known Family History: Positive: Cardiac Disease - father with CAD, HTN DM, Hypertension, Diabetes Negative: Blood Disorder - No FMHx of blood clots - Social History Alcohol Use: None Substance Use Type: Reports: None Smoking Status (MU): Never Smoked Tobacco Review of Systems Positive: Other - NEGATIVE - RECENT WEIGHT GAIN . Negative: Fever, Chills Negative: Erythema Negative: Sore Throat Positive: Chest Pain Positive: Shortness Of Breath, Cough Negative: Abdominal Pain, Vomiting, Diarrhea, Nausea Negative: dysuria, hematuria Positive: Other - NEGATIVE - UPPER BACK PAIN . Negative: Myalgia, Edema Negative: Rash Neurological: Other - NEGATIVE - DIZZINESS All Other Systems Reviewed And Are Negative: Yes Physical Exam - Summary Physical Exam Summary: Constitutional: Well-developed, Well-nourished, Alert. (-) Distressed Skin: Warm, Dry HENT: Normocephalic; Atraumatic Eyes: Conjunctiva normal Neck: Musculoskeletal ROM normal neck. (-) JVD, (-) Stridor, (-) Tracheal deviation Cardio: Rhythm regular, rate normal, Heart sounds normal; Intact distal pulses; The pedal pulses are 2+ and symmetric. Radial pulses are 2+ and symmetric. (-) Murmur Pulmonary/Chest wall: Effort normal. (-) Respiratory distress, (-) Wheezes, (-) Rales (+) Crackles in left lower lung field Abd: Soft, (-) epigastric tenderness, (-) Distension, (-) Guarding, (-) Rebound Musculoskeletal: (-) Edema Lymph: (-) Cervical adenopathy Neuro: Alert, Oriented x3 Psych: Mood and affect Normal Triage Information Reviewed: Yes Vital Signs On Initial Exam: Initial Vitals Temp Pulse Resp BP Pulse Ox 98.6 F 108 18 178/99 96 07/16/18 06:43 07/16/18 06:43 07/16/18 06:43 07/16/18 06:43 07/16/18 06:43 Vital Signs Reviewed: Yes Diagnostics - Vital Signs Vital Signs Temp Pulse Resp BP Pulse Ox 07/16/18 06:43 98.6 F 108 18 178/99 96 - Laboratory Result Diagrams: 07/16/18 07:50 07/16/18 07:50 Lab Statement: Any lab studies that have been ordered have been reviewed, and results considered in the medical decision making process. - Radiology CXR Radiology Interpretation Completed By: Radiologist Summary of Radiographic Findings: CXR IMPRESSION: #. No evidence for acute intrathoracic disease. THIS REPORT WAS REVIEWED BY ED PHYSICIAN. - CT CTA CHEST/THORAX CT Interpretation Completed By: Radiologist Summary of CT Findings: CTA CHEST/THORAX IMPRESSION: No evidence of pulmonary emboli. No evidence of aortic dissection or thoracic. aortic aneurysm is noted. Enlarged lobular thyroid gland. Cholelithiasis without biliary duct dilatation. THIS REPORT WAS REVIEWED BY ED PHYSICIAN. - EKG 1105 Cardiac Rate: Tachycardia - RATE OF 105 BPM EKG Rhythm: Sinus Tachycardia Summary of EKG Findings: NO STEMI Re-Evaluation - Re-Evaluation First Eval Re-Evaluation Time: 09:43 Comment: Patient's heart rate is still noted to be at 110. Admission was discussed with patient, she is agreeable. Course/Dx - Course Course Of Treatment: Patient is a 78 y/o F w/ c/o SOB and difficulty lying in supine position. She states that this morning she awoke with chest pain. Afterwards, as she went to get up, she states she "couldn't breathe". This prompted today's ED visit. In the room, patient reports breathing and chest pain has improved. Patient states that chest pain has been present for "quite a while" and claims that her PCP told her that this pain was caused by her breast plate pressing against her aorta. She notes that she experiences exacerbation of SOB when lying flat. Patient states she slept in a chair last night. Patient reports SOB has been present for "some time" and notes exacerbation in the past two days. Nonproductive cough is reported as well, but patient states that she feels congested. PMHx of blood clots, CHF, pulmonary edema is denied. 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 She denies upper back pain, recent weight gain, vomiting, and diarrhea. FMHx of blood clots is denied, FMHx of cardiac disease is endorsed. She states she is not on a water pill, only BP medication. Patient has goiter problem, states that she has appointment with Dr. Colorado on July 25. On physical exam, crackles in left lower lung field is noted. CXR IMPRESSION: #. No evidence for acute intrathoracic disease. Labs showed RBC 5.93, MCV 74, MCH 25, APTT 25.5, BUN/creatinine ratio 21.6, glucose 132, lactic acid 1.4, alk phos 134, trop 0.07, BNP 14. EKG showed sinus tachycardia with rate of 110 BPM, no STEMI. CTA CHEST/THORAX IMPRESSION: No evidence of pulmonary emboli. No evidence of aortic dissection or thoracic. aortic aneurysm is noted. Enlarged lobular thyroid gland. Cholelithiasis without biliary duct dilatation. Patient's case was discussed with Dr. Maria at 0931, Dr. Maria accepts patient for admission. Patient is agreeable with admission. - Diagnoses Provider Diagnoses: Chest pain, SOB (shortness of breath), Elevated troponin - Physician Notifications Discussed Care of Patient With: Lauren Maria Time Discussed With Above Provider: 09:31 Instructed by Provider To: Other - Patient's case was discussed with Dr. Maria at 0931, Dr. Maria accepts patient for admission. Discharge - Sign-Out/Discharge Documenting (check all that apply): Patient Departure - admit - Discharge Plan Condition: Good Disposition: ADMITTED TO [facility] Referrals: Suri Villavicencio MD [Primary Care Provider] - - Attestation Statements Document Initiated by Scribe: Yes Documenting Scribe: WENDY MOLINA Provider For Whom Scribe is Documenting (Include Credential): ZUHAIR SOLORIO MD Scribe Attestation: WENDY Lomeli , scribed for ZUHAIR SOLORIO MD on 07/16/18 at 1110.
[2018-07-16 08:15] LABS: Hematocrit 44 % (35-47); Hemoglobin 14.6 g/dl (12.0-16.0); Mean Corpuscular HGB Conc 33 g/dl (31-36); Mean Corpuscular Hemoglobin 25 pg (27-31); Mean Corpuscular Volume 74 fL (80-97); Mean Platelet Volume 7.5 fL (7.4-10.4); Platelet Count 192 10^3/ul (150-450); Red Blood Count 5.93 10^6/ul (4.00-5.40); Red Cell Distribution Width 15 % (10.5-15); White Blood Count 5.2 10^3/ul (3.5-10.8)
[2018-07-16 08:26] LABS: EGFR Non-African American 75.9 (>60)
[2018-07-16 08:31] LABS: INR 0.99 (0.77-1.02)
[2018-07-16 08:42] LABS: ABS Basophils 0 10^3/ul (0-0.2); ABS Eosinophils 0.1 10^3/ul (0-0.6); ABS Lymphocytes 1.4 10^3/ul (1.0-4.8); ABS Monocytes 0.5 10^3/ul (0-0.8); ABS Neutrophils 3.2 10^3/ul (1.5-7.7); ABS Nucleated RBC 0 10^3/ul; Eosinophil % 2.2 %; Lymphocyte % 26.9 %; Nucleated Red Blood Cells % 0.2
[2018-07-16] MEDS ORDERED: Iohexol 300* (CONTRAST) 10 ML SDV IV ONE (09:41)
[2018-07-16] MEDS ORDERED: Iohexol 350* (CONTRAST) 500 ML MDV IV ONE (10:15)
[2018-07-16] MEDS ORDERED: Magnesium Hydroxide LIQ* 30 ML UDC PO PRN (12:21)
[2018-07-16] MEDS ORDERED: Al Hydrox/Mg Hydrox/Simet LIQ* 30 ML UDC PO PRN (12:21)
[2018-07-16] MEDS ORDERED: Metoprolol Succinate XL TAB* 25 MG PO ONE ×2 (13:00→18:49)
[2018-07-16] MEDS: Heparin VIAL(*) 5000 UNITS/ML VIAL (FIVE THOUSAND) SUBCUT SCH ×2 (14:59→21:13)
[2018-07-16 19:27] LABS: Urine Appearance Clear; Urine Blood Negative (Negative); Urine Color Straw; Urine Ketones Negative (Negative); Urine Protein Negative (Negative); Urine Specific Gravity 1.012 (1.010-1.030); Urine Urobilinogen Negative (Negative)
[2018-07-16] MEDS: Docusate CAP* 100 MG PO SCH (21:12)
[2018-07-16] MEDS: Pramipexole TAB* 0.125 MG PO SCH (21:12)
--- NOTE | 2018-07-16 22:22 | HP ---
CC: Dr. Suri Villavicencio; Dr. Colorado; Dr. Teran * HISTORY AND PHYSICAL: DATE OF ADMISSION: 07/16/18 PRIMARY CARE PROVIDER: Dr. Suri Villavicencio. CHIEF COMPLAINT: Shortness of breath and chest pressure with exertion. HISTORY OF PRESENT ILLNESS: Carola Samuel is a 78-year-old female with recent diagnosis of thyroid goiter and subsequent hyperthyroidism, who stated that ever since she was diagnosed with goiter in April 2018, she had been having problems with dyspnea on exertion. She also stated that when she lies flat, she feels chest pressure substernally. She noted dyspnea on exertion and chest pressure when she walks also. Her family is present in the room and they attested to that that the patient has very poor exercise tolerance. The patient's initial workup in the emergency department showed troponin of 0.07. Her EKG shows her baseline right bundle-branch block. She is going to be placed on overnight observation with diagnosis of dyspnea on exertion. PAST MEDICAL HISTORY: 1. 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 2. Gastroesophageal reflux disease with recent gastric polyps removed in December 2017. 3. Lumbar laminectomy in 2010. 4. Tubal ligation remotely. 5. Hypertension. 6. Gastroesophageal reflux disease. MEDICATIONS: Include: 1. Omeprazole 40 mg daily. 2. Metoprolol succinate 25 mg daily. 3. Methimazole 20 mg daily. 4. Hydrochlorothiazide 12.5 mg daily. 5. Enalapril 12.5 mg b.i.d. 6. Aspirin 81 mg daily. 7. Pramipexole 0.125 mg at bedtime. ALLERGIES: Include BENADRYL, FAMOTIDINE, SULFA, causes rash. The patient is also allergic to the PLASTIC TAPE. FAMILY HISTORY: Father with history of diabetes. The patient's son had colon cancer, at the age of 55. The patient's sister of heart disease. SOCIAL HISTORY: The patient is a . Her in the summer of 2016. She lives in the senior apartment. She denies any tobacco, alcohol, or drug use. As her surrogate, she mentioned her daughter, Karuna Gillespie from [place], [place]. REVIEW OF SYSTEMS: Please see history of present illness. In addition to the above mentioned, the patient stated that Dr. Law is titrating her medications for her hyperthyroidism and she is planned to have another set of blood work done at the beginning of July 2018. She has had no problems with appetite. Her weight has been stable. She stated that her heart rate had been fast ever since diagnosed with the goiter. She denies any wheezing or problems with recent upper respiratory infection symptoms. All the remaining 12 systems were reviewed and were otherwise negative. PHYSICAL EXAMINATION GENERAL: The patient is a very pleasant 78-year-old female who is in no acute distress. Alert, awake, and oriented x3. VITAL SIGNS: Blood pressure of 155/100, heart rate of 101 and regular, respiratory rate 18, oxygen saturation 95% on room air, temperature of 98.6. HEENT: Head: Atraumatic, normocephalic. Eyes: Pupils are equal, reactive to light and accommodation. Oropharynx clear. Mucosa moist. NECK: Supple. No JVD, no bruits bilaterally. Thyroid palpated and enlargement noted. No nodularities palpated. The patient has rather large and short neck. RESPIRATORY: Clear to auscultation bilaterally. CARDIOVASCULAR: Regular rate and rhythm, tachycardia. No murmur. ABDOMEN: Soft, nontender. Bowel sounds are present in all 4 quadrants. EXTREMITIES: There is no edema. Pulses are +2 bilaterally. No clubbing or cyanosis. NEUROLOGIC: On neuro evaluation, speech is clear. Cranial nerves II through XII grossly intact. Motor strength is 5/5 bilaterally. PSYCHIATRIC: Appears occasionally emotional during her conversation report, but otherwise pleasant, cooperative, appropriate and oriented x3. SKIN: On evaluation of the skin, no ecchymotic areas or rashes noted. DIAGNOSTIC STUDIES/LAB DATA: Showed a white blood cell count of 5.2, hemoglobin of 14.6, hematocrit of 44, and platelets of 192. Sodium is 140, potassium 4.3, chloride 107, carbon dioxide 28, BUN 16, creatinine 0.74. Liver function tests showed mild elevation of alkaline phosphatase of 134 and troponin was noted to be 0.07. CT angiogram of the chest showed "no evidence of PE, no evidence of aortic dissection or thoracic aortic aneurysm is noted. Enlarged and lobular thyroid gland. Cholelithiasis without biliary duct dilatation." The patient's EKG showed right bundle-branch block and sinus tachycardia with heart rate of 105 beats per minute. ASSESSMENT AND PLAN: 1. Dyspnea on exertion, substernal chest pressure whenever the patient exercises. At this point, the differential includes cardiac versus pulmonary issues. It is possible that the thyroid causes functional obstruction of the patient's airways, although it does not appear to be apparent on her CT. At this point, the patient is going to undergo a spirometry to rule out the possibility of airway obstruction. Otherwise, her lungs appear clear on evaluation and CT angiogram was negative for pulmonary embolus and gross lung abnormalities. The other part on the differential is cardiac. The patient does have positive troponin and has had abnormal EKG with right bundle-branch block at baseline. She has substernal chest pain whenever she ambulates. The patient is going to undergo a cardiac stress test on treadmill tomorrow to evaluate it further. 2. History of nodular goiter with hyperthyroidism, that is under the care of Dr. [place] who is following it closely. We will continue methimazole and beta- blockers. 3. Gastroesophageal reflux disease. Her omeprazole is going to be continued. 4. The patient's code status is full. 5. For DVT prophylaxis, the patient is going to be placed on heparin subcutaneously. TIME SPENT: Approximately 68 minutes was spent on the admission of this patient , more than half of that time was spent [id number] with the patient during the interview and physical exam. [id number]/[facility] #: [id number] SHAINA
[2018-07-17] MEDS: Heparin VIAL(*) 5000 UNITS/ML VIAL (FIVE THOUSAND) SUBCUT SCH ×3 (05:24→20:13)
[2018-07-17 07:34] LABS: Hematocrit 40 % (35-47); Hemoglobin 13.1 g/dl (12.0-16.0); Mean Corpuscular HGB Conc 33 g/dl (31-36); Mean Corpuscular Hemoglobin 24 pg (27-31); Mean Platelet Volume 7.7 fL (7.4-10.4); Platelet Count 192 10^3/ul (150-450); Red Blood Count 5.39 10^6/ul (4.00-5.40); Red Cell Distribution Width 15 % (10.5-15); White Blood Count 5.7 10^3/ul (3.5-10.8)
[2018-07-17 07:42] LABS: EGFR Non-African American 75.9 (>60)
[2018-07-17 08:14] LABS: ABS Basophils 0 10^3/ul (0-0.2); ABS Eosinophils 0.2 10^3/ul (0-0.6); ABS Lymphocytes 2.4 10^3/ul (1.0-4.8); ABS Monocytes 0.5 10^3/ul (0-0.8); ABS Neutrophils 2.5 10^3/ul (1.5-7.7); ABS Nucleated RBC 0 10^3/ul; Eosinophil % 3.9 %; Lymphocyte % 42.7 %; Mean Corpuscular Volume 74 fL (80-97); Nucleated Red Blood Cells % 0.2
[2018-07-17] MEDS: Omeprazole CAP* 20 MG PO SCH (08:37)
[2018-07-17] MEDS: Docusate CAP* 100 MG PO SCH ×2 (08:37→20:13)
[2018-07-17] MEDS: Methimazole TAB* 5 MG PO SCH (08:38)
[2018-07-17] MEDS: Aspirin EC TAB* 81 MG TAB.EC PO SCH (08:38)
[2018-07-17] MEDS ORDERED: Hydrochlorothiazide TAB* 25 MG PO SCH (09:00)
[2018-07-17] MEDS ORDERED: Perflutren Lipid Microsphere* 3 ML VIAL ONE (10:20)
[2018-07-17] MEDS: Metoprolol Succinate XL TAB* 25 MG PO SCH (11:33)
--- NOTE | 2018-07-17 12:00 | ECHO ---
Patient: FRANCISCO CHAMPION [facility] Rec#: [id number] : 1940 Date: 07/17/2018 Age: 78y Height: 150 cm / 59.1 in Weight: 69.5 kg / 153.2 lbs Sex: F BSA: 1.7 Room#: [facility] Admit Date#: 07/16/2018 Type: Inpatient Referring: Lauren Maria MD Reading: Danielle Sun MD Supply Chain Buyer: Danielle Sun MD Supply Chain Buyer: Agnieszka Epstein RN RDCS CC: Alfredo Villavicencio MD Transthoracic Echocardiogram Indication: Chest pain BP: 145/69 HR: 116 Rhythm: Tachycardia Findings History: Thyroid goiter, hyperthyroidism, HTN Technical Comments: The study is technically limited due to patient body habitus. Left Ventricle: The left ventricular chamber size is decreased. Mild concentric left ventricular hypertrophy is observed. Global left ventricular wall motion and contractility are within normal limits. The left ventricle appears hyperdynamic. The estimated ejection fraction is greater than 65%. There is no consistent Doppler evidence of clinically significant diastolic dysfunction. Left Atrium: The left atrial chamber size is normal. Right Ventricle: The right ventricular cavity size is normal. The right ventricular global systolic function is normal. Right Atrium: The right atrium is not well visualized. Aortic Valve: The aortic valve is trileaflet. The aortic valve leaflets are mildly thickened. There is no evidence of aortic regurgitation. There is no evidence of aortic stenosis. Mitral Valve: The mitral valve leaflets are mildly thickened. There is a trace of mitral regurgitation. There is no evidence of mitral stenosis. Tricuspid Valve: The tricuspid valve structure is not well visualized. There is no evidence of tricuspid valve regurgitation. There is no tricuspid stenosis. Pulmonic Valve: The pulmonic valve structure is not well visualized. There is no evidence of pulmonic regurgitation. There is no pulmonic stenosis. Pericardium: There is no significant pericardial effusion. A pericardial fat pad is visualized. Aorta: There is no dilatation of the ascending aorta. There is no dilatation of the aortic arch. There is no dilation of the aortic root. Pulmonary Artery: The main pulmonary artery is not well visualized. Venous: The inferior vena cava appears normal in size. There is a greater than 50% respiratory change in the inferior vena cava dimension. Contrast: Definity was used to optimize study. A total of 3 ml of diluted Definity was given IV. Conclusions Mild concentric left ventricular hypertrophy is observed. The left ventricular chamber size is decreased. The left ventricle appears hyperdynamic, no wall motion abnormalities seen with Definity echo contrast. The estimated ejection fraction is greater than 65%. The right ventricular global systolic function is normal. The aortic valve leaflets are mildly thickened. There is a trace of mitral regurgitation. No prior echo to compare. Measurements Name Value Normal Range RVIDd (AP) 2D 2.5 cm (0.9 - 2.6) RVDdMajor (2D) 2.6 cm (2.2 - 4.4) IVSd (2D) 1.2 cm (0.6 - 1) LVPWd (2D) 1.2 cm (0.6 - 1) LVIDd (2D) 2.6 cm (3.6 - 5.4) Aortic Annulus 1.8 cm (1.4 - 2.6) Ao root diameter (2D) 3.1 cm (2.1 - 3.5) Ascending Ao 3.4 cm (2.1 - 3.4) Aortic arch 2.6 cm (1.8 - 3.4) LA dimension (AP) 2D 2.5 cm (2.3 - 3.8) LAd ISD 4CH 4.9 cm (2.9 - 5.3) LA ISD 4CH W 3.3 cm (2.5 - 4.5) Name Value Normal Range LA ESV BP (A/L) index 17.6 ml/m2 - Name Value Normal Range MV E-wave Vmax 0.7 m/sec - MV deceleration time 239 msec - MV A-wave Vmax 1.3 m/sec - MV E:A ratio 0.6 ratio - LV septal e' Vmax 0.06 m/sec - LV lateral e' Vmax 0.06 m/sec - LV E:e' septal ratio 11.7 ratio - LV E:e' lateral ratio 11.7 ratio - Name Value Normal Range AV Vmax 1.5 m/sec - AV VTI 26 cm - AV peak gradient 9 mmHg - AV mean gradient 5 mmHg - LVOT Vmax 0.88 m/sec - LVOT VTI 15.9 cm - LVOT peak gradient 3 mmHg - LVOT mean gradient 2 mmHg - BETO Vmax 0.43 m/sec - Name Value Normal Range IVC diameter 1.2 cm - Name Value Normal Range PV Vmax 0.57 m/sec -
[2018-07-17] MEDS: NS 0.9% 1000 ML* 1,000 ML IV SCH (12:26)
[2018-07-17] MEDS ORDERED: Aminophylline IV* 25 MG/ML 10 ML VIAL ONE (14:18)
[2018-07-17] MEDS ORDERED: Regadenoson* 0.4 MG/5 ML SYRINGE ONE (14:18)
--- NOTE | 2018-07-17 17:31 | PN ---
Subjective Date of Service: 07/17/18 Interval History: Pt was very SOB with stress test. Is afraid to go home and "suffocate" at night. Pulm was unable to do spirometry today. Otherwise pt has no new complaints Objective Active Medications: Al Hydrox/Mg Hydrox/Simethicone (Maalox Plus*) 30 ml PO Q6H PRN PRN Reason: INDIGESTION Aspirin (Aspirin Ec Tab*) 81 mg PO QAM [facility] Last Admin: 07/17/18 08:38 Dose: 81 mg Docusate Sodium (Colace Cap*) 100 mg PO BID [facility] Last Admin: 07/17/18 08:37 Dose: 100 mg Heparin Sodium (Porcine) (Heparin Vial(*)) 5,000 units SUBCUT Q8HR [facility] Last Admin: 07/17/18 15:24 Dose: 5,000 units Sodium Chloride (Ns 0.9% 1000 Ml*) 1,000 mls @ 125 mls/hr IV PER RATE [facility] Last Admin: 07/17/18 12:26 Dose: 125 mls/hr Magnesium Hydroxide (Milk Of Magnbee Liq*) 30 ml PO Q4H PRN PRN Reason: CONSTIPATION Methimazole (Tapazole Tab*) 20 mg PO DAILY [facility] Last Admin: 07/17/18 08:38 Dose: 20 mg Metoprolol Succinate (Toprol Xl Tab*) 25 mg PO DAILY [facility] Last Admin: 07/17/18 11:33 Dose: 25 mg Omeprazole (Prilosec Cap*) 40 mg PO QAM [facility] Last Admin: 07/17/18 08:37 Dose: 40 mg Pramipexole Dihydrochloride (Mirapex Tab*) 0.125 mg PO BEDTIME [facility] Last Admin: 07/16/18 21:12 Dose: 0.125 mg Vital Signs - 8 hr 07/17/18 07/17/18 11:17 16:09 Temperature 98.3 F 98 F Pulse Rate 92 90 Respiratory 18 24 Rate Blood Pressure 130/66 148/72 (mmHg) O2 Sat by Pulse 96 95 Oximetry Oxygen Devices in Use Now: None Appearance: 78 yo f in nAD, AAOx3 Eyes: No Scleral Icterus, PERRLA Ears/Nose/Mouth/Throat: NL Teeth, Lips, Gums, Mucous Membranes Moist Neck: Trachea Midline, - - goiter palpable Respiratory: Symmetrical Chest Expansion and Respiratory Effort, Clear to Auscultation Cardiovascular: NL Sounds; No Murmurs; No JVD Abdominal: NL Sounds; No Tenderness; No Distention Lymphatic: No Cervical Adenopathy Extremities: No Edema, No Clubbing, Cyanosis, - Skin: No Rash or Ulcers, No Nodules or Sclerosis Neurological: Alert and Oriented x 3, NL Muscle Strength and Tone Result Diagrams: 07/17/18 06:48 07/17/18 06:48 Microbiology and Other Data: Microbiology 07/16/18 07:57 Aerobic Blood Culture - Preliminary Blood Venous No Growth Day 1 Anaerobic Blood Culture - Preliminary No Growth Day 1 07/16/18 07:50 Aerobic Blood Culture - Preliminary Blood Venous No Growth Day 1 Anaerobic Blood Culture - Preliminary No Growth Day 1 Assess/Plan/Problems-Billing Assessment: 78 yo f with h/o toxic multinodular goiter c/o ZUNIGA and PND - Patient Problems (1) SOB (shortness of breath) Comment: stress test suboptimal due to ZUNIGA. Nuclear part shows large fixed defect. Trop peaked at 0.4. Cardiology consult pending spirometry able to be done tomorrow PM or outpatient. will check overnight pulse ox if pt decides to stay after seeing brim blocker (2) Hyperthyroidism Comment: cont methimazole. F/u by Dr. [place] (3) HTN (hypertension) Comment: controled on lopressor (4) DVT prophylaxis Comment: HSQ Status and Disposition: OBV
[2018-07-17] MEDS: Pramipexole TAB* 0.125 MG PO SCH (20:13)
[2018-07-17] MEDS: Nitroglycerin 0.4 MG/HR PATCH* (10 MG) TRANSDERM SCH (20:13)
[2018-07-18] MEDS: NS 0.9% 1000 ML* 1,000 ML IV SCH ×2 (00:40→14:17)
--- NOTE | 2018-07-18 01:55 | PN ---
Progress Note - Progress Note Date of Service: 07/18/18 Note: Appears to be having intermittent bouts of tachycardia - hx of hyperthyroidism. Added on TSH and free t4 to labs from earlier
[2018-07-18] MEDS: Heparin VIAL(*) 5000 UNITS/ML VIAL (FIVE THOUSAND) SUBCUT SCH ×3 (05:03→21:10)
--- NOTE | 2018-07-18 05:07 | CONS ---
CC: Suri Villavicencio MD; Venkat Colorado MD; Hospitalist Service * CARDIOLOGY CONSULTATION: DATE OF CONSULT: 07/17/18 PRIMARY CARE PHYSICIAN: Dr. Suri Villavicencio. REASON FOR CONSULTATION: Chest pain and elevated troponins. CHIEF COMPLAINT: Shortness of breath and chest pain. HISTORY OF PRESENT ILLNESS: Mrs. Samuel is a 78-year-old woman who has not seen a oral surgery technician to date, who tells me she was recently diagnosed with a goiter and hyperthyroid disease and started on methimazole approximately 5 weeks ago. The patient states that for several weeks, she has been getting more and more winded walking short distances and additionally she has had some upper substernal chest discomfort and she points really to the supraclavicular notch. This will come on particularly at night when she tries to lie flat and last night, it was severe and she decided to present to the emergency room. In the emergency room, her troponin was mildly elevated and was increased mildly with serial lab levels. The patient states that right now, she is feeling better, but she cannot point to any particular medication or therapy that made a difference. The patient states last night, she was unable to lie flat even in the hospital bed, when they raised the hospital bed up, she was able to sleep comfortably without pain. PAST MEDICAL HISTORY: 1. 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 2. Reflux. 3. Hypertension. The patient states it is negative for diabetes, coronary disease, cholesterol problems. PAST SURGICAL HISTORY: Includes: 1. Lumbar laminectomy in 2010. 2. Tubal ligation. MEDICATIONS: Outpatient medications included: 1. Omeprazole 40 mg a day. 2. Methimazole 20 mg a day. 3. Metoprolol 25 mg a day. 4. Hydrochlorothiazide 12.5 mg a day. 5. Enalapril 12.5 mg a day. 6. Aspirin 81 mg a day. 7. Pramipexole 0.125 mg a day. Current inpatient meds include: 1. Maalox p.r.n. 2. Aspirin 81 mg a day. 3. Colace 100 mg a day. 4. Subcutaneous heparin q.8 hours. 5. Milk of magnesia p.r.n. 6. Methimazole 20 mg a day. 7. Toprol XL 25 mg a day. 8. Omeprazole 40 mg a day. 9. Mirapex 0.125 mg q.h.s. 10. Normal saline 125 mL an hour. ALLERGIES: Include BENADRYL, FAMOTIDINE, SULFA (RASH), PLASTIC TAPE. 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 She has never smoked. No history of recreational drug use. Does not drink alcohol. She is recently in 2017. She has a son and daughter who live in [place]; they were present during the exam with their spouses. FAMILY HISTORY: Significant that her mother in her 30s of some sort of heart problem. Her father in his 70s. She has a brother and a sister who have pacemakers. She has another son, who of colon cancer. REVIEW OF SYSTEMS: A 15-point review of systems is significant for some recent weight loss that has been attributed to her hyperthyroid state, progressive exertional dyspnea for several weeks and several weeks of chest discomfort that has become progressively worse as described above. It was also positive for the orthopnea she described. Positive for snoring, there has been no observed apnea episodes. The patient denies recent changes in bowel habits, hematuria, dysuria, fevers, chills, sweats, no coughing. All other 14-point review of systems was unremarkable. PHYSICAL EXAM: The patient is 4 feet 11 inches, weighs 153 pounds with a BMI of 31. General Appearance: Short, centripetally obese, older woman, lying in bed about 30 degrees to 40 degrees, talking with family, appearing reasonably comfortable with oxygen on. Vitals: On arrival to the emergency room on at 7 a.m., blood pressure 178/99, pulse was 108, respiratory rate 18, oxygen saturation on room air was 96%. She was afebrile. Currently, blood pressure 146/90, pulse ranging 92 to 115. Oxygen saturation 94% and again afebrile. HEENT: Pupils were equal and round. Mucous membranes were moist. Neck: Thick without extra adipose tissue. Nodular goiter can also be appreciated with palpation. I do not appreciate lymphadenopathy. Palpable carotid pulses that are 2 to 3+ and free of bruits. Breath sounds were clear with good effort. No wheezes, rales or rhonchi. Coronary: S1, S2, regular, but tachycardic without appreciable murmurs. Questionable soft S4 gallop. Abdomen: Centripetally very overweight. Active bowel sounds. Soft and nontender. No appreciable hepatosplenomegaly, masses or bruits. Lower extremities are very thin with strong 3+ posterior tibial pulses easily palpated that are symmetrical. DIAGNOSTIC STUDIES/LAB DATA: Her chest x-ray on 07/16/18, no evidence of acute disease. CT angiogram on 07/16/18, negative for pulmonary emboli and large thyroid gland noted, cholelithiasis noted. No thoracic aneurysm noted. EKG from 07/16/18 at 11 a.m. showed sinus tachycardia, 105 beats a minute with a right bundle-branch block. QRS axis 0. Normal AV conduction times and unremarkable STs. A 12-lead ECG today at 21:00 showed sinus tachycardia with a right bundle- branch block, QRS axis -30, normal AV conduction times, somewhat flattened T- waves laterally. Exercise nuclear stress test done today reviewed personally. The report showed a large fixed defect in the lateral wall. I felt there was a fixed and reversible defect. Her ejection fraction was 69%. Verbal report of the exercise portion (strips not yet located) from Dr. Garcia was that she was markedly winded but no chest pain. Echocardiogram today showed mild left ventricular hypertrophy with a small LV chamber diameter and hyperdynamic ventricle. No focal wall motion abnormalities were appreciated and ejection fraction was greater than 65%. She had aortic valve sclerosis and trace mitral insufficiency. Labs showed white count 5.7, hemoglobin 13, hematocrit 40, mean cell volume 74, platelets 192. INR 0.9, PTT 26. Sodium 140, potassium 4.1, chloride 109, bicarb 25, BUN 18, creatinine 0.74, glucose 116, lactic acid 1.3. On admission , AST 27, ALT 23. Troponin #1 0.07, troponin #2 0.41, troponin #3 0.42, troponin #4 0.44, troponin #5 0.40. C-reactive protein 1.96. BNP of 14. Urinalysis, specific gravity 1.012, negative for esterase, negative for nitrites. Records from Dr. Suri Villavicencio and Dr. Venkat Colorado were not available to me at the time of this dictation. I did find a surgical clearance note from [facility] 2010 prior to laminectomy in the [facility] chart documenting chronic exertional dyspnea with stairs and at that time, she had a documented stress test in 2011, negative for ischemia and history of hypertension. It also documents that she had an EKG from 2011 reviewed confirming she had a right bundle-branch block and a heart rate of 86 beats a minute. IMPRESSION AND PLAN: In summary, Carola Samuel is a 78-year-old who has recently been diagnosed with hyperthyroid disease and recently started on methimazole who had worsening of chronic exertional dyspnea and upper substernal chest pain and pain in the clavicular notch. It was worse yesterday so she presented to our center and has shown progressive mild elevation in troponins and has an abnormal stress test with a fixed and reversible area of ischemia in the lateral wall suggestive of a circumflex lesion. She shows no evidence of permanent damage; in fact, her heart is hyperdynamic with a small chamber diameter, which would be consistent with her hyperthyroid disease. For the chest pain and elevated troponins, she has risk factors of metabolic syndrome, hypertension, family history of atherosclerotic disease, centripetal obesity and I don't yet have lipid panel on her. I think she has a high risk of atherosclerotic disease and I have recommended she undergo cardiac catheterization discussed with Dr. Garcia as well as with the patient and her family. With the exertional dyspnea, this is longstanding and worsened, it could be related to relative deconditioning plus her hyperthyroid disease and diastolic dysfunction. The patient has also had exposure to some sort of chlorine material for 12 years and it is also possible that she has some pulmonary damage related to this chemical. Followup evaluation on this to be evaluated either through Medicine or Pulmonary. In the interim, I agree with IV hydration for her small ventricle and I would try beta-ian gradually to allow for improved filling. I sent a lipid panel for complete risk factor modification, if Dr. Villavicencio has not done as an outpatient, you could consider checking a hemoglobin A1c, but I would recommend getting her outpatient records. Her low mean cell volume is also noted and there is very likely an outpatient workup that is either in progress or been completed, but this should be verified as well. Further recommendations will be made pending her clinical course and response to the above measures. Thank you for allowing me to assist in this nice woman's care. [id number]/[facility] #: [id number] SHAINA
[2018-07-18] MEDS: Omeprazole CAP* 20 MG PO SCH (08:08)
[2018-07-18] MEDS: Methimazole TAB* 5 MG PO SCH (08:08)
[2018-07-18] MEDS: Metoprolol Succinate XL TAB* 25 MG PO SCH (08:08)
[2018-07-18] MEDS: Docusate CAP* 100 MG PO SCH ×2 (08:09→21:15)
[2018-07-18] MEDS: Nitroglycerin 0.4 MG/HR PATCH* (10 MG) TRANSDERM SCH (08:09)
[2018-07-18] MEDS: Aspirin EC TAB* 81 MG TAB.EC PO SCH (08:09)
[2018-07-18] MEDS: Nitro Patch/OINT Remove PATCH OFF SCH (08:15)
[2018-07-18] MEDS ORDERED: Midazolam* 1 MG/ML 10 ML VIAL (10 MG) ONE (09:26)
[2018-07-18] MEDS ORDERED: fentaNYL* 50 MCG/ML 2 ML VIAL (100 MCG VIAL) ONE (09:26)
[2018-07-18] MEDS ORDERED: Heparin(*) 1000 UNIT/ML 10 ML VIAL CATH LAB IV ONE (09:26)
[2018-07-18] MEDS ORDERED: VERAPAMIL 2.5 MG/ML 2 ML VIAL ** 5 mg/2 ml ONE (09:26)
[2018-07-18] MEDS ORDERED: Lidocaine 1% INJ* 10 MG/ML 30 ML SDV ONE (09:27)
[2018-07-18] MEDS ORDERED: Iohexol 350 (CONTRAST) 200 ML MDV IV ONE (09:27)
[2018-07-18] MEDS ORDERED: Heparin 2 UNITS/ML IVPREMIX* 2,000 ML IV ONE (09:27)
[2018-07-18] MEDS ORDERED: Iohexol 300 (CONTRAST) 10 ML SDV ONE (09:27)
[2018-07-18] MEDS ORDERED: nitroGLYCERIN DRIP* 25,000 MCG/250 ML BTL ONE (09:27)
[2018-07-18] MEDS ORDERED: Bivalirudin(*) 250 MG VIAL ONE (10:28)
[2018-07-18] MEDS ORDERED: Ticagrelor* 90 MG TAB PO ONE (10:28)
[2018-07-18] MEDS ORDERED: Nitroglycerin TAB 0.4 MG* 0.4 MG TAB SL PRN (11:01)
[2018-07-18] MEDS ORDERED: Atorvastatin* 80 MG TAB PO ONE (11:07)
[2018-07-18] MEDS ORDERED: Metoprolol Tartrate IV* 1 MG/ML 5 ML VIAL IV PRN (12:19)
[2018-07-18] MEDS ORDERED: Metoprolol Succinate XL TAB* 25 MG PO ONE (12:20)
[2018-07-18] MEDS ORDERED: Lisinopril TAB* 5 MG PO ONE (13:00)
[2018-07-18] MEDS: fentaNYL* 50 MCG/ML 2 ML VIAL (100 MCG VIAL) IV PRN ×2 (13:23→21:07)
--- NOTE | 2018-07-18 17:12 | PN ---
Subjective Date of Service: 07/18/18 Interval History: Pt feels much better after cath and stent placement to circ. SOB resolved. Objective Active Medications: Al Hydrox/Mg Hydrox/Simethicone (Maalox Plus*) 30 ml PO Q6H PRN PRN Reason: INDIGESTION Aspirin (Aspirin Ec Tab*) 81 mg PO QAM [facility] Last Admin: 07/18/18 08:09 Dose: 81 mg Atorvastatin Calcium (Lipitor*) 80 mg PO 2100 [facility] Docusate Sodium (Colace Cap*) 100 mg PO BID [facility] Last Admin: 07/18/18 08:09 Dose: 100 mg Fentanyl Citrate (Fentanyl*) 25 mcg IV Q2H PRN PRN Reason: PAIN Last Admin: 07/18/18 13:23 Dose: 25 mcg Heparin Sodium (Porcine) (Heparin Vial(*)) 5,000 units SUBCUT Q8HR [facility] Last Admin: 07/18/18 13:27 Dose: 5,000 units Sodium Chloride (Ns 0.9% 1000 Ml*) 1,000 mls @ 125 mls/hr IV PER RATE [facility] Last Admin: 07/18/18 14:17 Dose: 125 mls/hr Magnesium Hydroxide (Milk Of Magnbee Liq*) 30 ml PO Q4H PRN PRN Reason: CONSTIPATION Methimazole (Tapazole Tab*) 20 mg PO DAILY [facility] Last Admin: 07/18/18 08:08 Dose: 20 mg Metoprolol Succinate (Toprol Xl Tab*) 50 mg PO DAILY [facility] Metoprolol Tartrate (Lopressor Iv*) 5 mg IV Q4H PRN PRN Reason: BLOOD PRESSURE Last Admin: 07/18/18 14:37 Dose: 5 mg Nitroglycerin (Nitroglycerin 10 Mg Patch*) 1 patch TRANSDERM DAILY [facility] Last Admin: 07/18/18 08:09 Dose: 1 patch Nitroglycerin (Nitroglycerin Tab 0.4 Mg*) 0.4 mg SL Q5M PRN PRN Reason: ANGINA Omeprazole (Prilosec Cap*) 40 mg PO QAM [facility] Last Admin: 07/18/18 08:08 Dose: 40 mg Pharmacy Profile Note (Nitro Patch/Oint Remove*) 1 note PATCH OFF DAILY@0800 [facility] Last Admin: 07/18/18 08:15 Dose: 1 patch Pramipexole Dihydrochloride (Mirapex Tab*) 0.125 mg PO BEDTIME [facility] Last Admin: 07/17/18 20:13 Dose: 0.125 mg Ticagrelor (Brilinta*) 90 mg PO BID [facility] Vital Signs - 8 hr 07/18/18 07/18/18 07/18/18 11:21 11:28 11:30 Temperature Pulse Rate 103 82 85 Respiratory 23 24 Rate Blood Pressure 166/82 161/86 (mmHg) O2 Sat by Pulse 98 100 100 Oximetry 07/18/18 07/18/18 07/18/18 11:41 11:45 11:48 Temperature Pulse Rate 89 90 101 Respiratory 22 22 25 Rate Blood Pressure 131/86 189/87 150/92 (mmHg) O2 Sat by Pulse 99 100 100 Oximetry 07/18/18 07/18/18 07/18/18 12:00 12:01 12:02 Temperature 97.2 F Pulse Rate 83 81 81 Respiratory 25 22 24 Rate Blood Pressure 168/98 162/94 (mmHg) O2 Sat by Pulse 100 100 100 Oximetry 07/18/18 07/18/18 07/18/18 12:09 12:15 12:30 Temperature Pulse Rate 84 85 76 Respiratory 15 21 22 Rate Blood Pressure 160/102 182/90 176/81 (mmHg) O2 Sat by Pulse 100 100 100 Oximetry 07/18/18 07/18/18 07/18/18 12:45 13:00 13:01 Temperature Pulse Rate 99 85 81 Respiratory 25 23 21 Rate Blood Pressure 162/100 191/103 (mmHg) O2 Sat by Pulse 100 100 100 Oximetry 07/18/18 07/18/18 07/18/18 13:15 13:23 13:25 Temperature Pulse Rate 81 Respiratory 30 18 22 Rate Blood Pressure 180/89 (mmHg) O2 Sat by Pulse 100 Oximetry 07/18/18 07/18/18 07/18/18 13:30 13:45 14:00 Temperature Pulse Rate 80 Respiratory 23 20 20 Rate Blood Pressure 156/81 154/84 150/106 (mmHg) O2 Sat by Pulse 100 100 100 Oximetry 07/18/18 07/18/18 07/18/18 14:01 14:10 14:15 Temperature Pulse Rate 88 87 Respiratory 21 24 23 Rate Blood Pressure 178/86 171/95 (mmHg) O2 Sat by Pulse 100 100 100 Oximetry 07/18/18 07/18/18 07/18/18 14:45 15:00 15:01 Temperature Pulse Rate 68 Respiratory 21 26 23 Rate Blood Pressure 138/78 139/79 (mmHg) O2 Sat by Pulse 100 100 100 Oximetry 07/18/18 07/18/18 07/18/18 15:15 15:30 15:45 Temperature Pulse Rate Respiratory 21 24 25 Rate Blood Pressure 150/67 158/99 154/84 (mmHg) O2 Sat by Pulse 100 100 100 Oximetry 07/18/18 07/18/18 07/18/18 16:00 16:01 16:16 Temperature Pulse Rate Respiratory 21 25 19 Rate Blood Pressure 172/76 155/84 (mmHg) O2 Sat by Pulse 100 100 100 Oximetry Oxygen Devices in Use Now: Nasal Cannula Appearance: 78 yo F in nAD, aAOx3 Eyes: No Scleral Icterus, PERRLA Ears/Nose/Mouth/Throat: NL Teeth, Lips, Gums, Mucous Membranes Moist Neck: NL Appearance and Movements; NL JVP, Trachea Midline Respiratory: Symmetrical Chest Expansion and Respiratory Effort, Clear to Auscultation Cardiovascular: NL Sounds; No Murmurs; No JVD, RRR Abdominal: NL Sounds; No Tenderness; No Distention, No Hepatosplenomegaly Lymphatic: No Cervical Adenopathy Extremities: No Edema Skin: No Rash or Ulcers, No Nodules or Sclerosis Neurological: Alert and Oriented x 3, NL Muscle Strength and Tone Result Diagrams: 07/17/18 06:48 07/17/18 06:48 Microbiology and Other Data: Microbiology 07/16/18 07:57 Aerobic Blood Culture - Preliminary Blood Venous No Growth Day 1 Anaerobic Blood Culture - Preliminary No Growth Day 1 07/16/18 07:50 Aerobic Blood Culture - Preliminary Blood Venous No Growth Day 1 Anaerobic Blood Culture - Preliminary No Growth Day 1 Assess/Plan/Problems-Billing Assessment: 78 yo f with h/o toxic multinodular goiter c/o ZUNIGA and PND - Patient Problems (1) SOB (shortness of breath) Comment: stress test suboptimal due to ZUNIGA. Nuclear part shows large fixed defect. Trop peaked at 0.4. S/p cath 07/18/18, stent to circ. now in ICU. On ASA/Brilinta overnight pulse ox pending (2) Hyperthyroidism Comment: cont methimazole. F/u by Dr. Colorado (3) HTN (hypertension) Comment: lopressor increased (4) DVT prophylaxis Comment: HSQ (5) Dyslipidemia Comment: started on lipitor , LDL 89 Status and Disposition: OBV switched to inpatient
[2018-07-18] MEDS: Atorvastatin* 80 MG TAB PO SCH (21:15)
[2018-07-18] MEDS: Ticagrelor* 90 MG TAB PO SCH (21:15)
[2018-07-18] MEDS: Pramipexole TAB* 0.125 MG PO SCH (21:28)
[2018-07-19] MEDS ORDERED: fentaNYL* 50 MCG/ML 2 ML VIAL (100 MCG VIAL) IV ONE (03:44)
[2018-07-19 03:59] LABS: ABS Basophils 0 10^3/ul (0-0.2); ABS Eosinophils 0.3 10^3/ul (0-0.6); ABS Lymphocytes 1.5 10^3/ul (1.0-4.8); ABS Monocytes 0.5 10^3/ul (0-0.8); ABS Neutrophils 4.1 10^3/ul (1.5-7.7); ABS Nucleated RBC 0 10^3/ul; Eosinophil % 4.4 %; Hematocrit 43 % (35-47); Hemoglobin 14.3 g/dl (12.0-16.0); Lymphocyte % 23.2 %; Mean Corpuscular HGB Conc 33 g/dl (31-36); Mean Corpuscular Hemoglobin 25 pg (27-31); Mean Corpuscular Volume 74 fL (80-97); Mean Platelet Volume 7.4 fL (7.4-10.4); Nucleated Red Blood Cells % 0.1; Platelet Count 213 10^3/ul (150-450); Red Blood Count 5.78 10^6/ul (4.00-5.40); Red Cell Distribution Width 15 % (10.5-15); White Blood Count 6.5 10^3/ul (3.5-10.8)
[2018-07-19 04:14] LABS: EGFR Non-African American 77.1 (>60)
[2018-07-19] MEDS: Heparin VIAL(*) 5000 UNITS/ML VIAL (FIVE THOUSAND) SUBCUT SCH ×3 (04:56→20:45)
--- NOTE | 2018-07-19 08:52 | PN ---
Subjective Date of Service: 07/19/18 Interval History: f/u NSTEMI No CP or dyspnea tele: NSR, no arrhythmias Medications Active Medications: Al Hydrox/Mg Hydrox/Simethicone (Maalox Plus*) 30 ml PO Q6H PRN PRN Reason: INDIGESTION Aspirin (Aspirin Ec Tab*) 81 mg PO QAM [facility] Last Admin: 07/18/18 08:09 Dose: 81 mg Atorvastatin Calcium (Lipitor*) 80 mg PO 2100 [facility] Last Admin: 07/18/18 21:15 Dose: 80 mg Docusate Sodium (Colace Cap*) 100 mg PO BID [facility] Last Admin: 07/18/18 21:15 Dose: 100 mg Enalapril Maleate (Vasotec Tab*) 2.5 mg PO BID [facility] Fentanyl Citrate (Fentanyl*) 25 mcg IV Q2H PRN PRN Reason: PAIN Last Admin: 07/18/18 21:07 Dose: 25 mcg Heparin Sodium (Porcine) (Heparin Vial(*)) 5,000 units SUBCUT Q8HR [facility] Last Admin: 07/19/18 04:56 Dose: Not Given Hydrochlorothiazide (Hydrodiuril Tab*) 12.5 mg PO DAILY [facility] Magnesium Hydroxide (Milk Of Magnesia Liq*) 30 ml PO Q4H PRN PRN Reason: CONSTIPATION Methimazole (Tapazole Tab*) 20 mg PO DAILY [facility] Last Admin: 07/18/18 08:08 Dose: 20 mg Metoprolol Succinate (Toprol Xl Tab*) 50 mg PO DAILY [facility] Nitroglycerin (Nitroglycerin Tab 0.4 Mg*) 0.4 mg SL Q5M PRN PRN Reason: ANGINA Omeprazole (Prilosec Cap*) 40 mg PO QAM [facility] Last Admin: 07/18/18 08:08 Dose: 40 mg Pramipexole Dihydrochloride (Mirapex Tab*) 0.125 mg PO BEDTIME [facility] Last Admin: 07/18/18 21:28 Dose: 0.125 mg Ticagrelor (Brilinta*) 90 mg PO BID [facility] Last Admin: 07/18/18 21:15 Dose: 90 mg Objective Vital Signs: Temp Pulse Resp BP Pulse Ox 97.8 F 84 25 139/84 97 07/19/18 07:57 07/19/18 07:01 07/19/18 07:01 07/19/18 07:00 07/19/18 07:01 Oxygen Devices in Use Now: None Appearance: nad, pleasant Ears/Nose/Mouth/Throat: Clear Oropharnyx, Mucous Membranes Moist Neck: NL Appearance and Movements; NL JVP, Trachea Midline Respiratory: Symmetrical Chest Expansion and Respiratory Effort, Clear to Auscultation Cardiovascular: NL Sounds; No Murmurs; No JVD, RRR, No Edema Abdominal: NL Sounds; No Tenderness; No Distention, - - obese Extremities: No Edema, No Clubbing, Cyanosis, - - radial cath site intact, pulse felt distal easily, hand well perfused. R groin mild ecchmosis and pain, no swelling or bruit, pulse intact, no evidence of hematoma Skin: No Rash or Ulcers Neurological: Alert and Oriented x 3 Laboratory Results: 07/19/18 03:52 07/19/18 03:52 INR (Anticoag Therapy) 0.99 (0.77-1.02) 07/16/18 07:50 APTT 25.5 seconds (26.0-36.3) L 07/16/18 07:50 Total Bilirubin 0.80 mg/dL (0.2-1.0) 07/16/18 07:50 AST 27 U/L (13-39) 07/16/18 07:50 ALT 23 U/L (7-52) 07/16/18 07:50 Alkaline Phosphatase 134 U/L (34-104) H 07/16/18 07:50 B-Natriuretic Peptide 14 pg/mL (<=100) 07/16/18 07:50 Total Protein 7.2 g/dL (6.4-8.9) 07/16/18 07:50 Albumin 4.2 g/dL (3.2-5.2) 07/16/18 07:50 Globulin 3.0 g/dL (2-4) 07/16/18 07:50 Albumin/Globulin Ratio 1.4 (1-3) 07/16/18 07:50 Triglycerides 124 mg/dL 07/18/18 06:08 Cholesterol 145 mg/dL 07/18/18 06:08 LDL Cholesterol 89 mg/dL 07/18/18 06:08 HDL Cholesterol 31.4 mg/dL 07/18/18 06:08 TSH Cancelled 07/17/18 06:48 tsh 0, free t4 3.45 07/16/18 07/16/18 07/16/18 07:50 13:43 18:44 Troponin I 0.07 H* 0.41 H* 0.42 H* 07/16/18 07/17/18 22:31 06:48 Troponin I 0.44 H* 0.40 H* Diagnostic Imaging: echo 07/17/2018: Hyperdynamic LVEF, no segmental WMA or significant valvular abnormalities Assessment/Plan 78 year old woman hx of HTN, obsesity, active hypothyroidism a/w NSTEMI s/p PCI/ LISA to Lcx, LVEF normal, doing well - Continue aspirin 81 mg po daily - Continue brillinta 90 mg po bid - Continue atorvastatin 80 mg po daily - d/c topical nitrates and restart home BP medications (ordered) - Continue increased dose of toprol - Thyroid tx per Endocrinology/Primary service - Patient needs OOB/ambulate, ok to transfer to telemetry. Thank you for allowing me to participate in the cardiovascular care of this patient. Please do not hesitate to contact me with questions or concerns.
[2018-07-19] MEDS ORDERED: Metoprolol Succinate XL TAB* 50 MG PO SCH (09:00)
[2018-07-19] MEDS: Enalapril TAB* 5 MG PO SCH ×2 (09:09→20:43)
[2018-07-19] MEDS: Hydrochlorothiazide TAB* 25 MG PO SCH (09:09)
[2018-07-19] MEDS: Omeprazole CAP* 20 MG PO SCH (09:13)
[2018-07-19] MEDS: Ticagrelor* 90 MG TAB PO SCH ×2 (09:14→20:42)
[2018-07-19] MEDS: Aspirin EC TAB* 81 MG TAB.EC PO SCH (09:14)
[2018-07-19] MEDS: Methimazole TAB* 5 MG PO SCH (09:14)
[2018-07-19] MEDS: Docusate CAP* 100 MG PO SCH ×2 (09:14→20:42)
[2018-07-19] MEDS ORDERED: Metoprolol Tartrate IV* 1 MG/ML 5 ML VIAL IV ONE (09:56)
[2018-07-19] MEDS ORDERED: Metoprolol Tartrate IV* 1 MG/ML 5 ML VIAL ONE (09:58)
[2018-07-19] MEDS ORDERED: Methimazole TAB* 5 MG PO ONE (09:59)
--- NOTE | 2018-07-19 13:16 | PN ---
Subjective Date of Service: 07/19/18 Interval History: When up to bathroom and sitting up today, pt's HR went up to 130's(sinus tachy) , asymptomatic, required Lopressor IV 5 mg to control it. Pt otherwise feels well, denies pain/SOB Objective Active Medications: Al Hydrox/Mg Hydrox/Simethicone (Maalox Plus*) 30 ml PO Q6H PRN PRN Reason: INDIGESTION Aspirin (Aspirin Ec Tab*) 81 mg PO QAM [facility]PL[facility] Last Admin: 07/19/18 09:14 Dose: 81 mg Atorvastatin Calcium (Lipitor*) 80 mg PO 2100 [facility] Last Admin: 07/18/18 21:15 Dose: 80 mg Docusate Sodium (Colace Cap*) 100 mg PO BID [facility] Last Admin: 07/19/18 09:14 Dose: 100 mg Enalapril Maleate (Vasotec Tab*) 2.5 mg PO BID [facility] Last Admin: 07/19/18 09:09 Dose: 2.5 mg Fentanyl Citrate (Fentanyl*) 25 mcg IV Q2H PRN PRN Reason: PAIN Last Admin: 07/18/18 21:07 Dose: 25 mcg Heparin Sodium (Porcine) (Heparin Vial(*)) 5,000 units SUBCUT Q8HR [facility] Last Admin: 07/19/18 04:56 Dose: Not Given Hydrochlorothiazide (Hydrodiuril Tab*) 12.5 mg PO DAILY [facility] Last Admin: 07/19/18 09:09 Dose: 12.5 mg Magnesium Hydroxide (Milk Of Magnesia Liq*) 30 ml PO Q4H PRN PRN Reason: CONSTIPATION Methimazole (Tapazole Tab*) 30 mg PO DAILY [facility] Metoprolol Succinate (Toprol Xl Tab*) 50 mg PO DAILY [facility] Last Admin: 07/19/18 09:13 Dose: 50 mg Nitroglycerin (Nitroglycerin Tab 0.4 Mg*) 0.4 mg SL Q5M PRN PRN Reason: ANGINA Omeprazole (Prilosec Cap*) 40 mg PO QAM [facility] Last Admin: 07/19/18 09:13 Dose: 40 mg Pramipexole Dihydrochloride (Mirapex Tab*) 0.125 mg PO BEDTIME [facility] Last Admin: 07/18/18 21:28 Dose: 0.125 mg Ticagrelor (Brilinta*) 90 mg PO BID [facility] Last Admin: 07/19/18 09:14 Dose: 90 mg Vital Signs - 8 hr 07/19/18 07/19/18 07/19/18 05:53 06:00 06:01 Temperature Pulse Rate 74 77 Respiratory 18 16 16 Rate Blood Pressure 136/71 (mmHg) O2 Sat by Pulse 98 96 Oximetry 07/19/18 07/19/18 07/19/18 07:00 07:01 07:57 Temperature 97.8 F Pulse Rate 87 84 Respiratory 24 25 Rate Blood Pressure 139/84 (mmHg) O2 Sat by Pulse 96 97 Oximetry 07/19/18 07/19/18 07/19/18 08:00 08:01 09:00 Temperature Pulse Rate 86 87 126 Respiratory 25 21 28 Rate Blood Pressure 152/94 146/97 (mmHg) O2 Sat by Pulse 97 97 98 Oximetry 07/19/18 07/19/18 07/19/18 09:01 10:00 10:02 Temperature Pulse Rate 132 130 126 Respiratory 28 20 20 Rate Blood Pressure 158/82 (mmHg) O2 Sat by Pulse 99 98 99 Oximetry 07/19/18 07/19/18 07/19/18 11:00 11:43 11:57 Temperature 98.1 F Pulse Rate 84 92 Respiratory 23 25 Rate Blood Pressure 135/76 (mmHg) O2 Sat by Pulse 100 98 Oximetry Oxygen Devices in Use Now: None Appearance: 78 yo F in nAD, aAOx3 Eyes: No Scleral Icterus, PERRLA Ears/Nose/Mouth/Throat: NL Teeth, Lips, Gums, Mucous Membranes Moist Neck: NL Appearance and Movements; NL JVP, Trachea Midline Respiratory: Symmetrical Chest Expansion and Respiratory Effort, Clear to Auscultation Cardiovascular: NL Sounds; No Murmurs; No JVD, RRR Abdominal: NL Sounds; No Tenderness; No Distention, No Hepatosplenomegaly Lymphatic: No Cervical Adenopathy Extremities: No Edema, No Clubbing, Cyanosis Skin: No Nodules or Sclerosis, - - R groin cath access with small hematoma Neurological: Alert and Oriented x 3, NL Muscle Strength and Tone Result Diagrams: 07/19/18 03:52 07/19/18 03:52 Microbiology and Other Data: Microbiology 07/16/18 07:57 Aerobic Blood Culture - Preliminary Blood Venous No Growth Day 1 Anaerobic Blood Culture - Preliminary No Growth Day 1 07/16/18 07:50 Aerobic Blood Culture - Preliminary Blood Venous No Growth Day 1 Anaerobic Blood Culture - Preliminary No Growth Day 1 Assess/Plan/Problems-Billing Assessment: 78 yo f with h/o toxic multinodular goiter c/o ZUNIGA and PND - Patient Problems (1) SOB (shortness of breath) Comment: stress test suboptimal due to ZUNIGA. Nuclear part shows large fixed defect. Trop peaked at 0.4. S/p cath 07/18/18, stent to circ. now in ICU. On ASA/Brilinta May be transferred to telem floor if no more tachy episodes today (2) Hyperthyroidism Comment: d/w Dr. [place], erlin increase methimazole to 30 mg , pt to f/u with Dr. Colorado next week in office (3) HTN (hypertension) Comment: lopressor increased, home enalapril and HCTZ restarted (4) DVT prophylaxis Comment: HSQ (5) Dyslipidemia Comment: started on lipitor , LDL 89 (6) Sinus tachycardia Comment: pt started episodes of asymptomatic sinus tachy up to 130's BPM. D/w cardiology, will increase toprol XL to 75 mg daily Status and Disposition: inpatient, cont telem monitoring and ambulation, may be able to go home tomorrow
[2018-07-19] MEDS ORDERED: Metoprolol Succinate XL TAB* 25 MG PO ONE (13:40)
[2018-07-19] MEDS: Atorvastatin* 80 MG TAB PO SCH (20:41)
[2018-07-19] MEDS: Pramipexole TAB* 0.125 MG PO SCH (20:42)
[2018-07-20] MEDS: Heparin VIAL(*) 5000 UNITS/ML VIAL (FIVE THOUSAND) SUBCUT SCH ×2 (06:11→14:41)
[2018-07-20 06:14] LABS: Hematocrit 41 % (35-47); Hemoglobin 13.8 g/dl (12.0-16.0); Mean Corpuscular HGB Conc 34 g/dl (31-36); Mean Corpuscular Hemoglobin 25 pg (27-31); Mean Corpuscular Volume 75 fL (80-97); Mean Platelet Volume 7.9 fL (7.4-10.4); Platelet Count 218 10^3/ul (150-450); Red Blood Count 5.51 10^6/ul (4.00-5.40); Red Cell Distribution Width 15 % (10.5-15); White Blood Count 6.2 10^3/ul (3.5-10.8)
[2018-07-20 06:27] LABS: EGFR Non-African American 71.4 (>60)
--- NOTE | 2018-07-20 08:41 | PN ---
Subjective Date of Service: 07/20/18 Interval History: f/u NSTEMI No CP, dyspnea, palpitations or syncope BP and pulse labile in setting of hyperthyroidism tele: NSR and sinus tachycardia, no arrhythmias Medications Active Medications: Al Hydrox/Mg Hydrox/Simethicone (Maalox Plus*) 30 ml PO Q6H PRN PRN Reason: INDIGESTION Aspirin (Aspirin Ec Tab*) 81 mg PO QAM REPLACED BY [facility] Last Admin: 07/19/18 09:14 Dose: 81 mg Atorvastatin Calcium (Lipitor*) 80 mg PO 2100 REPLACED BY [facility] Last Admin: 07/19/18 20:41 Dose: 80 mg Docusate Sodium (Colace Cap*) 100 mg PO BID REPLACED BY [facility] Last Admin: 07/19/18 20:42 Dose: 100 mg Enalapril Maleate (Vasotec Tab*) 2.5 mg PO BID REPLACED BY [facility] Last Admin: 07/19/18 20:43 Dose: 2.5 mg Fentanyl Citrate (Fentanyl*) 25 mcg IV Q2H PRN PRN Reason: PAIN Last Admin: 07/18/18 21:07 Dose: 25 mcg Heparin Sodium (Porcine) (Heparin Vial(*)) 5,000 units SUBCUT Q8HR REPLACED BY [facility] Last Admin: 07/20/18 06:11 Dose: 5,000 units Hydrochlorothiazide (Hydrodiuril Tab*) 12.5 mg PO DAILY REPLACED BY [facility] Last Admin: 07/19/18 09:09 Dose: 12.5 mg Magnesium Hydroxide (Milk Of Magnesia Liq*) 30 ml PO Q4H PRN PRN Reason: CONSTIPATION Methimazole (Tapazole Tab*) 30 mg PO DAILY REPLACED BY [facility] Metoprolol Succinate (Toprol Xl Tab*) 75 mg PO DAILY REPLACED BY [facility] Nitroglycerin (Nitroglycerin Tab 0.4 Mg*) 0.4 mg SL Q5M PRN PRN Reason: ANGINA Omeprazole (Prilosec Cap*) 40 mg PO QAM REPLACED BY [facility] Last Admin: 07/19/18 09:13 Dose: 40 mg Pramipexole Dihydrochloride (Mirapex Tab*) 0.125 mg PO BEDTIME REPLACED BY [facility] Last Admin: 07/19/18 20:42 Dose: 0.125 mg Ticagrelor (Brilinta*) 90 mg PO BID REPLACED BY [facility] Last Admin: 07/19/18 20:42 Dose: 90 mg Objective Vital Signs: Temp Pulse Resp BP Pulse Ox 97.1 F 93 20 163/87 96 07/20/18 07:30 07/20/18 08:01 07/20/18 08:01 07/20/18 08:00 07/20/18 08:01 Oxygen Devices in Use Now: None Appearance: nad, pleasant Ears/Nose/Mouth/Throat: Clear Oropharnyx, Mucous Membranes Moist Neck: NL Appearance and Movements; NL JVP, Trachea Midline Respiratory: Symmetrical Chest Expansion and Respiratory Effort, Clear to Auscultation Cardiovascular: NL Sounds; No Murmurs; No JVD, RRR, No Edema Abdominal: NL Sounds; No Tenderness; No Distention, - - obese Extremities: No Edema, No Clubbing, Cyanosis, - Skin: No Rash or Ulcers Neurological: Alert and Oriented x 3 Laboratory Results: 07/20/18 05:56 07/20/18 05:56 INR (Anticoag Therapy) 0.99 (0.77-1.02) 07/16/18 07:50 APTT 25.5 seconds (26.0-36.3) L 07/16/18 07:50 Total Bilirubin 0.80 mg/dL (0.2-1.0) 07/16/18 07:50 AST 27 U/L (13-39) 07/16/18 07:50 ALT 23 U/L (7-52) 07/16/18 07:50 Alkaline Phosphatase 134 U/L (34-104) H 07/16/18 07:50 B-Natriuretic Peptide 14 pg/mL (<=100) 07/16/18 07:50 Total Protein 7.2 g/dL (6.4-8.9) 07/16/18 07:50 Albumin 4.2 g/dL (3.2-5.2) 07/16/18 07:50 Globulin 3.0 g/dL (2-4) 07/16/18 07:50 Albumin/Globulin Ratio 1.4 (1-3) 07/16/18 07:50 Triglycerides 124 mg/dL 07/18/18 06:08 Cholesterol 145 mg/dL 07/18/18 06:08 LDL Cholesterol 89 mg/dL 07/18/18 06:08 HDL Cholesterol 31.4 mg/dL 07/18/18 06:08 TSH Cancelled 07/17/18 06:48 07/16/18 07/16/18 07/16/18 07:50 13:43 18:44 Troponin I 0.07 H* 0.41 H* 0.42 H* 07/16/18 07/17/18 22:31 06:48 Troponin I 0.44 H* 0.40 H* Diagnostic Imaging: echo 07/17/2018: Hyperdynamic LVEF, no segmental WMA or significant valvular abnormalities EKG Data: EKG this AM shows NSR, RBBB, old IWMI Assessment/Plan 78 year old woman hx of HTN, obesity, active hyperthyroidism a/w NSTEMI s/p PCI/ LISA to Lcx, LVEF normal, doing well - Continue aspirin 81 mg po daily - Continue brillinta 90 mg po bid - Continue atorvastatin 80 mg po daily - Continue home BP medications - Continue BB for thyroid disease and post-AR, can uptitrate as needed would not be overly aggressive with this or labile BP - Thyroid tx per Endocrinology/Primary service - Patient can be discharged from a cardiac standpoint - Will arrange cardiology follow up Thank you for allowing me to participate in the cardiovascular care of this patient. Please do not hesitate to contact me with questions or concerns.
[2018-07-20] MEDS: Aspirin EC TAB* 81 MG TAB.EC PO SCH (08:51)
[2018-07-20] MEDS: Docusate CAP* 100 MG PO SCH (08:52)
[2018-07-20] MEDS: Omeprazole CAP* 20 MG PO SCH (08:52)
[2018-07-20] MEDS: Ticagrelor* 90 MG TAB PO SCH (08:52)
[2018-07-20] MEDS: Enalapril TAB* 5 MG PO SCH (08:54)
[2018-07-20] MEDS: Hydrochlorothiazide TAB* 25 MG PO SCH (08:54)
[2018-07-20] MEDS ORDERED: Methimazole TAB* 5 MG PO SCH (09:00)
[2018-07-20] MEDS ORDERED: Metoprolol Succinate XL TAB* 100 MG PO SCH (09:00)
[2018-07-20] MEDS ORDERED: Metoprolol Tartrate TAB* 25 MG PO ONE (09:10)
--- NOTE | 2018-07-20 09:12 | PN ---
Hospitalist Progress Note Date of Service: 07/20/18 Walked pt in [place], ~80 yds. HR 105 at start, by end 140s. Asymptomatic. metoprolol succinate increased to 100mg daily(given additional 25 after just got 75. Transfer to N. May be able to be discharged in afternoon.
[2018-07-20] MEDS: Nitro Patch/OINT Remove PATCH OFF SCH (09:16)
[2018-07-20 15:46] VITALS: BP 116/77
--- NOTE | 2018-07-21 03:39 | DS ---
DISCHARGE SUMMARY: DATE OF ADMISSION: 07/16/18 DATE OF DISCHARGE: 07/20/18 ADMITTING PROVIDER: Dr. Lauren Maria. ATTENDING PHYSICIAN ON DAY OF DISCHARGE: Wilder Alexandra MD PRIMARY CARE PHYSICIAN: Dr. Suri Villavicencio. OUTPATIENT FEDERAL LAW CLERK: Dr. Venkat Colorado. NEW OUTPATIENT VOCATIONAL REHABILITATION TEACHER: Dr. Von Naranjo. AUTO WRECKER: Dr. Nino Rosen. CHIEF COMPLAINT: Shortness of breath, chest pressure with exertion. PRINCIPAL DIAGNOSES: 1. Non-ST elevation myocardial infarction, status post drug-eluting stent to left circumflex. 2. Hyperthyroidism with resultant tachycardia. 3. Toxic nodular goiter. HISTORY OF PRESENT ILLNESS/HOSPITAL COURSE: Carola Samuel is a 78-year-old female with past medical history of toxic nodular goiter, diagnosed in April 2018, on methimazole, following with Dr. Colorado; hypertension; GERD, who presented with dyspnea on exertion and chest pressure. Please see H and P of Dr. Lauren Maria for full details. Her EKG demonstrated a right bundle branch block and an initial troponin was 0.07. A CT chest angiogram was ordered by Dr. Baird in the emergency room, which showed no evidence of pulmonary emboli, no evidence of aortic dissection or thoracic aortic aneurysm, showed enlarged lobular thyroid gland and cholelithiasis without biliary duct dilatation. She was referred to the hospitalist service for admission, troponins were trended and would peak at 0.44 later hospital day #1. Dr. Sun, Cardiology, was consulted. The patient had a nuclear stress test and echocardiogram. The transthoracic echocardiogram on 07/17/18 demonstrated EF 65 %. No clinically significant diastolic dysfunction evident, mild concentric left ventricular hypertrophy, trace mitral regurgitation. No prior echo to compare. Her nuclear stress test of 07/17/18 demonstrated large fixed defect of the lateral wall suggestive of previous infarct and deemed at intermediate risk. Her LDL was 89, HDL 31. Dr. Sun found outpatient EKG from 2010, which did demonstrate a right bundle branch block and negative stress test in 2010 and with longstanding dyspnea on exertion, she recommended cardiac catheterization. Discussed case with Dr. Garcia of Interventional Cardiology. Dr. Rosen performed the procedure on 07/18/18 and official report is pending, but drug- eluting stent was placed to 99% occluded left circumflex. She was started on aspirin and Brilinta 90 mg p.o. b.i.d. She was recovering well on the ICU, but noted to be continuously tachycardic with exertion and of note, thyroid studies on admission indicated TSH of 0.00 same as last 2 outpatient studies and a free T4 of 3.45 compared to 2.36 on 06/27/[address] Maria discussed the case with Dr. Venkat Colorado, outpatient claim clerk, and her methimazole was raised to 30 mg daily. Her beta ian was titrated up over the next 2 days and should be discharged on 100 mg of metoprolol succinate daily. She felt well and in fact much improved without any angina or dyspnea on exertion. She will be following up with Dr. Von Naranjo as her new outpatient hospice consultant and has an upcoming additional thyroid test in the coming week, although she could not elaborate exactly what was planned. DISCHARGE MEDICATIONS: Include: 1. Aspirin 81 mg daily. 2. Atorvastatin 80 mg daily (new). 3. Enalapril 2.5 mg p.o. b.i.d. 4. Hydrochlorothiazide 12.5 mg p.o. daily. 5. Methimazole 30 mg p.o. daily (increased from 20 mg daily). 6. Metoprolol succinate 100 mg p.o. daily (increased from 25 mg daily). 7. Omeprazole 40 mg p.o. q.a.m. 8. Pramipexole 0.125 mg p.o. at bedtime. 9. Brilinta 90 mg p.o. b.i.d. (new). DISCHARGE DIET: Heart healthy, unchanged. RESTRICTIONS: She was recommended to remain inactive for 3 days after the groin site access, avoid lifting anything greater than 10 pounds or more for 3 days, do not sit on hot tub, bathtub, or swimming for 1 week. FOLLOWUP: She is recommended to follow up with Dr. Von Naranjo as new hospice consultant, Dr. Nino Rosen as childcare attendant, and Dr. Suri Villavicencio within 4 to 7 days. She was also recommended to follow with Dr. Colorado as already scheduled reportedly in the coming week. Of note, she did not get A1c test, her glucose levels in the range between 116 and 132. She should repeat goiter and hyperthyroidism workup as Dr. Colorado desires. TIME SPENT: Time spent on discharge 40 minutes. [id number]/[facility] #: [id number] SHAINA
[2018-07-21] MEDS ORDERED: Metoprolol Succinate XL TAB* 100 MG PO SCH (09:00)
--- NOTE | 2018-07-22 03:50 | CATH ---
CC: Dr. Suri Villavicencio; Dr. Von Naranjo. * CARDIAC CATHETERIZATION AND INTERVENTIONAL REPORT: DATE OF PROCEDURE: 07/18/18 INDICATION FOR PROCEDURE: The patient with acute coronary syndrome with abnormal stress test suggesting severe ischemia to the posterolateral wall. PROCEDURE: Coronary arteriography, primary stenting of the mid circumflex artery utilizing a 2.75 x 16 mm long Synergy drug-eluting stent. The patient was interviewed and examined on the floor of the hospital with the risks and benefits were explained. She understood them and wished to proceed. The right radial artery was assessed on the floor of the hospital as an approachable access. PRECARDIAC CATHETERIZATION LABORATORY RESULTS: Hemoglobin and hematocrit of 13.1 and and 40 with a platelet count of 192,000; BUN and creatinine of 18 and 0.7, sodium 140, potassium 4.1, chloride 109, bicarb 25. APPROACH UTILIZED: Initial attempts were made via the right radial artery, but were aborted due to significant tortuosity within the subclavian artery and as such the right femoral artery approach was utilized for the procedure. EQUIPMENT UTILIZED: 1. Radial artery sheath was a 6-Mauritanian Terumo [place] sheath. 2. Diagnostic guidewire was a Ruiz 260 length curved guidewire in addition to a Wholey radial length guidewire. 3. Right femoral sheath was an Jena 11-Mauritanian sheath. 4. Diagnostic coronary catheters, a FL3.5 left coronary catheter and a FR4 curve 5- Mauritanian right coronary catheter. 5. Left heart catheterization catheter was a 5-Mauritanian angled pigtail catheter. 6. Femoral artery sheath for the intervention - a 6.5-Mauritanian Merit Prelude sheath. 7. The guiding catheter was a 6-Mauritanian VL3.5 curve guide catheter. 8. The interventional wire - a 300 cm All-Star wire. 9. The stent utilized was a 2.75 x 16 mm long Synergy drug-eluting stent. 10. The closure device - was a 6/7-Mauritanian Mynx closure device. MEDICATIONS GIVEN DURING THE PROCEDURE: Included: 1. Versed 1.0 mg total given intravenously. 2. Fentanyl 12.5 mg intravenously. 3. Brilinta 180 mg orally. 4. Angiomax bolus and Angiomax drip was utilized when ACT was found to be subtherapeutic. 5. Intracoronary nitroglycerin. DESCRIPTION OF PROCEDURE: The patient was brought to the cardiovascular laboratory where a formal time-out was performed. She was prepped and draped in sterile fashion. Under ultrasound guidance, the right radial artery was entered and the sheath was placed. Unfortunately, the diagnostic catheter could not be advanced through the subclavian system due to marked tortuosity. This approach was aborted. The right femoral artery approach was then utilized. The 5-Mauritanian sheath was placed and diagnostic coronary arteriography was performed. Following this, the 5- Mauritanian sheath was exchanged for a 6-Mauritanian sheath and guiding views were obtained. The guidewire was advanced down the circumflex artery and primary stenting was performed utilizing 2.75 x 16 mm long Synergy drug-eluting stent. Following this, the guide catheter was removed and hemostasis was obtained with the Mynx closure device with good hemostasis. The total contrast used was 145 cc of Omnipaque dye. The radiation exposure included 12.9 minutes of fluoro time. The air kerma radiation was 1413 mGy. The DAP radiation was 10,017 microgray per meter squared. RESULTS: HEMODYNAMIC DATA: LEFT HEART CATHETERIZATION: Central aortic pressure recorded at 149/72 with a mean of 106. Left ventricular pressure 150 over left ventricular end-diastolic pressure of 17. CORONARY ARTERIOGRAPHY: A. Left coronary artery: 1. Left main - a short nature and widely patent. 2. Left anterior descending artery - the left anterior descending artery supplied a very thin first diagonal branch followed by a second, third, and fourth diagonal branch. There was mild luminal irregularities in the ostial area of 15% to 20%. Just after the first septal grader patrol was a mild area of 10 % narrowing. No significant obstruction was seen within the left anterior descending artery. 3. Circumflex artery - a nondominant vessel supplying a high thin first obtuse marginal branch followed by second thin obtuse marginal branch. There was a third slightly larger obtuse marginal branch, after which there was tapering of the circumflex with a critical 95% blockage quite eccentric in nature leading to a bifurcating low-lying obtuse marginal branch. B. Right coronary artery - a dominant vessel supplying the several acute marginal branches, the PDA and two posterior left ventricular branches. There was mild luminal irregularity seen in the proximal portion of the vessel with a degree of luminal reduction of 10% to 15%. No significant obstruction was seen throughout the right coronary artery system. INTERVENTION INTO MID CIRCUMFLEX ARTERY: Successful reduction of critical 95% distal circumflex artery with primary stenting utilizing a 2.75 x 16 mm long Synergy drug-eluting stent dilated to high pressures to obtain 0% residual stenosis, LEENA-3 flow, and no dissection seen. OVERALL ASSESSMENT: Significant single vessel disease involving the distal circumflex with primary stenting utilizing a 2.75 x 16 mm long Synergy drug-eluting stent as described above. The patient should be maintained on dual-antiplatelet therapy for ideally 1 year's time given her acute coronary syndrome presentation. Aggressive risk factor management and cholesterol management will be pursued by her primary mission assessment specialist, Dr. Von Naranjo, who will be following her up as an outpatient. [id number]/[facility] #: [id number] [facility]
== END 2018-07-20 15:49 | disposition home or self-care (01) | DRG 247 ==
LOC: ED 06:42 → MEDTELE 12:08 → OBSVTOIN 07-17 10:25 → ICU 07-18 11:36
PROVIDERS: ADMIT Internal Medicine; ATTEND Internal Medicine
PROC: 4A02XM4 Measurement of Cardiac Total Activity, External Approach (ICD-10-PCS; principal; 2018-07-17)
PROC: 027034Z Dilation of Coronary Artery, One Artery with Drug-eluting Intraluminal Device, Percutaneous Approach (ICD-10-PCS; 2018-07-18)
PROC: B2111ZZ Fluoroscopy of Multiple Coronary Arteries using Low Osmolar Contrast (ICD-10-PCS; 2018-07-18)
PROC: 4A023N7 Measurement of Cardiac Sampling and Pressure, Left Heart, Percutaneous Approach (ICD-10-PCS; 2018-07-18)
DX: I21.4 Non-ST elevation (NSTEMI) myocardial infarction (principal); I45.10 Unspecified right bundle-branch block; I10 Essential (primary) hypertension; E05.20 Thyrotoxicosis with toxic multinodular goiter without thyrotoxic crisis or storm; K80.20 Calculus of gallbladder without cholecystitis without obstruction; E66.9 Obesity, unspecified; K21.9 Gastro-esophageal reflux disease without esophagitis; R00.0 Tachycardia, unspecified; I34.0 Nonrheumatic mitral (valve) insufficiency; I25.118 Atherosclerotic heart disease of native coronary artery with other forms of angina pectoris; Z98.51 Tubal ligation status; Z88.2 Allergy status to sulfonamides; Z88.8 Allergy status to other drugs, medicaments and biological substances; Z82.49 Family history of ischemic heart disease and other diseases of the circulatory system; Z80.0 Family history of malignant neoplasm of digestive organs; Z68.31 Body mass index [BMI] 31.0-31.9, adult; Z79.82 Long term (current) use of aspirin; Z79.02 Long term (current) use of antithrombotics/antiplatelets
CPT/HCPCS: 36415; 71046; 71275; 76937; 78452; 80048; 80053; 80061; 81003; 83605; 83735; 83880; 84439; 84443; 84484; 85025; 85027; 85347; 85610; 85652; 85730; 86140; 87040; 93005; 93017; 93306; 93458; 99156; 99157; 99284; A9270-GY; A9502; C1760; C1769; C1876; C1887; C8929; C9600-LC; G0378; J0280; J0583; J1644; J2250; J2785; J3010; J3490; Q9967